=== PATIENT | female | born 1945 | race Caucasian/White ===

== ENCOUNTER 2021-11-30 19:23 | Emergency (ER) | payer MEDICARE, SELFPAY ==
[2021-11-30 19:23] VITALS: BP 152/99; PULSE 71; RESP 16; TEMP 36.7; O2SAT 98; BMI 21.4
--- NOTE | 2021-11-30 19:55 | RAD_ITS ---
INDICATION: fall EXAMINATION/TECHNIQUE: X-RAY - RIGHT XR Shoulder Min 2 Views 2 VIEWS COMPARISON: None. FINDINGS: SOFT TISSUES: No soft tissue swelling or gas. No radiopaque foreign body. BONES/JOINTS: Avulsion fracture without displacement involving the greater tuberosity. No other fracture exemplified. Normal glenohumeral and acromioclavicular joint spacing and alignment. Preservation of the joint space and no degenerative bony proliferative changes. No sclerotic or destructive changes observed. Nodule in the periphery of the right lower lobe, 4 mm. Correlation with prior chest imaging recommended. RAD/Shoulder min 2 Views IMPRESSION: Motion fracture right greater tuberosity. Electronically Signed: Marck Holland DO at 20:32 EDT ,
--- NOTE | 2021-11-30 20:00 | EDS_ITS ---
HPI History of Present Illness HPI Narrative: Tripped and fell in her home landing on the hardwood floor striking her right forehead and right shoulder. Chief Complaint: Upper Extremity Injury Informant: patient Occured/Mechanism Mechanism/Context: Yes injury and Yes blunt trauma Onset/Context/Timing Onset: Today and Hours Context: Sudden Onset Timing: Continuous Current Severity: Moderate Maximum Severity: Moderate Associated Symptoms Associated Symptoms: Negative for Parasthesia, Weakness or Loss of Funtion Narrative Narrative: 76-year-old female history of high cholesterol. She was coming in for about side will begin rain today. She was carrying a pillow wearing flip-flops. She tripped fell striking her right forehead and right shoulder on the hardwood leena or. No LOC. She is on no blood thinners not even aspirin. Denies any neck pain. Denies any vomiting. Complaining of right shoulder pain. She is right- hand dominant. Prior similar symptoms: No Recent Illness/Hospitalization: No PFSH PFSH Medical History Arthritis High cholesterol Home Medications atorvastatin 10 mg tablet 10 mg PO QHS 09/10/15 [History Last Taken Unknown] calcium carbonate 600 mg-vitamin D3 20 mcg (800 unit) tablet 1 ea PO BID 09/10/15 [History Last Taken Unknown] fish oil-dha-epa 1,200 mg-144 mg-216 mg capsule 1 ea PO BID 09/10/15 [History L ast Taken Unknown] ibuprofen 200 mg tablet (Motrin IB) 400 mg PO PRN PRN Pain 09/10/15 [History Last Taken Unknown] multivit with orwjghxt-yncz-QA-lutein 8 mg iron-400 mcg-300 mcg tablet (Centrum Silver Women) 1 ea PO DAILY 09/10/15 [History Last Taken Unknown] omeprazole 20 mg capsule,delayed release 20 mg PO QHS PRN Indigestion 09/10/15 [History Last Taken Unknown] aspirin 325 mg tablet 325 mg PO BID ##60 09/12/15 [Rx Last Taken Unknown] cephalexin 500 mg capsule (Keflex) 500 mg PO 4X/DAY ##4 09/12/15 [Rx Last Taken Unknown] docusate sodium 100 mg capsule (DOK) 100 mg PO BID ##20 09/12/15 [Rx Last Taken Unknown] hydrocodone-acetaminophen 5-325mg 5mg-325mg 1 - 2 tab PO Q4H PRN PRN Pain ##60 09/12/15 [Rx Last Taken Unknown] ondansetron 4 mg disintegrating tablet 4 mg PO Q6H PRN PRN Nausea ##20 09/12/15 [Rx Last Taken Unknown] Allergy/AdvReac Type Severity Reaction Status Date / Time No Known Allergies Allergy Verified 11/30/21 19:26 Social History Smoking Status: Never smoker ROS ROS ED ROS Narrative Denies recent illness. Review of Systems ROS Unobtainable: Denies due to encephalopathy Constitutional Constitutional ED: Denies chills Eyes Eyes: Denies blurry vision ENT ENT ED: Denies ear pain Cardiovascular Cardiovascular: Denies chest pain Respiratory/Chest Respiratory/Chest: Denies cough Gastrointestinal Gastrointestinal: Denies abdominal pain Genitourinary Genitourinary ED: Denies dysuria Musculoskeletal Musculoskeletal: Denies back pain Neurologic Neurologic: Denies headache(s) Psychiatric Psychiatric: Denies anxiety Endocrine Endocrinology: Denies cold intolerance Hematologic/Lymphatic Hematologic/Lymphatic: Denies easy bleeding Allergic/Immunologic Allergic/Immunologic ED: Denies mouth swelling EXAM Physical Exam Narrative Exam Narrative: Well-appearing 76-year-old female. Looks younger than stated age. Vital signs stable afebrile. H EENT exam give dry reactive light. She has a contusion to her right for about the size of a quarter. No other facial or scalp trauma C- spine nontender trachea midline. Lungs are clear. Heart regular rhythm no murmur. Chest wall nontender. Abdomen soft nontender. Pelvic girdle intact. Left upper both lower extremities are nontender normal range of motion. Normal strength. Right shoulder pain on palpation. Limited AB and adduction due to pain. Distal humerus, elbow, right forearm wrist and hand are nontender neurovascular intact with normal marine gear keeper strength. Back and spine nontender. Neurologically she is awake and alert with no focal motor deficits. GCS of 15. Const Vital Signs: 11/30/21 19:23 11/30/21 19:34 Temperature 98.0 F Temperature Source Temporal Pulse Rate 71 Respiratory Rate 16 Respiratory Effort Normal Non-Labored Respiratory Depth Normal Respiratory Pattern Normal Blood Pressure 152/99 H Blood Pressure Mean 116 Pulse Ox 98 Oxygen Delivery Method Room Air Room Air Positive well nourished and well developed; Negative for obese, cachectic, contractures or unkempt General Appearance ED: well developed; Negative for unkempt, cachectic or contractures Nutritional Appearance: Negative for cachectic or obese HEENT Reports moist mucous membranes trauma; Negative for normocephalic, atraumatic or tenderness Eyes PERRL and EOMs intact bilaterally Neck full ROM and supple General: Negative for tenderness Lymph Lymphatic: Negative for other Chest Wall inspection of chest normal and palpation of chest normal Resp normal respiratory effort and clear to auscultation bilaterally Effort and Inspection: Negative for pain with movement Auscultation: Negative for rales or rhonchi Cardio regular rate, regular rhythm, S1 normal heart sound, S2 normal heart sound and no murmurs Rate: Negative for bradycardia Rhythm: Negative for abnormal rhythm GI non-tender, non-distended and no masses Inspection: Negative for abdominal distention Auscultation: normoactive bowel sounds Palpation: soft; Negative for tender or guarding Back/Spine no CVA tenderness General Back: Negative for CVA tenderness Cervical Spine: Negative for cervical spine tenderness Thoracic Spine / Upper Back: Negative for thoracic spinal tenderness Lumbar Spine / Lower Back: Negative for lumbar spinal tenderness Extremity normal to inspection and full ROM Extremity Narrative: Except right shoulder tender. Held flexed at the elbow. Internally rotated. Does not want to do any range of motion of the shoulder due to pain. Right elbow forearm wrist and hand are nontender neurovascular intact. Neuro oriented x3, CN's II-XII intact bilaterally, moves all extremities, no focal motor deficits and no sensory deficits noted Sensorium / Orientation: alert, oriented to person, oriented to place and oriented to time; Negative for orientation impaired, lethargic or stuporous Motor Exam: strength 5/5 throughout Psych mental status grossly normal Appearance: Negative for unkempt Attitude: No agitated Mood & Affect: Negative for depressed, anxious or tearful Skin General Skin Exam: Negative for petechiae Lesions: no lesions Rashes: no rashes Trauma: no lacerations or abrasions MDM MDM MDM Narrative Medical decision making narrative: 76-year-old at home tripped and fell has a contusion to her right forehead. She is on no blood thinners. No LOC. Completely normal neurologic exam I do not think she needs any imaging or brain. She does have pain in her right shoulder from the fall x-ray being obtained. She did not want anything for pain. Repeat exam unchanged. Discussed with patient x-rays. She was placed in a sling. Follow-up with orthopedics. Radiography Diagnostic Testing: Right shoulder x-ray 2 views interpreted by myself shows avulsion fracture of the humeral head at the greater tuberosity. I did go over these films with the patient and her . Discharge Plan Triage Chief Complaint: Upper Extremity Injury ED Provider: Chandrakant Bernal Dx/Rx/DC Orders Clinical Impression: Fall, Head injury, Fracture, humerus Instructions: ED Fracture, Upper Extremity, ED Head Injury (Adult) Prescriptions: No Action atorvastatin 10 MG tablet 10 mg PO QHS Label Comments: CHOLESTEROL omeprazole 20 MG capsule 20 mg PO QHS PRN (Reason: Indigestion) Label Comments: REFLUX fish oil-dha-epa 1 EACH capsule 1 ea PO BID Label Comments: SUPPLEMENT narhlpjn-hgg-dzoq-FA-lutein [Centrum Silver Women] 1 EACH tablet 1 ea PO DAILY calcium carbonate-vitamin D3 1 EACH tablet 1 ea PO BID ibuprofen [Motrin IB] 200 MG tablet 400 mg PO PRN PRN (Reason: Pain) aspirin 325 MG tablet 325 mg PO BID Qty: 60 0RF hydrocodone-acetaminophen 1 TABLET tablet 1 - 2 tab PO Q4H PRN PRN (Reason: Pain) Qty: 60 0RF cephalexin [Keflex] 500 MG capsule 500 mg PO 4X/DAY Qty: 4 0RF docusate sodium [DOK] 100 MG capsule 100 mg PO BID Qty: 20 1RF ondansetron 4 MG tablet 4 mg PO Q6H PRN PRN (Reason: Nausea) Qty: 20 0RF Primary Care Provider: Abilio Mcbride Referrals: Abilio Mcbride DO [Primary Care Provider] - Colt Driscoll MD [STAFF PHYSICIAN] - As soon as possible Activity Restrictions/Additional Instructions: Ice to your shoulder. Sling when you are up and around. You can take it off to sleep and to bathe. Tylenol and Motrin for pain. Head injury instructions return if severe headache, vomiting or not acting herself. Call and follow-up with orthopedic doctor for your shoulder fracture. Disposition Disposition: Home, Self Care
== END 2021-11-30 20:34 | disposition home or self-care (01) ==
LOC: ED 20:14
PROVIDERS: Emergency Provider Emergency Medicine; PCP Student in an Organized Health Care Education/Training Program; Visit Provider Emergency Medicine
DX: S09.90XA Unspecified injury of head, initial encounter (principal); S42.251A Displaced fracture of greater tuberosity of right humerus, initial encounter for closed fracture; E78.00 Pure hypercholesterolemia, unspecified; M19.90 Unspecified osteoarthritis, unspecified site; W01.0XXA Fall on same level from slipping, tripping and stumbling without subsequent striking against object, initial encounter; Z79.899 Other long term (current) drug therapy
CPT/HCPCS: 73030; 99282

== ENCOUNTER → 2022-04-23 | Outpatient (CLI) | payer MEDICARE, SELFPAY ==
[2022-04-20 13:04] LABS: Creatinine, Serum 0.82 mg/dL (0.55-1.02); EST Glomerular Filtration Rate 72 mL/min (>60); Est Glom Filt Rate - Afr Amer 87 mL/min (>60)
--- NOTE | 2022-04-23 15:37 | MRI_ITS ---
EXAM: MR LEFT UPPER EXTREMITY WITHOUT AND WITH INTRAVENOUS CONTRAST, FOREARM CLINICAL INDICATION: SOFT TISSUE MASS L /FOREARM AREA MARKED WITH BEAD, NO PAIN TECHNIQUE: Multiplanar and multisequence MR images of the left forearm without and with intravenous contrast. This report was created using [employer] report [employer] technology. CONTRAST: 10 CC IV CLARISCAN COMPARISON: None. FINDINGS: MRI marker shows no underlying soft tissue or osseous abnormalities. BONES/JOINTS: Unremarkable. No fracture. No abnormal bone marrow signal. No joint effusion. MUSCLES: Unremarkable. No edema or myositis. OTHER SOFT TISSUES: Unremarkable. No solid or cystic mass. MRI/Upper Ext No Joint W/WO Cont IMPRESSION: Unremarkable MRI of the left forearm. Electronically Signed: Saul Tucker MD at 19:14 EST ,
== END | disposition home or self-care (01) ==
LOC: MRI 15:30
PROVIDERS: PCP Student in an Organized Health Care Education/Training Program; Visit Provider Specialist
DX: R22.32 Localized swelling, mass and lump, left upper limb (principal)
CPT/HCPCS: 36415; 73220; 82565; A9575

== ENCOUNTER 2025-05-02 14:27 | Emergency (ER) | payer MEDICARE, SELFPAY ==
[2025-05-02 14:28] VITALS: BP 165/68; PULSE 71; RESP 16; TEMP 36.1; O2SAT 98; BMI 21.5
--- NOTE | 2025-05-02 14:30 | RAD_ITS ---
PROCEDURE: ELBOW MIN 3 VIEWS 05/02/2025 REASON FOR EXAM: FALL TECHNIQUE: Procedure Code: RADEL Modality: DX Procedure: ELBOW MIN 3 VIEWS Laterality: Left elbow COMPARISON: None FINDINGS: Bones: Posteriorly displaced avulsion fracture of the olecranon process of the proximal ulna. Joints: Normal alignment. Soft tissues: Diffuse posterior soft tissue swelling. Other: RAD/Elbow min 3 Views IMPRESSION: Posterior displacement of an avulsion fracture of the olecranon process of the proximal ulna with overlying soft tissue swelling. Reading Location: [id number]
--- NOTE | 2025-05-02 17:08 | EX.ED.UPPERE ---
HPI History of Present Illness Chief Complaint: Upper Extremity Injury Detail of Chief Complaint: Injury to left elbow status post fall Onset/Context/Timing Onset: Today and Hours Context: Sudden Onset Timing: Continuous Quality of Pain: Aching Location: Left elbow left elbow Current Severity: Mild Maximum Severity: Severe Worsened by: Movement Relieved by: Remaining still Associated Symptoms Associated Symptoms: Positive for Loss of Funtion Narrative Narrative: Patient is a 79-year-old xzguu-hhni-drajmgus woman who fell because of mechanical fall. She did not hit her head. She is not on antithrombotic or anticoagulant. She denies visual, auditory or ocular symptoms. She denies neck pain. She denies paresthesia, anesthesia Medic[employer] upper extremity. She presents with significantly swollen left elbow. X-ray was obtained per nurse protocol. She states she has seen Dr. Driscoll in the past. She had to have operation on her right shoulder. Prior similar symptoms: No Recent Illness/Hospitalization: No [facility] Medical History (Updated 05/02/25 @ 17:[address] Zaheer Mixon MD) Osteoporosis High cholesterol Arthritis Home Medications ?Medication ?Instructions ?Recorded ?Last Taken ?Type atorvastatin 10 mg tablet 10 mg PO QHS 09/10/15 Unknown History calcium 600 mg (as 1 ea PO BID 09/10/15 Unknown History carbonate)-vitamin D3 20 mcg (800 unit) tablet fish oil-dha-epa 1,200 mg-144 1 ea PO BID 09/10/15 Unknown History mg-216 mg capsule ibuprofen 200 mg tablet (Motrin IB) 400 mg PO PRN PRN Pain 09/10/15 Unknown History nnwkunli-iqox-cyay 8 mg-folic 400 1 ea PO DAILY 09/10/15 Unknown History mcg-K 50 mcg-lutein 300 mcg tablet (Centrum Silver Women) omeprazole 20 mg capsule,delayed 20 mg PO QHS PRN Indigestion 09/10/15 Unknown History release aspirin 325 mg tablet 325 mg PO BID #60 tabs 09/12/15 Unknown Rx cephalexin 500 mg capsule (Keflex) 500 mg PO 4X/DAY ##4 09/12/15 Unknown Rx docusate sodium 100 mg capsule 100 mg PO BID ##20 09/12/15 Unknown Rx (DOK) hydrocodone-acetaminophen 5-325mg 1 - 2 tab PO Q4H PRN PRN Pain ##60 09/12/15 Unknown Rx 5mg-325mg ondansetron 4 mg disintegrating 4 mg PO Q6H PRN PRN Nausea #20 tabs 09/12/15 Unknown Rx tablet hydrocodone-acetaminophen 5-325mg 1 tab PO Q6H PRN PRN Pain 3 days 05/02/25 Unknown Rx 5mg-325mg #10 TABLETS Allergy/AdvReac Type Severity Reaction Status Date / Time No Known Allergies Allergy Verified 05/02/25 14:29 Family History no significant family his Social History (Updated 05/02/25 @ 17:[address] Zaheer Mixon MD) household members: spouse Smoking Status: Never smoker ROS ROS ED Musculoskeletal Musculoskeletal: Denies back pain, myalgias or neck pain Integumentary Denies Abrasions or rash Neurologic Neurologic: Denies paresthesias or weakness Hematologic/Lymphatic Hematologic/Lymphatic: Denies easy bleeding or easy bruising EXAM Physical Exam Const Vital Signs: 05/02/25 14:28 Temperature 97 F L Temperature Source Temporal Pulse Rate 71 Respiratory Rate 16 Blood Pressure 165/68 H Blood Pressure Mean 100 Pulse Ox 98 Oxygen Delivery Method Room Air Positive well nourished and well developed Constitutional Narrative: Blood pressure is elevated most likely due to the injury and pain General Appearance ED: well developed and NAD HEENT normocephalic and atraumatic Eyes PERRL and EOMs intact bilaterally Resp normal respiratory effort Cardio regular rate and regular rhythm Extremity Negative for normal to inspection or full ROM Extremity Narrative: There is obvious swelling of the left elbow. Median, radial and ulnar function intact. There is no pain the patient over the clavicle or AC joint. There is no pain the patient over the proximal humerus. Neuro oriented x3 and CN's II-XII intact bilaterally Sensorium / Orientation: alert Psych mental status grossly normal Skin Lesions: no lesions Rashes: no rashes MDM MDM MDM Narrative Medical decision making narrative: X-ray was obtained to evaluate for hematoma versus fracture versus fracture dislocation. Radiography Chest X-Ray - ED: Read by ED Physician (Three-view x-ray of the left elbow reveals an avulsion fracture of the olecranon. This is displaced. There is no other abnormality noted.) Diagnostic Testing: Clinical Impression(s) from Imaging Studies Elbow X-Ray 05/02/25 14:30 IMPRESSION: Posterior displacement of an avulsion fracture of the olecranon process of the proximal ulna with overlying soft tissue swelling. Reading Location: [id number] Management Discussion w/another healthcare provider: Physician Non Invasive Cardiologist (Spoke with Dr. Driscoll. He states to place her in slight extension. Have her call the office and he will discuss and make arrangements for ORIF) Discharge Plan Triage Chief Complaint: Upper Extremity Injury ED Provider: Zaheer Mixon Dx/Rx/DC Orders Clinical Impression: Displaced fracture of olecranon process of left ulna without intra-articular extension, Osteoporosis, Injury due to fall Instructions: ED Elbow Fracture Prescriptions: New hydrocodone-acetaminophen 5-325 mg tablet 1 tab PO Q6H PRN PRN (Reason: Pain) 3 Days Qty: 10 0RF No Action atorvastatin 10 MG tablet 10 mg PO QHS Patient Comments: CHOLESTEROL omeprazole 20 MG capsule 20 mg PO QHS PRN (Reason: Indigestion) Patient Comments: REFLUX fish oil-dha-epa 1 EACH capsule 1 ea PO BID Patient Comments: SUPPLEMENT cxanmbqv-jmt-qvxv-FA-vit K-lut [Centrum Silver Women] 1 EACH tablet 1 ea PO DAILY calcium carbonate-vitamin D3 1 EACH tablet 1 ea PO BID ibuprofen [Motrin IB] 200 MG tablet 400 mg PO PRN PRN (Reason: Pain) aspirin 325 MG tablet 325 mg PO BID Qty: 60 0RF hydrocodone-acetaminophen 1 TABLET tablet 1 - 2 tab PO Q4H PRN PRN (Reason: Pain) Qty: 60 0RF cephalexin [Keflex] 500 MG capsule 500 mg PO 4X/DAY Qty: 4 0RF docusate sodium [DOK] 100 MG capsule 100 mg PO BID Qty: 20 1RF ondansetron 4 MG tablet 4 mg PO Q6H PRN PRN (Reason: Nausea) Qty: 20 0RF Primary Care Provider: Abilio Mcbride Referrals: Abilio Mcbride DO [Primary Care Provider, Medical] Colt Driscoll MD [Med Staff - Active Staff, Orthopedics] - As soon as possible Activity Restrictions/Additional Instructions: 1. Keep your elbow elevated above your nose is much as possible to minimize swelling 2. Apply ice 6-8 times a day Print Language: Khmer Disposition Disposition: Home, Self Care
[2025-05-02] MEDS: HYDROcodone Bitartrate/Apap 5/325 Tablet PO (18:26)
[2025-05-02 18:33] VITALS: BP 165/78; PULSE 85; RESP 15; TEMP 36.9; O2SAT 100
== END 2025-05-02 18:34 | disposition home or self-care (01) ==
PROVIDERS: Emergency Provider Emergency Medicine; PCP Student in an Organized Health Care Education/Training Program; Visit Provider Emergency Medicine
DX: S52.022A Displaced fracture of olecranon process without intraarticular extension of left ulna, initial encounter for closed fracture (principal); E78.00 Pure hypercholesterolemia, unspecified; M81.0 Age-related osteoporosis without current pathological fracture; W19.XXXA Unspecified fall, initial encounter
CPT/HCPCS: 29105; 73080; 99283

== ENCOUNTER → 2025-05-04 | Outpatient (CLI) | payer MEDICARE, SELFPAY ==
--- NOTE | 2025-05-04 07:47 | EKG12_ITS ---
Test Reason : PRE OP Blood Pressure : */* mmHG Vent. Rate : 65 BPM Atrial Rate : 65 BPM P-R Int : 172 ms QRS Dur : 70 ms QT Int : 376 ms P-R-T Axes : 55 67 74 degrees QTcB Int : 391 ms Normal sinus rhythm with sinus arrhythmia Normal ECG Confirmed by Marck Charles ([id number]), story editor PRECIOUS CANO ([id number]) on 05/04/2025 9:46:56 AM Referred By: Aneta Escamilla Confirmed By: Marck Charles
--- OUTSIDE RECORDS SUMMARY | 2025-05-04 08:01 | XMS RPT_ITS | CCD ---
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 Name Role Phone Abilio Mcbride DO Primary Care Provider Abilio Mcbride Primary Care Unavailable Colt Driscoll Attending Unavailable Abilio Mcbride Primary Care Unavailable Chandrakant Bernal Attending Unavailable Abilio Mcbride DO Primary Care Provider Abilio Mcbride DO Primary Care Provider Wilde ENGINEER AUTOMATED EQUIPMENT.[employer] Unavailable Devante ENGINEER AUTOMATED EQUIPMENT.Marcie PINZON Unavailable Jennifer ENGINEER AUTOMATED EQUIPMENT.Tiffani PINZON Unavailable ABILIO MCBRIDE Referring Unavailable ABILIO MCBRIDE Primary Care Unavailable ABILIO MCBRIDE Referring Unavailable ABILIO MCBRIDE Primary Care Unavailable ABILIO MCBRIDE Primary Care Unavailable MARCIE MEDINA Referring Unavailable ABILIO MCBRIDE Referring Unavailable ABILIO MCBRIDE Primary Care Unavailable ABILIO MCBRIDE Attending Unavailable ABILIO MCBRIDE Primary Care Unavailable ABILIO MCBRIDE Primary Care Unavailable Medications Current Medications Medication Drug Class(es) Dates Sig (Normalized) Sig (Original) acetaminophen 325 mg / HYDROcodone bitartrate 5 mg oral tablet (2 sources) Opioid Agonist Start: 09-12-2015 take 1 tablet by mouth every four hours as needed Hydrocodone-Acet aminophen Active 1 - 2 TABLET PO EVERY 4 HOURS NEEDED 60 September 11, 2015 11:00pm aspirin 325 mg oral tablet (3 sources) Platelet Aggregation Inhibitor, Nonsteroidal Anti-inflammatory Drug Start: 09-12-2015 take 325 mg by mouth twice daily Aspirin Active 325 MG PO TWICE A DAY 60 September 11, 2015 11:00pm End: 01-25-2021 take 1 tablet by mouth once daily aspirin 81 mg chewable tablet Take 81 mg by mouth once daily. 01/25/2021 Discontinued atorvastatin 20 mg oral tablet (20 sources) HMG-CoA Reductase Inhibitor Start: 05-24-2023 End: 01-01-2025 take 1 tablet by mouth once daily at bedtime for hyperlipidemia atorvastatin (LIPITOR) 20 mg tablet Indications: Hyperlipidemia, mixed Take 1 tablet by mouth daily at bedtime. For cholesterol. 90 tablet 3 01/01/2025 Active Start: 01-27-2021 End: 02-22-2023 take 1 tablet by mouth once daily at bedtime for hyperlipidemia atorvastatin (LIPITOR) 20 mg tablet Indications: Hyperlipidemia, mixed Take 1 tablet by mouth daily at bedtime. For cholesterol. 90 tablet 3 02/22/2023 Active Start: 09-10-2015 End: 01-27-2021 take 1 tablet by mouth once daily atorvastatin (LIPITO R) 10 mg tablet Indications: Hyperlipidemia, mixed Take 1 tablet by mouth once daily. 90 tablet 3 01/24/2021 01/27/2021 Discontinued Comment on above: Take 1 tablet by aria th daily at bedtime. For cholesterol. calcium carbonate 1500 mg / cholecalciferol 800 unt oral tablet (2 sources) Vitamin D Start: 09-10-19 16 Calcium Carbonate-Vitamin D3 Active 1 EACH PO TWICE A DAY September 09, 2015 11:00pm calcium phosphate trib/vit D3 (CITRACAL + D3, CALCIUM PHOS, ORAL) (20 sources) take 2 tablets by mouth once daily calcium phosphate trib/vit D3 (CITRACAL + D3, CALCIUM PHOS, ORAL) Take 2 tablets by mouth once daily. Active take 2 tablets by mouth once jose ly calcium phosphate trib/vit D3 (CITRACAL + D3, CALCIUM PHOS, ORAL) Take 2 tablets by mouth once daily. 0 Active Comment on above: Take 2 tablets by mo [facility] once daily. cephalexin 500 mg oral capsule (2 sources) Cephalosporin Antibacterial Start: 6 take 1 capsule by mouth four times daily Cephalexin (Keflex) 500 MG capsule Active 500 MG PO 4 TIMES DAILY 4 September 11, 2015 11:00pm cholecalciferol, vitamin D3, (VITAMIN D3 ORAL) (20 sources) take 2 tablets by mouth once daily cholecalciferol, vitamin D3, (VITAMIN D3 ORAL) Take 2 tablets by mouth once daily. Active take 2 tablets by mouth once jose ly cholecalciferol, vitamin D3, (VITAMIN D3 ORAL) Take 2 tablets by mouth once daily. 0 Active Comment on above: Take 2 tablets by mo [facility] once daily. docusate sodium 100 mg oral capsule (2 sources) Start: 09-12-2015 take 1 capsule by mouth twice daily Docusate Sodium (Dok) 100 MG capsule Active 100 MG PO TWICE A DAY September 11, 2015 11:00pm Fish Oil-Dha-Epa (2 sources) Start: 09-10-2015 Fish Oil-Dha-Epa Active 1 EACH PO TWICE A DAY September 09, 2015 11:00pm Start: 09-10-2015 Fish Oil-Dha-E pa Active 1 EACH PO TWICE A DAY September 10, 2015 12:00am ibuprofen 200 mg oral tablet (20 sources) Nonsteroidal Anti-inflammatory Drug Start: 09-10-2015 Ibuprofen (Motrin Ib) 200 MG tablet Active 400 MG PO NEEDED September 09, 2015 11:00pm End: 01-27-2023 take 3 tablets by mouth every six hours as needed ibuprofen (MOTRIN) 200 mg tablet Take 600 mg by mouth every 6 hours as needed for pain. 0 01/27/2023 Discontinued Comment on above: Take 600 mg by mouth every 6 hours as needed for pain. losartan potassium 50 mg oral tablet (20 sources) Angiotensin 2 Receptor Gabino Start: 02-15-2024 End: 01-10-2025 losartan (COZAAR) 50 mg tablet Indications: Hypertension, unspecified type TAKE 1 TABLET ONCE DAILY 90 tablet 1 12/18/2024 Active Start: 11-09-2022 End: 02-15-2024 take 1 tablet by mouth once daily losartan (COZAAR) 25 mg tablet Take 1 tablet by mouth once daily. For blood pressure 90 tablet 1 10/05/2023 02/15/2024 Discontinued Start: 08-24-2022 End: 11-07-2022 take 1 tablet by mouth once daily losartan (COZAAR) 25 mg tablet Take 1 tablet by mouth once daily. For blood pressure 90 tablet 1 08/24/2022 11/07/2022 Discontinued Start: 06-05-2022 End: 08-22-2022 take 1 tablet by mouth once daily losartan (COZAAR) 25 mg tablet Take 1 tablet by mouth once daily. For blood pressure 90 tablet 1 06/05/2022 08/22/2022 Discontinued Comment on above: Take 1 tablet by aria th once daily. For blood pressure MEDICATION, NON-DATABASE (20 sources) MEDICATION, NON- DATABASE Aloe Gel Active MEDICATION, NON- DATABASE Take by mouth once daily. Turmeric Active MEDICATION, NON- DATABASE Take by mouth once daily. Turmeric 0 Active MEDICATION, NON- DATABASE Aloe Gel 0 Active MEDICATION, NON- DATABASE Tumeric 0 Active Comment on above: Aloe Gel Tumeric Take by mouth once d aily. Turmeric Wyqgrpce-Vsi-Xoje-Fa-[place] tein (Centrum Silver Women Tablet) 1 EACH tablet (2 sources) Start: 09-10-2015 Aklqdxqq-Fon-Btis-Fa- Lutein (Centrum Silver Women Tablet) 1 EACH tablet Active 1 EACH PO DAILY September 09, 2015 11:00pm Start: 09-10-2015 Wnwcubrv-Fio-M sac-Sb-Gomxyl (Centrum Silver Women Tablet) 1 EACH tablet Active 1 EACH PO DAILY September 10, 2015 12:00am MULTIVITAMIN TAB (20 sources) Start: 05-29-2005 MULTIVITAMIN TAB Take one(1) tablet daily. 0 05/29/2005 Active Comment on above: Take one(1) tablet d aily. nirmatrelvir tablet 300 mg (150 mg x 2) and ritonavir tablet 100 mg in a dose pack (PAXLOVID) (1 source) Start: 02-23-2022 End: 02-28-2022 nirmatrelvir tablet 300 mg (150 mg x 2) and ritonavir tablet 100 mg in a dose pack (PAXLOVID) Indications: COVID-19 Administer TWO pink nirmatrelvir 150 mg tablets and ONE white ritonavir 100 mg tablet for a total of three tablets twice daily. 30 tablet 0 02/23/2022 02/28/2022 Active Comment on above: Administer TWO pink nirmatrelvir 150 mg tablets and ONE white ritonavir 100 mg tablet for a total of three tablets twice daily. omega-3 fatty acids(FISH OIL 500 MG CAP) (20 sources) Start: 04-26-2008 omega-3 fatty acids(FISH OIL 500 MG CAP) Take one(1) capsule daily. 0 0 04/26/2008 Active Comment on above: Take one(1) capsule daily. ondansetron 4 mg disintegrating oral tablet (2 sources) Serotonin-3 Receptor Antagonist Start: 09-12-2015 take 4 mg by mouth every six hours as needed Ondansetron Active 4 MG PO EVERY 6 HOURS NEEDED September 11, 2015 11:00pm polyethylene glycol 3350 394582 mg / potassium chloride 2970 mg / sodium bicarbonate 6740 mg / sodium chloride 5860 mg / sodium sulfate 98241 mg powder for oral solution (1 source) Osmotic Laxative Start: 04-13-2022 End: 04-13-2022 peg 3350-Electrolytes (GOLYTELY) 236-22.74-6.74 -5.86 gram suspension Indications: Screening for colon cancer Take 4,000 mL by mouth one time only for 1 dose. Refer to printed prep instructions from your provider. 4000 mL 0 04/13/2022 04/13/2022 Active Comment on above: Take 4,000 mL by aria th one time only for 1 dose. Refer to printed prep instructions from your provider. 100 ml zoledronic acid 0.05 mg/ml injection (20 sources) Bisphosphonate Start: 10-24-2024 5 mg, INTRAVENOUS, at 400 mL/hr, Administer over 15 Minutes, ONCE, 1 dose, On Wed10/24/24 at 1200, Hazardous Potential Reproductive Risk Drug: Use appropriate PPE. Start: 10-23-2024 zoledronic aci d (RECLAST) 5 mg/100 mL PREMIX piggyback Inject 100 mL intravenously every year. Patient should start on October 23, 2024. 100 mL 2 10/23/2024 Active Start: 10-23-2024 zoledronic aci d (RECLAST) 5 mg/100 mL PREMIX piggyback Inject 100 mL intravenously every year. Patient should start on October 23, 2024. 100 mL 2 10/23/2024 Active Start: 10-23-2024 zoledronic aci d (RECLAST) 5 mg/100 mL PREMIX piggyback Inject 100 mL intravenously every year. Patient should start on October 23, 2024. 100 mL 2 10/23/2024 Active Start: 10-23-2024 zoledronic aci d (RECLAST) 5 mg/100 mL PREMIX piggyback Inject 100 mL intravenously every year. Patient should start on October 23, 2024. 100 mL 2 10/23/2024 Active Start: 10-23-2024 zoledronic aci d (RECLAST) 5 mg/100 mL PREMIX piggyback Inject 100 mL intravenously every year. Patient should start on October 23, 2024. 100 mL 2 10/23/2024 Active Start: 10-23-2024 zoledronic aci d (RECLAST) 5 mg/100 mL PREMIX piggyback Inject 100 mL intravenously every year. Patient should start on October 23, 2024. 100 mL 2 10/23/2024 Active Start: 10-23-2024 zoledronic aci d (RECLAST) 5 mg/100 mL PREMIX piggyback Inject 100 mL intravenously every year. Patient should start on October 23, 2024. 100 mL 2 10/23/2024 Active Start: 10-23-2024 zoledronic aci d (RECLAST) 5 mg/100 mL PREMIX piggyback Inject 100 mL intravenously every year. Patient should start on October 23, 2024. 100 mL 2 10/23/2024 Active Start: 10-23-2024 zoledronic aci d (RECLAST) 5 mg/100 mL PREMIX piggyback Inject 100 mL intravenously every year. Patient should start on October 23, 2024. 100 mL 2 10/23/2024 Active Start: 10-23-2024 zoledronic aci d (RECLAST) 5 mg/100 mL PREMIX piggyback Inject 100 mL intravenously every year. Patient should start on October 23, 2024. 100 mL 2 10/23/2024 Active Start: 10-23-2024 zoledronic aci d (RECLAST) 5 mg/100 mL PREMIX piggyback Inject 100 mL intravenously every year. Patient should start on October 23, 2024. 100 mL 2 10/23/2024 Active Start: 10-23-2024 zoledronic aci d (RECLAST) 5 mg/100 mL PREMIX piggyback Inject 100 mL intravenously every year. Patient should start on October 23, 2024. 100 mL 2 10/23/2024 Active Start: 10-23-2024 zoledronic aci d (RECLAST) 5 mg/100 mL PREMIX piggyback Inject 100 mL intravenously every year. Patient should start on October 23, 2024. 100 mL 2 10/23/2024 Active Start: 10-19-2023 zoledronic aci d 5 mg PREMIX piggyback (RECLAST) Start: 10-01-2023 End: 02-15-2024 inject 100 mL intravenously once zoledronic acid (RECL AST) 5 mg/100 mL PREMIX piggyback Inject 100 mL intravenously one time only for 1 dose. 100 mL 10/19/2023 02/15/2024 Discontinued Start: 06-15-2022 End: 07-15-2022 zoledronic acid 5 mg PREMIX piggyback (RECLAST) Completed/Discontinued Medications Medication Drug Class(es) Dates Sig (Normalized) Sig (Original) calcium citrate 1190 mg / cholecalciferol 0.005 mg oral tablet (1 source) Vitamin D Start: 05-29-2005 End: 01-25-2021 CITRACAL + D 250 MG-62.5 UNIT TAB Take two tablets once daily 0 05/29/2005 01/25/2021 Discontinued famotidine 20 mg oral tablet (20 sources) Histamine-2 Receptor Antagonist End: 01-27-2023 famotidine (PEPCID ORAL) Take 20 mg by mouth. 01/27/2023 Discontinued famotidine (PEPC ID ORAL) Take by mouth. 0 Active Comment on above: Take by mouth. Take 20 mg by mouth. meloxicam 15 mg oral tablet (6 sources) Nonsteroidal Anti-inflammatory Drug Start: 01-25-20 21 End: 02-24-20 22 take 1 tablet by mouth once daily as needed for pain meloxicam (MOBIC) 15 mg tablet Indications: Neck pain , Other osteoarthritis of spine, lumbar region Take 1 tablet by mouth once daily. As needed for neck pain, Take with food. 90 tablet 3 01/24/2021 02/23/2022 Discontinued Comment on above: Take 1 tablet by aria once daily. As needed for neck pain, Take with food. omeprazole 40 mg delayed release oral capsule (10 sources) Proton Pump Inhibitor Start: 06-16-19 23 End: 01-28-20 23 take 1 capsule by mouth once daily omeprazole (PRILOSEC) 40 mg capsule Take 1 capsule by mouth once daily. 30 capsule 2 06/16/2022 06/24/2022 Discontinued Start: 09-10-2015 take 20 mg by mouth at bedtime Omeprazole Active 20 MG PO AT BEDTIME September 09, 2015 11:00pm Comment on above: Take 1 capsule by [facility] once daily. Problems Active Problems Problem Classification Problem Date Documented Da te Episodic/Chronic Abdominal hernia (1 source) Hiatal hernia; Translations: [Diaphragmatic hernia without obstruction or gangrene] Episodic Disorders of lipid metabolism (20 sources) Mixed hyperlipidemia; Translations: [Mixed hyperlipidemia] Onset: 9 Chronic E Codes: Fall (2 sources) Fall; Translations: [Unspecified fall, initial encounter] Episodic Esophageal disorders (5 sources) Gastroesophageal reflux disease; Translations: [Gastro-esophageal reflux disease without esophagitis] Chronic Essential hypertension (5 sources) Hypertensive disorder; Translations: [Essential (primary) hypertension] Onset: 5 01-27-2023 Chronic Gastritis and duodenitis (1 source) Chronic superficial gastritis; Translations: [Chronic superficial gastritis without bleeding] Chronic Hemorrhoids (20 sources) Hemorrhoids; Translations: [Unspecified hemorrhoids] Onset: 2 05-28-2005 Episodic Osteoporosis (2 sources) Osteoporosis; Translations: [Age-related osteoporosis without current pathological fracture] 01-27-2023 Chronic Other bone disease and musculoskeletal deformities (20 sources) Disorder of skeletal system; Translations: [Disorder of bone, unspecified] 05-28-2005 Episodic Other gastrointestinal disorders (3 sources) History of gastritis; Translations: [Personal history of other diseases of the digestive system] Episodic Other injuries and conditions due to external causes (2 sources) Injury of head; Translations: [Unspecified injury of head, initial encounter] Episodic Other skin disorders (1 source) Localized swelling, mass and lump, left upper limb; Translations: [Localized swelling, mass and lump, left upper limb] Onset: 2 Episodic Pathological fracture (2 sources) Osteoporosis; Translations: [Other osteoporosis with current pathological fracture, unspecified site, sequela] Episodic Residual codes; unclassified (4 sources) Family history of cancer of colon; Translations: [Family history of malignant neoplasm of digestive organs] Episodic Spondylosis; intervertebral disc disorders; other back problems (20 sources) Spondylosis; Translations: [Spondylosis, unspecified] Onset: 1 01-25-2021 Chronic Viral infection (1 source) Disease caused by 2019-nCoV; Translations: [COVID-19] Episodic Past or Other Problems Problem Classification Problem Date Documented Date Episodic/Chronic Diabetes mellitus without complication (20 sources) Hyperglycemia; Translations: [Hyperglycemia, unspecified] Onset: 01-25-2021 01-25-2021 Episodic Esophageal disorders (20 sources) Esophagitis; Translations: [Esophagitis, unspecified] Onset: 10-29-2011 10-29-2011 Episodic Fracture of upper limb (20 sources) Fracture of humerus ; Translations: [Unspecified fracture of shaft of humerus, unspecified arm, initial encounter for closed fracture] Onset: 01-26-2022 Episodic Other bone disease and musculoskeletal deformities (20 sources) Senile osteopenia; Translations: [Other specified disorders of bone density and structure, unspecified site] Onset: 11-21-2019 11-21-2019 Episodic Other bone disease and musculoskeletal deformities (1 source) Other specified disorders of bone density and structure, unspecified site; Translations: [Osteopenia, senile] Onset: 11-21-2019 Episodic Other injuries and conditions due to external causes (1 source) Unspecified injury of head, initial encounter; Translations: [Unspecified injury of head, initial encounter] Onset: 12-03-2021 Episodic Other screening for suspected conditions (not mental disorders or infectious disease) (20 sources) Patient encounter status; Translations: [Encounter for screening for malignant neoplasm of colon] Onset: 05-03-2024 Episodic Residual codes; unclassified (20 sources) Family history of malignant neoplasm of gastrointestinal tract; Translations: [Family history of malignant neoplasm of digestive organs] Onset: 10-29-2011 10-29-2011 Episodic Spondylosis; intervertebral disc disorders; other back problems (20 sources) Neck pain; Translations: [Cervicalgia] Onset: 01-25-2021 01-25-2021 Episodic Results Test Name Value Interpretation Reference Range [facility] 25-hydroxyvitamin D3 [Mass/Vol] 55.5 ng/mL Normal 31.0-80.0 [facility] Comment on above: Order Comment: Speci men Type: BLOOD SPECIMEN Ordering Facility: [facility] Address: [address] [place] [address] Result Comment: Clas sification of 25 [place] Vitamin D status: Deficiency/Insufficiency: < or = 30 ng/ml. Sufficiency/Optimal Levels: 31-80 ng/mL Toxicity: > 100 ng/mL. Test performed by chemiluminescent immunoassay. Performed By: #### 1 989-3 #### [facility] CLIA [id number] [address] [place], [place] [id number] [place] CBC W Auto Differential pane l (Bld)on 02-19-2025 Basophils (Bld) [#/Vol] 0.03 10*3/uL Normal <0.11 [facility] Comment on above: Order Comment: Speci men Type: BLOOD SPECIMEN Ordering Facility: [facility] Address: [address] [place] [address] Performed By: #### 2 4331-1, 3015-07, #### [facility] CLIA [id number] [address] [place] [address] [place] Basophils/100 WBC (Bld) 0.7 % Normal [facility] Comment on above: Order Comment: Speci men Type: BLOOD SPECIMEN Ordering Facility: [facility] Address: [address] [place] [address] Performed By: #### 2 4331-1, 3015-07, #### [facility] CLIA [id number] [address] [place] [address] [place] Differential cell count method Nom (Bld) Auto Normal [facility] Comment on above: Order Comment: Speci men Type: BLOOD SPECIMEN Ordering Facility: [facility] Address: [address] [place], [place] [id number] Performed By: #### 2 4331-1, 3015-07, #### [facility] CLIA [id number] [address] [place] [address] [place] Eosinophils (Bld) [#/Vol] 0.17 10*3/uL Normal <0.46 [facility] Comment on above: Order Comment: Speci men Type: BLOOD SPECIMEN Ordering Facility: [facility] Address: [address] [place] [address] Performed By: #### 2 4331-1, 3015-07, 1987-09, #### [facility] CLIA [id number] [address] [place] [address] [place] Eosinophils/100 WBC (Bld) 4.1 % Normal [facility] Comment on above: Order Comment: Speci men Type: BLOOD SPECIMEN Ordering Facility: [facility] Address: [address] [place], [place] [id number] Performed By: #### 2 4331-1, 3015-07, 1987-09, #### [facility] CLIA [id number] [address] [place], [place] [id number] [place] Erythrocyte distribution width (RBC) [Ratio] 12.9 % Normal 11.5-15.0 [facility] Comment on above: Order Comment: Speci men Type: BLOOD SPECIMEN Ordering Facility: [facility] Address: [address] [place], [place] [id number] Performed By: #### 2 4331-1, 3015-07, 1987-09, #### [facility] CLIA [id number] [address] [place] [address] [place] Hematocrit (Bld) [Volume fraction] 38.9 % Normal 36.0-46.0 [facility] Comment on above: Order Comment: Speci men Type: BLOOD SPECIMEN Ordering Facility: [facility] Address: [address] [place] [address] Performed By: #### 2 4331-1, 3015-07, 1987-09, #### [facility] CLIA [id number] [address] [place] [address] [place] Hemoglobin (Bld) [Mass/Vol] 13.6 g/dL Normal 11.5-15.5 [facility] Comment on above: Order Comment: Speci men Type: BLOOD SPECIMEN Ordering Facility: [facility] Address: [address] [place] [address] Performed By: #### 2 4331-1, 3015-07, 1987-09, #### [facility] CLIA [id number] [address] [place] [address] [place] Immature granulocytes (Bld) [#/Vol] 10*3/uL Normal <0.10 [facility] Comment on above: Order Comment: Speci men Type: BLOOD SPECIMEN Ordering Facility: [facility] Address: [address] [place] [address] Performed By: #### 2 4331-1, 3015-07, 1987-09, #### [facility] CLIA [id number] [address] [place] [address] [place] Immature granulocytes/100 WBC (Bld) 0.0 % Normal [facility] Comment on above: Order Comment: Speci men Type: BLOOD SPECIMEN Ordering Facility: [facility] Address: [address] [place] [address] Performed By: #### 2 4331-1, 3015-07, 1987-09, #### [facility] CLIA [id number] [address] [place] [address] [place] Lymphocytes (Bld) [#/Vol] 1.96 10*3/uL Normal 1.00-4.00 [facility] Comment on above: Order Comment: Speci men Type: BLOOD SPECIMEN Ordering Facility: [facility] Address: [address] [place] [address] Performed By: #### 2 4331-1, 3015-07, 1987-09, #### [facility] CLIA [id number] [address] [place], [place] [id number] [place] Lymphocytes/100 WBC (Bld) 47.3 % Normal [facility] Comment on above: Order Comment: Speci men Type: BLOOD SPECIMEN Ordering Facility: [facility] Address: [address] [place] [address] Performed By: #### 2 4331-1, 3015-07, #### [facility] CLIA [id number] [address] [place] [address] [place] MCH (RBC) [Entitic mass] 32.3 pg Normal 26.0-34.0 [facility] Comment on above: Order Comment: Speci men Type: BLOOD SPECIMEN Ordering Facility: [facility] Address: [address] [place] [address] Performed By: #### 2 4331-1, 3015-07, 1987-09, #### [facility] CLIA [id number] [address] [place] [address] [place] MCHC (RBC) [Mass/Vol] 35.0 g/dL Normal 30.5-36.0 [facility] Comment on above: Order Comment: Speci men Type: BLOOD SPECIMEN Ordering Facility: [facility] Address: [address] [place] [address] Performed By: #### 2 4331-1, 3015-07, #### [facility] CLIA [id number] [address] [place] [address] [place] MCV (RBC) [Entitic vol] 92.4 fL Normal 80.0-100.0 [facility] Comment on above: Order Comment: Speci men Type: BLOOD SPECIMEN Ordering Facility: [facility] Address: [address] [place] [address] Performed By: #### 2 4331-1, 3015-07, 1987-09, #### [facility] CLIA [id number] [address] [place] [address] [place] Monocytes (Bld) [#/Vol] 0.37 10*3/uL Normal <0.87 [facility] Comment on above: Order Comment: Speci men Type: BLOOD SPECIMEN Ordering Facility: [facility] Address: [address] [place] [address] Performed By: #### 2 4331-1, 3015-07, #### [facility] CLIA [id number] [address] [place] [address] [place] Monocytes/100 WBC (Bld) 8.9 % Normal [facility] Comment on above: Order Comment: Speci men Type: BLOOD SPECIMEN Ordering Facility: [facility] Address: [address] [place] [address] Performed By: #### 2 4331-1, 3015-07, 1987-09, #### [facility] CLIA [id number] [address] [place] [address] [place] Neutrophils (Bld) [#/Vol] 1.61 10*3/uL Normal 1.45-7.50 [facility] Comment on above: Order Comment: Speci men Type: BLOOD SPECIMEN Ordering Facility: [facility] Address: [address] [place] [address] Performed By: #### 2 4331-1, 3015-07, #### [facility] CLIA [id number] [address] [place] [address] [place] Neutrophils/100 WBC (Bld) 39.0 % Normal [facility] Comment on above: Order Comment: Speci men Type: BLOOD SPECIMEN Ordering Facility: [facility] Address: [address] [place] [address] Performed By: #### 2 4331-1, 3015-07, 1987-09, #### [facility] CLIA [id number] [address] [place] [address] [place] Nucleated RBC (Bld) [#/Vol] 10*3/uL Normal <0.01 [facility] Comment on above: Order Comment: Speci men Type: BLOOD SPECIMEN Ordering Facility: [facility] Address: [address] [place], [place] [address] Performed By: #### 2 4331-1, 3015-07, 1987-09, #### [facility] CLIA [id number] [address] [place] [address] [place] Nucleated RBC/100 WBC (Bld) [Ratio] 0.0 /[address] [facility] Comment on above: Order Comment: Speci men Type: BLOOD SPECIMEN Ordering Facility: [facility] Address: [address] [place] [address] Performed By: #### 2 4331-1, 3015-07, 1987-09, #### [facility] CLIA [id number] [address] [place] [address] [place] Platelet mean volume (Bld) [Entitic vol] 9.9 fL Normal 9.0-12.7 [facility] Comment on above: Order Comment: Speci men Type: BLOOD SPECIMEN Ordering Facility: [facility] Address: [address] [place] [address] Performed By: #### 2 4331-1, 3015-07, 1987-09, #### [facility] CLIA [id number] [address] [place] [address] [place] Platelets (Bld) [#/Vol] 272 10*3/uL Normal 150-400 [facility] Comment on above: Order Comment: Speci men Type: BLOOD SPECIMEN Ordering Facility: [facility] Address: [address] [place] [address] Performed By: #### 2 4331-1, 3015-07, 1987-09, #### [facility] CLIA [id number] [address] [place] [address] [place] RBC (Bld) [#/Vol] 4.21 10*6/uL Normal 3.90-5.20 [facility] Comment on above: Order Comment: Speci men Type: BLOOD SPECIMEN Ordering Facility: [facility] Address: [address] [place] [address] Performed By: #### 2 4331-1, 3015-3, 1987-09, #### [facility] CLIA [id number] [address] [place] [address] [place] WBC (Bld) [#/Vol] 4.14 10*3/uL Normal 3.70-11.00 [facility] Comment on above: Order Comment: Speci men Type: BLOOD SPECIMEN Ordering Facility: [facility] Address: [address] [place] [address] Performed By: #### 2 4331-1, 3015-07, 1987-09, #### [facility] CLIA [id number] [address] [place] [address] [place] CNOVon 02-19-2025 CNOV Office Visit (FAMPWS ) CELESTINOELADIA ([id number]) 1945 F Date Time Provider Department 02/19/25 9:00 AM ABILIO MCBRIDE FAMPWS During your visit today, we recorded the following information about you: Temperature Pulse Respiration Blood pressure 97.1 degrees 72/minute 16/minute 140/90 Weight Height 56.6 kg 1.66 m Abilio Mcbride, 02/19/2025 10:38 AM Signed Eladia Mcwilliams Celestino is a 79 year old female here for a Medicare wellness visit. Medicare Health Risk Assessment General Health Very good Exercise: Minutes/Day 40 min Exercise: Days/Week 5 days Alcohol: Daily Use 4 or more times a week Alcohol: Drinks/Day 1 or 2 Alcohol: 6 or more drinks Never Feel off balance No Concerns: Teeth/Dentures No Concerns: Sexual function No Troubled by feelings None of the above Frequency: Eating healthy diet More than half the days ADLs requiring help None of the above Safety precautions in home/vehicle Yes Smoke, vape, chews tobacco No Difficulty hearing No Difficulty seeing No Current Providers Specialists: I have reviewed specialist-related care of the patient in the medical record. Medical/Family history review Reviewed and updated problem list, medical/surgical/famil y/social history, medications, and allergies. Opioid use review Opioid Medications (last 90 days) No data to display Anxiety/Depression screening PHQ-9 Score: 2 (Minimal Depression) ALL-7 Score: 0. Recommendation: no further intervention at this time Cognitive screening Mini Cog Score: 5 Cognitive screening reviewed and No further action needed (score 3-5). Functional Observation Was the patient's Timed Up AND Go test unsteady or >= 12 seconds? No Advance Care Planning Surrogate decision maker and/or advance care plan documented Measurements BP 140/90 Pulse 72 Temp 36.2 ?C (97.1 ?F) (Left Tympanic) Resp 16 Ht 166 cm (5' 5.35) Wt 56.6 kg (124 lb 12.8 oz) SpO2 98% BMI 20.54 kg/m? Vision Screening: Follows with optometry/ophthalmolog y Assessment/Plan Medicare annual wellness visit, subsequent (Z00.00) - Counseled on healthy diet and regular exercise - Fall avoidance information provided - Personalized prevention plan provided DO Reed Villagran Jordan L, DO 02/19/2025 10:38 AM Signed CC: Eladia Tirado is a 79 year old female who presents to the office for follow up HPI: HTN, well controlled, no concerns, taking medication as prescribed, denies any CP or dyspnea or dizziness or LH HPL, taking lipitor as prescribed. Osteoporosis, use of Reclast as prescribed. Some muscle aches/joint pains and fatigue, this is mild. Overall feeling well PAST MEDICAL HISTORY Diagnosis Date Arthritis Disorder of bone and cartilage, unspecified Esophagitis, unspecified Family history of malignant neoplasm of gastrointestinal tract Hypertension Internal hemorrhoids without mention of complication Other and unspecified hyperlipidemia Seasonal allergies Unspecified hemorrhoids without mention of complication Hemorrhoids PAST SURGICAL HISTORY Procedure Laterality Date COLONOSCOPY 12/11/2016 normal, repeat in 5 yrs due to family history COLONOSCOPY 06/16/2022 COLONOSCOPY FLX DX W/COLLJ SPEC WHEN PFRMD 2002 Colonoscopy COLONOSCOPY FLX DX W/COLLJ SPEC WHEN PFRMD 10/29/2011 repeat 5 years EGD 12/11/2016 gastritis and fundic gland polyps EGD 06/16/2022 EYE SURGERY HX FOOT SURGERY HX Right 08/2015 FRACTURE SURGERY SKIN BIOPSY HX Social History: SOCIAL HISTORY[1] FAMILY HISTORY Problem Relation Age of Onset Hypertension Mother Lipids Mother Blood Disease Mother Heart Mother CAD, CABG Kidney Disease Mother ESRD, on HD Cancer Father brain Heart Brother Heart Sister CAD, smoker Cancer Maternal Grandfather colon Cancer Maternal Aunt colon Colon Cancer Brother 50 Colon Cancer Brother 60 Current Outpatient prescriptions: atorvastatin (LIPITOR) 20 mg tablet Take 1 tablet by mouth daily at bedtime. For cholesterol. losartan (COZAAR) 50 mg tablet TAKE 1 TABLET ONCE DAILY zoledronic acid (RECLAST) 5 mg/100 mL PREMIX piggyback Inject 100 mL intravenously every year. Patient should start on October 23, 2024. calcium phosphate trib/vit D3 (CITRACAL + D3, CALCIUM PHOS, ORAL) Take 2 tablets by mouth once daily. cholecalciferol, vitamin D3, (VITAMIN D3 ORAL) Take 2 tablets by mouth once daily. MEDICATION, NON-DATABASE Aloe Gel MEDICATION, NON-DATABASE Take by mouth once daily. Turmeric omega-3 fatty acids(FISH OIL 500 MG CAP) Take one(1) capsule daily. MULTIVITAMIN TAB Take one(1) tablet daily. Allergies: ALLERGIES No Known Allergies ROS: See HPI PE: 02/19/25 0922 BP: 140/90 Pulse: 72 Resp: 16 Temp: 36.2 ?C (97.1 ?F) TempSrc: Left Tympanic SpO2: 98% Weight: 56.6 kg (124 lb 12.8 oz) Height: 166 cm (5' 5.35) G (more content not included)... Normal [facility] CRP SerPl-mCncon 02-19-2025 CRP [Mass/Vol] mg/L Normal <0.9 [facility] Comment on above: Order Comment: Speci men Type: BLOOD SPECIMEN Ordering Facility: [facility] Address: [address] [place] [address] Performed By: #### 2 4331-1, 3016-3, 1988-5, 30409-4 #### [facility] CLIA [id number] [address] [place] [address] [place] HbA1c (Bld)on 02-19-2025 Average glucose Estimated from glycated hemoglobin (Bld) [Mass/Vol] 105 mg/dL Normal [facility] Comment on above: Order Comment: Jaron men Type: BLOOD SPECIMEN Ordering Facility: [facility] Address: [address] [place] [address] Result Comment: eAG: (Estimated average glucose) is a calculated value from HgbA1c and is surgical device sales representative of the average blood glucose level in the last 2-3 month period. Performed By: #### 5 5454-3 #### [facility] CLIA [id number] [address] [place] [address] [place] HbA1c (Bld) [Mass fraction] 5.3 % Normal 4.3-5.6 [facility] Comment on above: Order Comment: Jaron duran Type: BLOOD SPECIMEN Ordering Facility: [facility] Address: [address] [place] [address] Result Comment: Amer [place] Diabetes Association guidelines indicate that patients with HgbA1c in the range 5.7-6.4% are at increased risk for development of diabetes, and intervention by lifestyle modification may be beneficial. HgbA1c greater or equal to 6.5% is considered diagnostic of diabetes. Performed By: #### 5 5454-3 #### [facility] CLIA [id number] [address] [place] [address] [place] Lipid 1996 panelon 5 Cholesterol [Mass/Vol] 211 mg/dL High <200 [facility] Comment on above: Order Comment: Jaron duran Type: BLOOD SPECIMEN Ordering Facility: [facility] Address: [address] [place] [address] Result Comment: <200 mg/dL, Desirable 200-239 mg/dL, Borderline high >239 mg/dL, High Performed By: #### 2 4331-1, 3015-07, 1987-09, #### [facility] CLIA [id number] [address] [place] [address] [place] Cholesterol in HDL [Mass/Vol] 116 mg/dL Normal >39 [facility] Comment on above: Order Comment: Speci men Type: BLOOD SPECIMEN Ordering Facility: [facility] Address: [address] [place] [address] Result Comment: 40-5 9 mg/dL, Acceptable >59 mg/dL, High: Negative risk factor for coronary heart disease <40 mg/dL, Low: Positive risk factor for coronary heart disease Performed By: #### 2 4331-1, 3015-07, 1987-09, #### [facility] CLIA [id number] [address] [place] [address] [place] Cholesterol in LDL [Mass/Vol] 84 mg/dL Normal <100 [facility] Comment on above: Order Comment: Speci men Type: BLOOD SPECIMEN Ordering Facility: [facility] Address: [address] [place] [address] Result Comment: <100 mg/dL, Optimal 100-129 mg/dL, Near optimal/above optimal 130-159 mg/dL, Borderline high 160-189 mg/dL, High >189 mg/dL, Very high Secondary prevention optimal LDL Cholesterol levels are recommended to be <70 mg/dL LDL cholesterol is calculated using the Conte-NIH equation. Performed By: #### 2 4331-1, 3015-07, 1987-09, #### [facility] CLIA [id number] [address] [place], [place] [id number] [place] Cholesterol in LDL/Cholesterol in HDL [Mass ratio] 0.72 {ratio} Normal <2.54 [facility] Comment on above: Order Comment: Josiahi men Type: BLOOD SPECIMEN Ordering Facility: [facility] Address: [address] [place] [address] Result Comment: Jennifer dexter: 1. National Cholesterol Education Program ATP III Guideline At-A-Glance Quick Desk Reference: National Heart, Lung, and Blood [place]. National Institutes of Health. 2001: NIH Publication No. 01-3305. 2. An International Atherosclerosis Society position paper: global recommendations for the management of dyslipidemia: executive summary, Atherosclerosis. 2014: 232(2):410-413. Performed By: #### 2 4331-1, 3015-07, 1987-09, #### [facility] CLIA [id number] [address] [place] [address] [place] Cholesterol in VLDL [Mass/Vol] 10 mg/dL Normal <30 [facility] Comment on above: Order Comment: Jaron duran Type: BLOOD SPECIMEN Ordering Facility: [facility] Address: [address] [place] [address] Performed By: #### 2 4331-1, 3015-07, 1987-09, #### [facility] CLIA [id number] [address] [place] [address] [place] Cholesterol non HDL [Mass/Vol] 95 mg/dL Normal <130 [facility] Comment on above: Order Comment: Jaron duran Type: BLOOD SPECIMEN Ordering Facility: [facility] Address: [address] [place] [address] Result Comment: <130 mg/dL, Optimal 130-159 mg/dL, Near optimal/above optimal 160-189 mg/dL, Borderline high 190-219 mg/dL, High >219 mg/dL, Very high Secondary prevention optimal non HDL Cholesterol levels are recommended to be <100 mg/dL Performed By: #### 2 4331-1, 3015-07, 1987-09, #### [facility] CLIA [id number] [address] [place] [address] [place] Cholesterol.total/Ch olesterol in HDL [Mass ratio] 1.82 {ratio} Normal <5.10 [facility] Comment on above: Order Comment: Jaron duran Type: BLOOD SPECIMEN Ordering Facility: [facility] Address: [address] [place] [id number] Performed By: #### 2 4331-1, 3015-07, 1987-09, #### [facility] CLIA [id number] [address] [place] [address] [place] FASTING TIME [address] [facility] Comment on above: Order Comment: Speci men Type: BLOOD SPECIMEN Ordering Facility: [facility] Address: [address] [place] [address] Performed By: #### 2 4331-1, 3015-07, 1987-09, #### [facility] CLIA [id number] [address] [place] [address] [place] Triglyceride [Mass/Vol] 64 mg/dL Normal <150 [facility] Comment on above: Order Comment: Speci men Type: BLOOD SPECIMEN Ordering Facility: [facility] Address: [address] [place] [address] Result Comment: <150 mg/dL, Normal 150-199 mg/dL, Borderline high 200-499 mg/dL, High >499 mg/dL, Very high Performed By: #### 2 4331-1, 3015-07, 1987-09, #### [facility] CLIA [id number] [address] [place], [place] [id number] [place] Magnesium SerPl-mCncon 02-19 Magnesium [Mass/Vol] 2.0 mg/dL Normal 1.7-2.3 [facility] Comment on above: Order Comment: Speci men Type: BLOOD SPECIMEN Ordering Facility: [facility] Address: [address] [place], [place] [id number] Performed By: #### 2 4331-1, 3015-07, 1987-09, #### [facility] CLIA [id number] [address] [place], [place] [id number] [place] TSH SerPl-aCncon 02-19-2025 TSH Qn 1.430 m[IU]/L Normal 0.270-4.200 [facility] Comment on above: Order Comment: Speci men Type: BLOOD SPECIMEN Ordering Facility: [facility] Address: [address] [place] [address] Performed By: #### 2 4331-1, 3015-07, 1987-09, #### [facility] CLIA [id number] [address] [place] [address] [place] Urinalysis complete panel (U )on 02-19-2025 Bacteria LM.HPF (Urine sed) [#/Area] Negative Normal Negative [facility] Comment on above: Order Comment: Speci men Type: BLOOD SPECIMEN Ordering Facility: [facility] Address: [address] [place] [address] Performed By: #### 2 4331-1, 3015-07, 1987-09, #### [facility] CLIA [id number] [address] [place] [address] [place] Bilirubin Ql (U) Negative Normal Negative [facility] Comment on above: Order Comment: Speci men Type: BLOOD SPECIMEN Ordering Facility: [facility] Address: [address] [place] [address] Performed By: #### 2 4331-1, 3015-07, 1987-09, #### [facility] CLIA [id number] [address] [place] [address] [place] Clarity (Unsp spec) Clear Normal Clear [facility] Comment on above: Order Comment: Speci men Type: BLOOD SPECIMEN Ordering Facility: [facility] Address: [address] [place] [address] Performed By: #### 2 4331-1, 3015-07, 1987-09, #### [facility] CLIA [id number] [address] [place], [place] [id number] [place] Color (U) Yellow Normal Yellow [facility] Comment on above: Order Comment: Speci men Type: BLOOD SPECIMEN Ordering Facility: [facility] Address: [address] [place], [place] [phone] Performed By: #### 2 4331-1, 3015-07, 1987-09, #### [facility] CLIA [id number] [address] [place] [address] [place] Epithelial cells LM.HPF (Urine sed) [#/Area] None Seen Normal [facility] Comment on above: Order Comment: Speci men Type: BLOOD SPECIMEN Ordering Facility: [facility] Address: [address] [place] [address] Performed By: #### 2 4331-1, 3015-07, 1987-09, #### [facility] CLIA [id number] [address] [place] [address] [place] Glucose Test strip (U) [Mass/Vol] Negative Normal Negative [facility] Comment on above: Order Comment: Speci men Type: BLOOD SPECIMEN Ordering Facility: [facility] Address: [address] [place], [place] [address] Performed By: #### 2 4331-1, 3015-07, 1987-09, #### [facility] CLIA [id number] [address] [place] [address] [place] Hemoglobin Ql (U) Negative Normal Negative [facility] Comment on above: Order Comment: Speci men Type: BLOOD SPECIMEN Ordering Facility: [facility] Address: [address] [place] [address] Performed By: #### 2 4331-1, 3015-07, 1987-09, #### [facility] CLIA [id number] [address] [place] [address] [place] Hyaline casts (Urine sed) [#/Area] 0 /[LPF] Normal 0 /LPF [facility] Comment on above: Order Comment: Speci men Type: BLOOD SPECIMEN Ordering Facility: [facility] Address: [address] [place], [place] [address] Performed By: #### 2 4331-1, 3015-07, 1987-09, #### [facility] CLIA [id number] [address] [place] [address] [place] Ketones Ql (U) Negative Normal Negative [facility] Comment on above: Order Comment: Speci men Type: BLOOD SPECIMEN Ordering Facility: [facility] Address: [address] [place] [address] Performed By: #### 2 4331-1, 3015-07, 1987-09, #### [facility] CLIA [id number] [address] [place] [address] [place] Leukocyte esterase Test strip Ql (U) Negative Normal Negative [facility] Comment on above: Order Comment: Speci men Type: BLOOD SPECIMEN Ordering Facility: [facility] Address: [address] [place] [address] Performed By: #### 2 4331-1, 3015-07, 1987-09, #### [facility] CLIA [id number] [address] [place] [address] [place] Nitrite Ql (U) Negative Normal Negative [facility] Comment on above: Order Comment: Speci men Type: BLOOD SPECIMEN Ordering Facility: [facility] Address: [address] [place], [place] [phone] Performed By: #### 2 4331-1, 3015-07, 1987-09, #### [facility] CLIA [id number] [address] [place] [address] [place] pH (U) 6.5 [pH] Normal 5.0-8.0 [facility] Comment on above: Order Comment: Speci men Type: BLOOD SPECIMEN Ordering Facility: [facility] Address: [address] [place] [address] Performed By: #### 2 4331-1, 3015-07, 1987-09, #### [facility] CLIA [id number] [address] [place] [address] [place] Protein (U) [Mass/Vol] Negative Normal Negative [facility] Comment on above: Order Comment: Speci men Type: BLOOD SPECIMEN Ordering Facility: [facility] Address: [address] [place] [address] Performed By: #### 2 4331-1, 3015-07, 1987-09, #### [facility] CLIA [id number] [address] [place] [address] [place] RBC LM.HPF (Urine sed) [#/Area] 0-2 /HPF Normal 0-2 /HPF [facility] Comment on above: Order Comment: Speci men Type: BLOOD SPECIMEN Ordering Facility: [facility] Address: [address] [place] [address] Performed By: #### 2 4331-1, 3015-07, 1987-09, #### [facility] CLIA [id number] [address] [place] [address] [place] Specific gravity (U) [Rel density] 1.016 Normal 1.005-1.030 [facility] Comment on above: Order Comment: Speci men Type: BLOOD SPECIMEN Ordering Facility: [facility] Address: [address] [place] [address] Performed By: #### 2 4331-1, 3015-07, 1987-09, #### [facility] CLIA [id number] [address] [place] [address] [place] Urobilinogen Ql (U) 0.2 EU/dL Normal 0.2-1.0 EU/dL [facility] Comment on above: Order Comment: Speci men Type: BLOOD SPECIMEN Ordering Facility: [facility] Address: [address] [place] [address] Performed By: #### 2 4331-1, 3015-07, 1987-09, #### [facility] CLIA [id number] [address] [place] [address] [place] WBC LM.HPF (Urine sed) [#/Area] 0-5 /HPF Normal 0-5 /HPF [facility] Comment on above: Order Comment: Speci men Type: BLOOD SPECIMEN Ordering Facility: [facility] Address: [address] [place] [address] Performed By: #### 2 4331-1, 3015-07, 1987-09, #### [facility] CLIA [id number] [address] [place] [address] [place] Vit B12 [facility] 10-06-2 025 Cobalamin (Vitamin B12) [Mass/Vol] 419 pg/mL Normal 232-1245 [facility] Comment on above: Order Comment: Speci men Type: BLOOD SPECIMEN Ordering Facility: [facility] Address: [address] [place] [address] Performed By: #### 2 4331-1, 3015-07, 1987-09, #### [facility] CLIA [id number] [address] [place] [address] [place] Comprehensive metabolic 2000 panelOrdered By: Lexi Bean on 10-24-2024 Albumin [Mass/Vol] 4.8 g/dL 3.9 - 4.9 g/dL [facility] ALP [Catalytic activity/Vol] 60 U/L 34 - 123 U/L [facility] ALT [Catalytic activity/Vol] 29 U/L 7 - 38 U/L [facility] Anion gap [Moles/Vol] 15 mmol/L 8 - 15 mmol/L [facility] AST [Catalytic activity/Vol] 25 U/L 13 - 35 U/L [facility] Bilirubin [Mass/Vol] 0.4 mg/dL 0.2 - 1 .3 mg/dL [facility] Calcium [Mass/Vol] 9.8 mg/dL 8.5 - 10. 2 mg/dL [facility] Chloride [Moles/Vol] 95 mmol/L Low 98 - 10 7 mmol/L [facility] CO2 [Moles/Vol] 22 mmol/L 22 - 30 mmol/L [facility] Creatinine [Mass/Vol] 0.68 mg/dL 0.58 - 0.96 mg/dL [facility] GFR/1.73 sq M.predicted among non-blacks MDRD (S/P/Bld) [Vol rate/Area] 89 mL/min/{1.73_m2} - PINF [facility] Comment on above: Estimated Glomerular Filtration Rate (eGFR) is calculated using the 2020 CKD-EPI creatinine equation. This equation utilizes serum creatinine, sex, and age as parameters. The creatinine assay has traceable calibration to isotope dilution-mass spectrometry. Refer to KDIGO guidelines for clinical interpretation. In patients with unstable renal function, e.g. those with acute kidney injury, the eGFR may not accurately reflect actual GFR. Glucose [Mass/Vol] 121 mg/dL High 74 - 99 mg/dL [facility] Comment on above: The [place] Diabete s Association (ADA) provides guidance for cutoff values for fasting glucose and random glucose. The ADA defines fasting as no caloric intake for at least 8 hours. Fasting plasma glucose results between 100 to 125 mg/dL indicate increased risk for diabetes (prediabetes). Fasting plasma glucose results greater than or equal to 126 mg/dL meet the criteria for diagnosis of diabetes. In the absence of unequivocal hyperglycemia, results should be confirmed by repeat testing. In a patient with classic symptoms of hyperglycemia or hyperglycemic crisis, random plasma glucose results greater than or equal to 200 mg/dL meet the criteria for diagnosis of diabetes. Reference: Standards of Medical Care in Diabetes 2016, [place] Diabetes Association. Diabetes Care. 2016.39(Suppl 1). Interpretation and review of laboratory results Abnormal [facility] Potassium [Moles/Vol] 4.7 mmol/L 3.7 - 5.1 mmol/L [facility] Protein [Mass/Vol] 7.4 g/dL 6.3 - 8.0 g/dL Cl [facility] Sodium [Moles/Vol] 132 mmol/L Low 136 - 144 mmol/L [facility] Urea nitrogen [Mass/Vol] 10 mg/dL 7 - 21 mg/dL [facility] Comprehensive metabolic 2000 panelon 10-24-2024 Albumin [Mass/Vol] 4.8 g/dL Normal 3.9-4.9 [facility] Comment on above: Order Comment: Speci men Type: BLOOD SPECIMEN Ordering Facility: [facility] Address: [address] [place] [address] Performed By: #### 2 4331-1, 3015-07, 1987-09, #### [facility] CLIA [id number] [address] [place] [address] [place] ALP [Catalytic activity/Vol] 60 U/L Normal 34-123 [facility] Comment on above: Order Comment: Speci men Type: BLOOD SPECIMEN Ordering Facility: [facility] Address: [address] [place] [address] Performed By: #### 2 4331-1, 3015-07, 1987-09, #### [facility] CLIA [id number] [address] [place] [address] [place] ALT [Catalytic activity/Vol] 29 U/L Normal 7-38 [facility] Comment on above: Order Comment: Speci men Type: BLOOD SPECIMEN Ordering Facility: [facility] Address: [address] [place] [address] Performed By: #### 2 4331-1, 3015-07, 1987-09, #### [facility] CLIA [id number] [address] [place] [address] [place] Anion gap [Moles/Vol] 15 mmol/L Normal 8-15 [facility] Comment on above: Order Comment: Speci men Type: BLOOD SPECIMEN Ordering Facility: [facility] Address: [address] [place] [address] Performed By: #### 2 4331-1, 3015-07, 1987-09, #### [facility] CLIA [id number] [address] [place], [place] [id number] [place] AST [Catalytic activity/Vol] 25 U/L Normal 13-35 [facility] Comment on above: Order Comment: Speci men Type: BLOOD SPECIMEN Ordering Facility: [facility] Address: [address] [place] [address] Performed By: #### 2 4331-1, 3015-07, #### [facility] CLIA [id number] [address] [place] [address] [place] Bilirubin [Mass/Vol] 0.4 mg/dL Normal 0.2-1.3 [facility] Comment on above: Order Comment: Speci men Type: BLOOD SPECIMEN Ordering Facility: [facility] Address: [address] [place] [address] Performed By: #### 2 4331-1, 3015-07, #### [facility] CLIA [id number] [address] [place] [address] [place] Calcium [Mass/Vol] 9.8 mg/dL Normal 8.5-10.2 [facility] Comment on above: Order Comment: Speci men Type: BLOOD SPECIMEN Ordering Facility: [facility] Address: [address] [place] [address] Performed By: #### 2 4331-1, 3015-07, #### [facility] CLIA [id number] [address] [place] [address] [place] Chloride [Moles/Vol] 95 mmol/L Low 98-107 [facility] Comment on above: Order Comment: Speci men Type: BLOOD SPECIMEN Ordering Facility: [facility] Address: [address] [place] [address] Performed By: #### 2 4331-1, 3015-07, #### [facility] CLIA [id number] [address] [place] [address] [place] CO2 [Moles/Vol] 22 mmol/L Normal 22-30 [facility] Comment on above: Order Comment: Speci men Type: BLOOD SPECIMEN Ordering Facility: [facility] Address: [address] [place] [address] Performed By: #### 2 4331-1, 3015-07, #### [facility] CLIA [id number] [address] [place] [address] [place] Creatinine [Mass/Vol] 0.68 mg/dL Normal 0.58-0.96 [facility] Comment on above: Order Comment: Speci men Type: BLOOD SPECIMEN Ordering Facility: [facility] Address: [address] [place] [address] Performed By: #### 2 4331-1, 3015-07, #### [facility] CLIA [id number] [address] [place] [address] [place] Creatinine and Glomerular filtration rate.predicted panel (S/P/Bld) 89 mL/min/1.73m??? Normal >=60 [facility] Comment on above: Order Comment: Speci men Type: BLOOD SPECIMEN Ordering Facility: [facility] Address: [address] [place] [address] Result Comment: Jessica mated Glomerular Filtration Rate (eGFR) is calculated using the 2020 CKD-EPI creatinine equation. This equation utilizes serum creatinine, sex, and age as parameters. The creatinine assay has traceable calibration to isotope dilution-mass spectrometry. Refer to KDIGO guidelines for clinical interpretation. In patients with unstable renal function, e.g. those with acute kidney injury, the eGFR may not accurately reflect actual GFR. Performed By: #### 2 4331-1, 3015-07, #### [facility] CLIA [id number] [address] [place], [place] [id number] [place] Glucose [Mass/Vol] 121 mg/dL High 74-99 [facility] Comment on above: Order Comment: Speci men Type: BLOOD SPECIMEN Ordering Facility: [facility] Address: [address] [place] [address] Result Comment: The [place] Diabetes Association (ADA) provides guidance for cutoff values for fasting glucose and random glucose. The ADA defines fasting as no caloric intake for at least 8 hours. Fasting plasma glucose results between 100 to 125 mg/dL indicate increased risk for diabetes (prediabetes). Fasting plasma glucose results greater than or equal to 126 mg/dL meet the criteria for diagnosis of diabetes. In the absence of unequivocal hyperglycemia, results should be confirmed by repeat testing. In a patient with classic symptoms of hyperglycemia or hyperglycemic crisis, random plasma glucose results greater than or equal to 200 mg/dL meet the criteria for diagnosis of diabetes. Reference: Standards of Medical Care in Diabetes 2016, [place] Diabetes Association. Diabetes Care. 2016.39(Suppl 1). Performed By: #### 2 4331-1, 3015-07, #### [facility] CLIA [id number] [address] [place] [address] [place] Potassium [Moles/Vol] 4.7 mmol/L Normal 3.7-5.1 [facility] Comment on above: Order Comment: Speci men Type: BLOOD SPECIMEN Ordering Facility: [facility] Address: [address] [place] [address] Performed By: #### 2 4331-, 3015-07, #### [facility] CLIA [id number] [address] [place] [address] [place] Protein [Mass/Vol] 7.4 g/dL Normal 6.3-8.0 [facility] Comment on above: Order Comment: Speci men Type: BLOOD SPECIMEN Ordering Facility: [facility] Address: [address] [place], [place] [id number] Performed By: #### 2 4331-, 3015-07, #### [facility] CLIA [id number] [address] [place], [place] [id number] [place] Sodium [Moles/Vol] 132 mmol/L Low 136-144 [facility] Comment on above: Order Comment: Speci men Type: BLOOD SPECIMEN Ordering Facility: [facility] Address: [address] [place] [address] Performed By: #### 2 4331-1, 3015-07, 1987-09, #### [facility] CLIA [id number] [address] [place] [address] [place] Urea nitrogen [Mass/Vol] 10 mg/dL Normal 7-21 [facility] Comment on above: Order Comment: Speci men Type: BLOOD SPECIMEN Ordering Facility: [facility] Address: [address] [place] [address] Performed By: #### 2 4331-1, 3015-07, 1987-09, #### [facility] CLIA [id number] [address] [place] [address] [place] CNPNon 10-17-2024 [facility] ELADIA TIRADO ([id number]) 1945 F Date Time Provider Department 10/17/24 ANDRE DAWSON During your visit today, we recorded the following information about you: Kym Molina 10/17/2024 2:21 PM Signed Patient called stating she needs to schedule her annual reclast. Please review order and advise. Thank you. Kym Molina 10/18/2024 8:45 AM Signed Scheduled with patient Start email sent Allergies As of Date: 10/17/2024 (No Known Allergies) Date Reviewed: 02/15/2024 Reviewed by: Giovana Mujica MA - Fully Assessed Reason for Visit: Appointment [186] Prescriptions as of 10/18/2024 - losartan (COZAAR) 50 mg tablet Take 1 tablet by mouth once daily. - atorvastatin (LIPITOR) 20 mg tablet Take 1 tablet by mouth daily at bedtime. For cholesterol. - zoledronic acid (RECLAST) 5 mg/100 mL PREMIX piggyback Inject 100 mL intravenously every year. Patient should start on October 23, 2024. - calcium phosphate trib/vit D3 (CITRACAL + D3, CALCIUM PHOS, ORAL) Take 2 tablets by mouth once daily. - cholecalciferol, vitamin D3, (VITAMIN D3 ORAL) Take 2 tablets by mouth once daily. - MEDICATION, NON-DATABASE Aloe Gel - MEDICATION, NON-DATABASE Take by mouth once daily. Turmeric - omega-3 fatty acids(FISH OIL 500 MG CAP) Take one(1) capsule daily. - MULTIVITAMIN TAB Take one(1) tablet daily. Problem List As Of Date 10/17/2024 Noted Resolved BONE AND CARTILAGE DIS NOS [M89.9, M94.9] Hyperlipidemia, mixed [E78.2] HEMORRHOIDS NOS [K64.9] Internal hemorrhoids without mention of complic*10/29/2011 Family history of malignant neoplasm of gastroi*10/29/2011 Esophagitis, unspecified [K20.90] 10/29/2011 Dyslipidemia [E78.5] 11/16/2018 Medicare annual wellness visit, subsequent [Z00*11/16/2018 Osteopenia, senile [M85.80] 11/21/2019 Neck pain [M54.2] 01/25/2021 Hyperglycemia [R73.9] 01/25/2021 Spinal osteoarthritis [M47.9] 01/25/2021 Closed fracture of proximal end of right humeru*01/26/2022 Encounter Status:Closed by KYM MOLINA on 10/18/[address] [facility] BD DXA - AXIAL SKELETONon BD DXA - AXIAL SKELETON * * *Final Report* * * DATE OF EXAM: Sep 22 2024 10:12AM STEVE 0804 - BD DXA - AXIAL SKELETON / PROCEDURE REASON: Screening for osteoporosis * * * * Physician Interpretation * * * * EXAMINATION: DXA BONE DENSITOMETRY BD DXA - AXIAL SKELETON PATIENT DEMOGRAPHICS: Age: 79 years, Gender: Female SCANNER INFORMATION: DXA Model: [employer] - Primedic C 10142 Date Scanned: 09/22/2024 10:12 AM CLINICAL HISTORY: DIAGNOSTIC Screening for osteoporosis . RISK FACTORS FOR OSTEOPOROSIS AND ASSOCIATED FRACTURES REPORTED BY THIS PATIENT: Please refer to Bone Health Questionnaire in the EMR CURRENT THERAPY: Please refer to Bone Health Questionnaire in the EMR TECHNICAL LIMITATIONS: None RESULTS: Lumbar spine (L1, L2, L3, L4): 0.823 g/cm2, T-score -2.0, Z-score 0.6 Lumbar spine: 2021: 0.785 g/cm2 Statistically significant increase Right Femoral Neck: 0.562 g/cm2, T-score -2.6, Z-score -0.3 Right Femoral Neck: 2021: 0.541 g/cm2 No statistically significant change Right Total Hip: 0.691 g/cm2, T-score -2.1, Z-score 0.0 Right Total Hip: 2021: 0.686 g/cm2 No statistically significant change Left Femoral Neck: 0.534 g/cm2, T-score -2.8, Z-score -0.6 Left Femoral Neck: 2021: 0.573 g/cm2 Statistically significant decrease Left Total Hip: 0.716 g/cm2, T-score -1.9, Z-score 0.2 Left Total Hip: 2021: 0.724 g/cm2 No statistically significant change CHANGE IS STATISTICALLY SIGNIFICANT IN THE SPINE OR HIP IF GREATER THAN OR EQUAL TO 0.04 g/cm2 VERTEBRAL FRACTURE ASSESSMENT Not performed. IMPRESSION: THE LOWEST T-SCORE IS -2.8 IN THE LEFT HIP 1) DIAGNOSIS (based on BMD alone): OSTEOPOROSIS Caution: Medical conditions other than osteoporosis may cause low bone density, such as osteomalacia or renal osteodystrophy. Clinical correlation is necessary. 2) FRACTURE RISK (based on FRAX): 10-year absolute fracture risk: - major osteoporotic fracture = 27 % - hip fracture = 9.8 % - A diagnosis of Osteoporosis, a 10 year probability of hip fracture greater than or equal to 3% or a 10 year probability of any major osteoporosis-related fracture greater than or equal to 20% should be considered for treatment. - DXA scanner generated FRAX calculations may slightly differ from online FRAX calculations due to differences in software versions. - All recommendations and calculations are to be considered as guidelines and should not replace sound clinical judgement - Caution: Fracture risk may be increased independent of BMD in patients with corticosteroid use, age greater than 65 years, or a history of prior fragility fracture. RECOMMENDATIONS: Follow-up in 2 years or as clinically indicated. Patients that are taking corticosteroids, are transplant recipients or have hyperparathyroidism should have annual follow-up. Follow-up scans should always be done on the same machine for accurate comparison. FOR MORE INFORMATION ABOUT DIAGNOSIS AND TREATMENT: [facility]osis [facility] Metabolic Bone Disease:? www.ccf.org/arthritis/ osteo National Osteoporosis Foundation:? www.nof.org International Society of Clinical Densitometry www.iscd.org Test Grader: DOMINIC Transcribe Date/Time: Sep 25 2024 5:38A Dictated by : LISA HERNANDEZ MD This examination was interpreted and the report reviewed and electronically signed by: LISA HERNANDEZ MD on Sep 25 2024 8:49AM EST [id number] -2.[address] [facility] BARBIE SCREENING W TOMOon 05-03 BARBIE SCREENING W NA * * *Final Report* * * DATE OF EXAM: May 03 2024 2:48PM [facility] 0582 - BARBIE SCREENING W NA / PROCEDURE REASON: Encounter for screening mammogram for malignant neoplasm of breast * * * * Physician Interpretation * * * * RESULT: [place] [address] #[id number] - BARBIE SCREENING W NA HISTORY: Patient is 78 years old and is seen for screening. No current complaints. COMPARISON STUDIES: The present examination has been compared to prior imaging studies dated 12/12/2018 (mammogram), 02/12/2020 (mammogram), 02/13/2021 (mammogram) and 04/13/2022 (mammogram). MAMMOGRAM TECHNIQUE: The study was acquired using full field digital technology and interpreted from soft copy. Digital Breast Tomosynthesis (DBT) images were obtained and used to assist in the interpretation of this examination. Computer-aided detection was utilized by the radiologist in the interpretation of this examination. MAMMOGRAM FINDINGS: The breasts are heterogeneously dense, which may obscure small masses. No suspicious masses, calcifications or other abnormalities are seen in either breast. There are no significant interval changes. IMPRESSION: There is no mammographic evidence of malignancy in either breast. Routine screening mammogram is recommended. Annual mammogram will be due in 1 year. BI-RADS Category 1: Negative RISK: Based on the Tyrer-Cuzick (TC) risk assessment model, this patient has a 4.1% lifetime risk of developing breast cancer, meaning they are at average risk for developing breast cancer. However, this is only an estimate based on available history provided on the patient's questionnaire. We encourage all patients to talk with their providers about these results, further recommendations for managing breast health, and appropriate supplemental screening options if the patient has dense breast tissue. Interpreting Radiologist: Farhana Murguia M.D. Electronically signed on: 05/04/2024 Test Grader: CAYETANO Transcribe Date/Time: May 03 2024 2:21P Dictated by: FARHANA MURGUIA MD This examination was interpreted and the report reviewed and electronically signed by: FARHANA MURGUIA MD on May 04 2024 12:59PM EST [id number] Normal [facility] 03-27-2024 CNPN Telephone (FAMPWS) ELADIA TIRADO ([id number]) 1945 F Date Time Provider Department 03/27/24 [facility] During your visit today, we recorded the following information about you: Oriana Murrell MA 03/27/2024 10:32 AM Signed Pt sends AppEnsure messages below I need to schedule a bone density screening. It will have to be after April 26, 2024 and before May 16, 2024. Abilio Mcbride DO 03/27/2024 4:53 PM Signed Order placed to schedule DO Handy Villagran Kathryn, MA 03/27/2024 5:34 PM Signed Pt notified via AppEnsure, told she could call in and schedule. Oriana Murrell MA Allergies As of Date: 03/27/2024 (No Known Allergies) Date Reviewed: 02/15/2024 Reviewed by: Giovana Mujica MA - Fully Assessed Reason for Visit: Orders [681] Primary Visit Diagnosis:Screening for osteoporosis [Z13.820] Order(s):DXA-AXIAL SKELETON [[id number]] Order #: [id number] FUTURE Prescriptions as of 03/27/2024 - atorvastatin (LIPITOR) 20 mg tablet Take 1 tablet by mouth daily at bedtime. For cholesterol. - losartan (COZAAR) 50 mg tablet Take 1 tablet by mouth once daily. - zoledronic acid (RECLAST) 5 mg/100 mL PREMIX piggyback Inject 100 mL intravenously every year. Patient should start on October 23, 2024. - calcium phosphate trib/vit D3 (CITRACAL + D3, CALCIUM PHOS, ORAL) Take 2 tablets by mouth once daily. - cholecalciferol, vitamin D3, (VITAMIN D3 ORAL) Take 2 tablets by mouth once daily. - MEDICATION, NON-DATABASE Aloe Gel - MEDICATION, NON-DATABASE Take by mouth once daily. Turmeric - omega-3 fatty acids(FISH OIL 500 MG CAP) Take one(1) capsule daily. - MULTIVITAMIN TAB Take one(1) tablet daily. Problem List As Of Date 03/27/2024 Noted Resolved BONE AND CARTILAGE DIS NOS [M89.9, M94.9] Hyperlipidemia, mixed [E78.2] HEMORRHOIDS NOS [K64.9] Internal hemorrhoids without mention of complic*10/29/2011 Family history of malignant neoplasm of gastroi*10/29/2011 Esophagitis, unspecified [K20.90] 10/29/2011 Dyslipidemia [E78.5] 11/16/2018 Medicare annual wellness visit, subsequent [Z00*11/16/2018 Osteopenia, senile [M85.80] 11/21/2019 Neck pain [M54.2] 01/25/2021 Hyperglycemia [R73.9] 01/25/2021 Spinal osteoarthritis [M47.9] 01/25/2021 Closed fracture of proximal end of right humeru*01/26/2022 Encounter Status:Closed by ORIANA MURRELL on 03/27/[address] [facility] 25-hydroxyvitamin D3 [Mass/V ol]on 02-15-2024 Interpretation and review of laboratory results Normal [facility] The reference range interval was based on an analysis of samples from healthy adults and may not pertain to children from 0-18 years old. [facility] CBC panel Auto (Bld)on 02-14 Erythrocyte distribution width (RBC) [Ratio] 12.7 % 11.5 - 15.0 % [facility] Hematocrit (Bld) [Volume fraction] 42.2 % 36.0 - 46.0 % [facility] Hemoglobin (Bld) [Mass/Vol] 13.8 g/dL 11.5 - 15.5 g/dL [facility] Interpretation and review of laboratory results Normal [facility] MCH (RBC) [Entitic mass] 30.7 pg 26.0 - 34.0 pg [facility] MCHC (RBC) [Mass/Vol] 32.7 g/dL 30.5 - 36.0 g/dL [facility] MCV (RBC) [Entitic vol] 94.0 fL 80.0 - 100.0 fL [facility] Nucleated RBC (Bld) [#/Vol] NINF [facility] Platelet mean volume (Bld) [Entitic vol] 10.1 fL 9.0 - 12.7 fL [facility] Platelets (Bld) [#/Vol] 302 10*3/uL [facility] RBC (Bld) [#/Vol] 4.49 10*6/uL 3.90 - 5.2 0 m/uL [facility] WBC (Bld) [#/Vol] 4.98 10*3/uL [facility] Comprehensive metabolic 2000 panelon 02-15-2024 Albumin [Mass/Vol] 4.5 g/dL 3.9 - 4.9 g/dL Cl [facility] ALP [Catalytic activity/Vol] 50 U/L 34 - 123 U/L [facility] ALT [Catalytic activity/Vol] 26 U/L 7 - 38 U/L [facility] Anion gap [Moles/Vol] 13 mmol/L 8 - 15 mmol/L [facility] AST [Catalytic activity/Vol] 27 U/L 13 - 35 U/L [facility] Bilirubin [Mass/Vol] 0.6 mg/dL 0.2 - 1 .3 mg/dL [facility] Calcium [Mass/Vol] 9.5 mg/dL 8.5 - 10. 2 mg/dL [facility] Chloride [Moles/Vol] 97 mmol/L Low 98 - 10 7 mmol/L [facility] CO2 [Moles/Vol] 25 mmol/L 22 - 30 mmol/L [facility] Creatinine [Mass/Vol] 0.72 mg/dL 0.58 - 0.96 mg/dL [facility] GFR/1.73 sq M.predicted among non-blacks MDRD (S/P/Bld) [Vol rate/Area] 86 mL/min/{1.73_m2} - PINF [facility] Comment on above: Estimated Glomerular Filtration Rate (eGFR) is calculated using the 2020 CKD-EPI creatinine equation. This equation utilizes serum creatinine, sex, and age as parameters. The creatinine assay has traceable calibration to isotope dilution-mass spectrometry. Refer to KDIGO guidelines for clinical interpretation. In patients with unstable renal function, e.g. those with acute kidney injury, the eGFR may not accurately reflect actual GFR. Glucose [Mass/Vol] 106 mg/dL High 74 - 99 mg/dL [facility] Comment on above: The [place] Diabete s Association (ADA) provides guidance for cutoff values for fasting glucose and random glucose. The ADA defines fasting as no caloric intake for at least 8 hours. Fasting plasma glucose results between 100 to 125 mg/dL indicate increased risk for diabetes (prediabetes). Fasting plasma glucose results greater than or equal to 126 mg/dL meet the criteria for diagnosis of diabetes. In the absence of unequivocal hyperglycemia, results should be confirmed by repeat testing. In a patient with classic symptoms of hyperglycemia or hyperglycemic crisis, random plasma glucose results greater than or equal to 200 mg/dL meet the criteria for diagnosis of diabetes. Reference: Standards of Medical Care in Diabetes 2016, [place] [employer]. Diabetes Care. 2016.39(Suppl 1). Potassium [Moles/Vol] 4.6 mmol/L 3.7 - 5.1 mmol/L [facility] Protein [Mass/Vol] 7.5 g/dL 6.3 - 8.0 g/dL Cl [facility] Sodium [Moles/Vol] 135 mmol/L Low 136 - 144 mmol/L [facility] Urea nitrogen [Mass/Vol] 10 mg/dL 7 - 21 mg/dL [facility] HbA1c (Bld)on 02-15-2024 Average glucose Estimated from glycated hemoglobin (Bld) [Mass/Vol] 108 mg/dL [facility] Comment on above: eAG: (Estimated aver age glucose) is a calculated value from HgbA1c and is surgical device sales representative of the average blood glucose level in the last 2-3 month period. HbA1c (Bld) [Mass fraction] 5.4 % 4.3 - 5.6 % [facility] Comment on above: [place] [employer] As sociation guidelines indicate that patients with HgbA1c in the range 5.7-6.4% are at increased risk for development of diabetes, and intervention by lifestyle modification may be beneficial. HgbA1c greater or equal to 6.5% is considered diagnostic of diabetes. [facility] Lipid 1996 panelon 4 Cholesterol [Mass/Vol] 204 mg/dL High NINF - 200 mg/dL [facility] Comment on above: <200 mg/dL, Desirabl e 200-239 mg/dL, Borderline high >239 mg/dL, High Cholesterol in HDL [Mass/Vol] 105 mg/dL 39 - PINF mg/dL [facility] Comment on above: 40-59 mg/dL, Accepta ble >59 mg/dL, High: Negative risk factor for coronary heart disease <40 mg/dL, Low: Positive risk factor for coronary heart disease Cholesterol in LDL [Mass/Vol] 89 mg/dL NINF - 100 mg/dL [facility] Comment on above: <100 mg/dL, Optimal 100-129 mg/dL, Near optimal/above optimal 130-159 mg/dL, Borderline high 160-189 mg/dL, High >189 mg/dL, Very high Secondary prevention optimal LDL Cholesterol levels are recommended to be < 70 mg/dL Cholesterol in LDL/Cholesterol in HDL [Mass ratio] 0.85 {ratio} NINF - 2.54 [facility] Comment on above: Reference: 1. National Cholesterol Education Program ATP III Guideline At-A-Glance Quick Desk Reference: National Heart, Lung, and Blood [place]. National Institutes of Health. 2001: NIH Publication No. 01-3305. 2. An International Atherosclerosis Society position paper: global recommendations for the management of dyslipidemia: executive summary, Atherosclerosis. 2014: 232(2):410-413. Cholesterol in VLDL [Mass/Vol] 10 mg/dL NINF - 30 mg/dL [facility] Cholesterol non HDL [Mass/Vol] 99 mg/dL NINF - 130 mg/dL [facility] Comment on above: <130 mg/dL, Optimal 130-159 mg/dL, Near optimal/above optimal 160-189 mg/dL, Borderline high 190-219 mg/dL, High >219 mg/dL, Very high Secondary prevention optimal non HDL Cholesterol levels are recommended to be <100 mg/dL Cholesterol.total/Ch olesterol in HDL [Mass ratio] 1.94 {ratio} NINF - 5.10 [facility] Fasting Time 12 hrs [facility] Triglyceride [Mass/Vol] 52 mg/dL NINF - 150 mg/dL [facility] Comment on above: <150 mg/dL, Normal 150-199 mg/dL, Borderline high 200-499 mg/dL, High >499 mg/dL, Very high No Panel Informationon 02-14 Interpretation and review of laboratory results Abnormal [facility] THYROID STIMULATING HORMONEo n 02-15-2024 TSH Qn 1.340 m[IU]/L [facility] TSH Qnon 02-15-2024 Interpretation and review of laboratory results Normal [facility] VITAMIN D 25 HYDROXYon 02-14 25-hydroxyvitamin D3 [Mass/Vol] 53.5 ng/mL 31.0 - 80.0 ng/mL [facility] Comment on above: Classification of 25 [place] Vitamin D status: Deficiency/Insufficiency: < or = 30 ng/ml. Sufficiency/Optimal Levels: 31-80 ng/mL Toxicity: > 100 ng/mL. Test performed by chemiluminescent immunoassay. SURGICAL PATHOLOGYon 023 Case Report Surgical Pathology Report Case: [id number] Authorizing Provider: Scar Astudillo MD Collected: 06/16/2022 12:42 PM Ordering Location: Ambulatory Surgery Received: 06/16/2022 03:28 PM Pathologist: Saman Jain MD Specimens: A) - ANTRUM (STOMACH) BIOPSY, antral bx for H/H B) - ESOPHAGUS MID BIOPSY C) - ESOPHAGUS BIOPSY, Distal esophagus bx [facility] FINAL DIAGNOSIS A. Stomach, biopsy: - Gastric mucosa with no significant pathologic abnormality. B. Mid esophagus, biopsy: - Squamous mucosa with no significant pathologic abnormality. C. Distal esophagus, biopsy: - Squamous mucosa with no significant pathologic abnormality. [facility] Gross Description A. ANTRUM (STOMACH) BIOPSY Received in formalin is one piece of clarke, soft tissue measuring 0.4 x 0.3 x 0.2 cm. Totally submitted in one cassette. B. ESOPHAGUS MID BIOPSY Received in formalin are two pieces of clarke, soft tissue aggregating to 0.4 x 0.2 x 0.2 cm. Totally submitted in one cassette. C. ESOPHAGUS BIOPSY Received in formalin is one piece of clarke, soft tissue measuring 0.5 x 0.2 x 0.2 cm. Totally submitted in one cassette. EJL 2022 11:58 AM Gross examination performed at [facility], [facility] Performing Lab Diagnostic interpretation performed at [facility], [address] [address] CLIA# [id number] Chain Person: Raleigh Wells M.D. [facility] COLONOSCOPY SCREENINGon 05-19 [facility] EGD DIAGNOSTICon 06-16-2022 [facility] Calcium.ionized [Moles/Vol]o n 05-21-2022 Calcium.ionized (Bld) [Mass/Vol] 1.29 mmol/L 1.08 - 1.30 mmol/L [facility] Calcium.ionized adjusted to pH 7.4 (Bld) [Moles/Vol] 1.24 mmol/L 1.08 - 1.30 mmol/L [facility] PTH INTACT BLDon 05-21-2022 Parathyrin.intact [Mass/Vol] 28 pg/mL 15 - 65 pg/mL [facility] VITAMIN D 25 HYDROXYon 05-21 25-hydroxyvitamin D3 [Mass/Vol] 52.2 ng/mL 31.0 - 80.0 ng/mL [facility] Upper Ext No Joint W/WO Cont on 04-23-2022 Upper Ext No Joint W/WO Cont [facility] Imaging Services [address] [place] [address] Upper Ext No Joint W/WO Cont MR#: [id number] Acct: [id number] Name: CELESTINOELADIA HERRERA Rep #: [id number] : 1945 F 76 From: Saul Tucker MD PCP: Dr. Abilio Mcbride DO Status: REG CLI Study: Upper Ext No Joint W/WO Cont Date of Exam: Exam# [id number] Ordering Dr: Colt Driscoll MD EXAM: MR LEFT UPPER EXTREMITY WITHOUT AND WITH INTRAVENOUS CONTRAST, FOREARM CLINICAL INDICATION: SOFT TISSUE MASS L /FOREARM AREA MARKED WITH BEAD, NO PAIN TECHNIQUE: Multiplanar and multisequence MR images of the left forearm without and with intravenous contrast. This report was created using [employer] report [employer] technology. CONTRAST: 10 CC IV CLARISCAN COMPARISON: None. FINDINGS: MRI marker shows no underlying soft tissue or osseous abnormalities. BONES/JOINTS: Unremarkable. No fracture. No abnormal bone marrow signal. No joint effusion. MUSCLES: Unremarkable. No edema or myositis. OTHER SOFT TISSUES: Unremarkable. No solid or cystic mass. MRI/Upper Ext No Joint W/WO Cont IMPRESSION: Unremarkable MRI of the left forearm. Electronically Signed: Saul Tucker MD at 19:14 EST , CC: Dr. Abilio Mcbride DO; Dr. Colt Driscoll MD Test Grader: Signed Normal [facility] No Panel Informationon 04-20 Estimated GFR (MDRD) Amer 87 mL/min >60 [facility] Work Phone: Comment on above: GFR Calc Estimated GFR (MDRD) Non-Af Amer 72 mL/min >60 [facility] Work Phone: Comment on above: Non- GFR Calc Serum Creatinine AND GFRon 1 06-21-2021 Creatinine [Mass/Vol] 0.82 mg/dL Normal 0.55-1.02 [facility] Comment on above: Result Comment: The validity of the calculated GFR GFRAA in patients over 70 years has not been determined. Clinical correlation is essential. Performed By: #### L 501.1105 #### [facility] [address] [place], [place], [id number] EST GFR - AA 87 mL/min Normal >60 [facility] Comment on above: Result Comment: Afri can [place] GFR Calc Performed By: #### L 501.1105 #### [facility] [address] [place], [place], [id number] GFR/1.73 sq M.predicted among non-blacks MDRD (S/P/Bld) [Vol rate/Area] 72 mL/min/{1.73_m2} Normal >60 [facility] Comment on above: Result Comment: Non- GFR Calc Performed By: #### L 501.1105 #### [facility] [address] [place], [place], [id number] Serum or plasma creatinine m easurement (mass/volume)on 04-20-2022 Creatinine [Mass/Vol] 0.82 mg/dL 0.55-1.02 [facility] Work Phone: Comment on above: The validity of the calculated GFR & GFRAA in patients over 70 years has not been determined. Clinical correlation is essential. DXA-AXIAL SKELETONon [facility] BARBIE SCREENING W TOMOon 04-13 [facility] Emergency Department Summary on 11-30-2021 Emergency Department Summary [facility] Medical Records Department [address] [place] [address] Emergency Department Summary 11/30/21 MR#: [id number] Acct: [id number] Name: ELADIA TIRADO Rep #: [id number] : 1945 76 From: Chandrakant Bernal MD PCP: Dr. Abilio Mcbride, DO Status:DEP ER Location: ED HPI History of Present Illness HPI Narrative: Tripped and fell in her home landing on the hardwood floor striking her right forehead and right shoulder. Chief Complaint: Upper Extremity Injury Informant: patient Occured/Mechanism Mechanism/Context: Yes injury and Yes blunt trauma Onset/Context/Timing Onset: Today and Hours Context: Sudden Onset Timing: Continuous Current Severity: Moderate Maximum Severity: Moderate Associated Symptoms Associated Symptoms: Negative for Parasthesia, Weakness or Loss of Funtion Narrative Narrative: 76-year-old female history of high cholesterol. She was coming in for about side will begin rain today. She was carrying a pillow wearing flip-flops. She tripped fell striking her right forehead and right shoulder on the hardwood floor. No LOC. She is on no blood thinners not even aspirin. Denies any neck pain. Denies any vomiting. Complaining of right shoulder pain. She is right-hand dominant. Prior similar symptoms: No Recent Illness/Hospitalizatio n: No PFSH PFSH Medical History Arthritis High cholesterol Home Medications atorvastatin 10 mg tablet 10 mg PO QHS 09/10/15 [History Last Taken Unknown] calcium carbonate 600 mg-vitamin D3 20 mcg (800 unit) tablet 1 ea PO BID 09/10/15 [History Last Taken Unknown] fish oil-dha-epa 1,200 mg-144 mg-216 mg capsule 1 ea PO BID 09/10/15 [History Last Taken Unknown] ibuprofen 200 mg tablet (Motrin IB) 400 mg PO PRN PRN Pain 09/10/15 [History Last Taken Unknown] multivit with zeobbjyt-myyi-NL-lutei n 8 mg iron-400 mcg-300 mcg tablet (Centrum Silver Women) 1 ea PO DAILY 09/10/15 [History Last Taken Unknown] omeprazole 20 mg capsule,delayed release 20 mg PO QHS PRN Indigestion 09/10/15 [History Last Taken Unknown] aspirin 325 mg tablet 325 mg PO BID ##60 09/12/15 [Rx Last Taken Unknown] cephalexin 500 mg capsule (Keflex) 500 mg PO 4X/DAY ##4 09/12/15 [Rx Last Taken Unknown] docusate sodium 100 mg capsule (DOK) 100 mg PO BID ##20 09/12/15 [Rx Last Taken Unknown] hydrocodone-acetaminop hen 5-325mg 5mg-325mg 1 - 2 tab PO Q4H PRN PRN Pain ##60 09/12/15 [Rx Last Taken Unknown] ondansetron 4 mg disintegrating tablet 4 mg PO Q6H PRN PRN Nausea ##20 09/12/15 [Rx Last Taken Unknown] Allergy/AdvReac Type Severity Reaction Status Date / Time No Known Allergies Allergy Verified 11/30/21 19:26 Social History Smoking Status: Never smoker ROS ROS ED ROS Narrative Denies recent illness. Review of Systems ROS Unobtainable: Denies due to encephalopathy Constitutional Constitutional ED: Denies chills Eyes Eyes: Denies blurry vision ENT ENT ED: Denies ear pain Cardiovascular Cardiovascular: Denies chest pain Respiratory/Chest Respiratory/Chest: Denies cough Gastrointestinal Gastrointestinal: Denies abdominal pain Genitourinary Genitourinary ED: Denies dysuria Musculoskeletal Musculoskeletal: Denies back pain Neurologic Neurologic: Denies headache(s) Psychiatric Psychiatric: Denies anxiety Endocrine Endocrinology: Denies cold intolerance Hematologic/Lymphatic Hematologic/Lymphatic: Denies easy bleeding Allergic/Immunologic Allergic/Immunologic ED: Denies mouth swelling EXAM Physical Exam Narrative Exam Narrative: Well-appearing 76-year-old female. Looks younger than stated age. Vital signs stable afebrile. H EENT exam give dry reactive light. She has a contusion to her right for about the size of a quarter. No other facial or scalp trauma C-spine nontender trachea midline. Lungs are clear. Heart regular rhythm no murmur. Chest wall nontender. Abdomen soft nontender. Pelvic girdle intact. Left upper both lower extremities are nontender normal range of motion. Normal strength. Right shoulder pain on palpation. Limited AB and adduction due to pain. Distal humerus, elbow, right forearm wrist and hand are nontender neurovascular intact with normal voice engineer strength. Back and spine nontender. Neurologically she is awake and alert with no focal motor deficits. GCS of 15. Const Vital Signs: 11/30/21 19:23 11/30/21 19:34 Temperature 98.0 F Temperature Source Temporal Pulse Rate 71 Respiratory Rate 16 Respiratory Effort Normal Non-Labored Respiratory Depth Normal Respiratory Pattern Normal Blood Pressure 152/99 H Blood Pressure Mean 116 Pulse Ox 98 Oxygen Delivery Method Room Air Room Air Positive well nourished and well developed; Negative for obes (more content not included)... Normal [facility] Shoulder min 2 Viewson 11-30 Shoulder min 2 Views [facility] Imaging Services [address] [place] [address] Shoulder min 2 Views MR#: [id number] Acct: [id number] Name: ELADIA TIRADO Rep #: [id number] : 1945 F 76 From: Nichole Holland DO PCP: Dr. Abilio Mcbride DO Status: REG ER Study: Shoulder min 2 Views Date of Exam: 11/30/21 Exam# [id number] Ordering Dr: Chandrakant Bernal MD INDICATION: fall EXAMINATION/TECHNIQUE: X-RAY - RIGHT XR Shoulder Min 2 Views 2 VIEWS COMPARISON: None. FINDINGS: SOFT TISSUES: No soft tissue swelling or gas. No radiopaque foreign body. BONES/JOINTS: Avulsion fracture without displacement involving the greater tuberosity. No other fracture exemplified. Normal glenohumeral and acromioclavicular joint spacing and alignment. Preservation of the joint space and no degenerative bony proliferative changes. No sclerotic or destructive changes observed. Nodule in the periphery of the right lower lobe, 4 mm. Correlation with prior chest imaging recommended. RAD/Shoulder min 2 Views IMPRESSION: Motion fracture right greater tuberosity. Electronically Signed: Nichole Holland DO at 20:32 EDT , CC: Dr. Chandrakant Bernal MD; Dr. Abilio Mcbride DO Test Grader: Signed Normal [facility] XR Cervical spine AP and Lat eral and obliqueon 01-24-2021 IMPRESSION: Spondylosis of cervical spine. No acute osseous abnormality identified. Test Grader: PSCB Transcribe Date/Time: Jan 24 2021 2:47P Dictated by : JOCELYN VÁSQUEZ MD This examination was interpreted and the report reviewed and electronically signed by: JOCELYN VÁSQUEZ MD on Jan 24 2021 2:48PM [facility] DIVISION OF RADIOLOGY * * *Final Report* * * DATE OF EXAM: Jan 24 2021 11:48AM WOX 5311 - XR CERVICAL 4V AP/LAT/OBL / PROCEDURE REASON: Neck pain * * * * Physician Interpretation * * * * Cervical spine radiographs HISTORY: 75 years old Clinical information: Neck pain Patient states neck pain for 2 months with no known injury TECHNIQUE: Images: XR CERVICAL 4V AP/LAT/OBL Comparison: None. RESULT: Findings: Narrowing of the C5-6 intervertebral disc space. Mild endplate osteophyte formation at the C5 and C6 level. No fracture. Narrowing of the bilateral C5-6 neural foramina. Mild facet hypertrophy at multiple levels in the cervical spine. The prevertebral soft tissues are within normal limits. Imaged lung apices are clear. DIVISION OF RADIOLOGY Provider, Maggie [facility] - 01/24/2021 * * *Final Report* * * DATE OF EXAM: Jan 24 2021 11:48AM WOX 5311 - XR CERVICAL 4V AP/LAT/OBL / PROCEDURE REASON: Neck pain * * * * Physician Interpretation * * * * Cervical spine radiographs HISTORY: 75 years old Clinical information: Neck pain Patient states neck pain for 2 months with no known injury TECHNIQUE: Images: XR CERVICAL 4V AP/LAT/OBL Comparison: None. RESULT: Findings: Narrowing of the C5-6 intervertebral disc space. Mild endplate osteophyte formation at the C5 and C6 level. No fracture. Narrowing of the bilateral C5-6 neural foramina. Mild facet hypertrophy at multiple levels in the cervical spine. The prevertebral soft tissues are within normal limits. Imaged lung apices are clear. IMPRESSION IMPRESSION: Spondylosis of cervical spine. No acute osseous abnormality identified. Test Grader: PSCTracie Transcribe Date/Time: Jan 24 2021 2:47P Dictated by : JOCELYN VÁSQUEZ MD This examination was interpreted and the report reviewed and electronically signed by: JOCELYN VÁSQUEZ MD on Jan 24 2021 2:48PM EST [facility] Radiology Study observation (narrative) [facility] XR Cervical spine AP and Lat eral and obliqueOrdered By: [facility] Provider on 01-24-2021 [facility] Vital Signs Date Time Vital Sign Value Performing Clinician Facility 10-24-2024 12:02-0400 Diastolic blood pressure 77 mm[Hg] Treatment Wstr Work Phone: [facility] 10-24-2024 12:02-0400 Systolic blood pressure 160 mm[Hg] Treatment Wstr Work Phone: [facility] 10-24-2024 11:28-0400 Body temperature 97.7 [degF] Treatment [facility]str Work Phone: [facility] 10-24-2024 11:28-0400 Heart rate 67 /min Treatment [facility]str Work Phone: [facility] 10-24-2024 11:28-0400 SaO2% (BldA) [Mass fraction] 99 % Treatment [facility] Work Phone: [facility] 02-15-2024 10:13-0400 Diastolic blood pressure 86 mm[Hg] Marcie Devante ENGINEER [employer]OMATED [employer]QUIPMENT.GLOBAL MARKETING MANAGER Work Phone: [facility] Comment on above: recheck 02-15-2024 10:13-0400 Systolic blood pressure 138 mm[Hg] Marcie Devante ENGINEER [employer]OMATED [employer]QU[employer]MENT.GLOBAL MARKETING MANAGER Work Phone: [facility] Comment on above: recheck 02-15-2024 09:38-0400 Body mass index (BMI) [Ratio] 21.89 kg/m2 Marcie Devante ENGINEER [employer]ATED EQU[employer]MENT.GLOBAL MARKETING MANAGER Work Phone: [facility] 02-15-2024 09:38-0400 Body weight 57.8 kg Marcie Devante ENGINEER AUTOMATED [employer]QU[employer]MENT.GLOBAL MARKETING MANAGER Work Phone: [facility] 02-15-2024 09:38-0400 Heart rate 71 /min Marcie Devante ENGINEER AUTOMATED [employer]QU[employer]MENT.GLOBAL MARKETING MANAGER Work Phone: [facility] 02-15-2024 09:38-0400 Respiratory rate 16 /min Marcie Devante ENGINEER AUTOMATED EQUIPMENT.GLOBAL MARKETING MANAGER Work Phone: [facility] 02-15-2024 09:38-0400 SaO2% (BldA) [Mass fraction] 99 % Marcie Devante ENGINEER AUTOMATED EQUIPMENT.GLOBAL MARKETING MANAGER Work Phone: [facility] 10-19-2023 13:10-0400 Body temperature 98.71 [degF] Treatment Wstr Work Phone: [facility] 10-19-2023 13:10-0400 Diastolic blood pressure 75 mm[Hg] Treatment Wstr Work Phone: [facility] 10-19-2023 13:10-0400 Heart rate 87 /min Treatment Wstr Work Phone: [facility] 10-19-2023 13:10-0400 Respiratory rate 20 /min Treatment Wstr Work Phone: [facility] 10-19-2023 13:10-0400 Systolic blood pressure 158 mm[Hg] Treatment Wstr Work Phone: [facility] 01-27-2023 13:07-0400 Body height 162.5 cm Ni Wilde ENGINEER AUTOMATED EQUIPMENT.GLOBAL MARKETING MANAGER Work Phone: [facility] 01-27-2023 13:07-0400 Body weight 58.06 kg Ni Wilde ENGINEER AUTOMATED EQUIPMENT.GLOBAL MARKETING MANAGER Work Phone: [facility] 01-27-2023 13:07-0400 Diastolic blood pressure 70 mm[Hg] Ni Wilde ENGINEER AUTOMATED EQUIPMENT.GLOBAL MARKETING MANAGER Work Phone: [facility] 01-27-2023 13:07-0400 Heart rate 69 /min Ni Wilde ENGINEER AUTOMATED EQUIPMENT.GLOBAL MARKETING MANAGER Work Phone: [facility] 01-27-2023 13:07-0400 Respiratory rate 12 /min Ni Wilde ENGINEER AUTOMATED EQUIPMENT.GLOBAL MARKETING MANAGER Work Phone: [facility] 01-27-2023 13:07-0400 SaO2% (BldA) [Mass fraction] 97 % Ni Wilde ENGINEER AUTOMATED EQUIPMENT.GLOBAL MARKETING MANAGER Work Phone: [facility] 01-27-2023 13:07-0400 Systolic blood pressure 132 mm[Hg] Ni Wilde ENGINEER AUTOMATED EQUIPMENT.GLOBAL MARKETING MANAGER Work Phone: [facility] 06-24-2022 09:58-0500 Body height 160 cm Nataly YOON-C Work Phone: [facility] 06-24-2022 09:58-0500 Body temperature 98.01 [degF] Nataly YOON-C Work Phone: [facility] 06-24-2022 09:58-0500 Body weight 58.51 kg Nataly Melanie PA-C Work Phone: [facility] 06-24-2022 09:58-0500 Diastolic blood pressure 78 mm[Hg] Nataly Saticoy PA-C Work Phone: [facility] 06-24-2022 09:58-0500 Heart rate 74 /min Nataly Melanie PA-C Work Phone: [facility] 06-24-2022 09:58-0500 Respiratory rate 14 /min Natlay Saticoy PA-C Work Phone: [facility] 06-24-2022 09:58-0500 SaO2% (BldA) [Mass fraction] 98 % Nataly Saticoy PA-C Work Phone: [facility] 06-24-2022 09:58-0500 Systolic blood pressure 160 mm[Hg] Natayl Saticoy PA-C Work Phone: [facility] 06-16-2022 13:48-0500 Diastolic blood pressure 74 mm[Hg] Scar Astudillo MD Work Phone: [facility] 06-16-2022 13:48-0500 Heart rate 79 /min Scar Astudillo MD Work Phone: [facility] 06-16-2022 13:48-0500 Respiratory rate 14 /min Scar Astudillo MD Work Phone: [facility] 06-16-2022 13:48-0500 SaO2% (BldA) [Mass fraction] 97 % Scar Astudillo MD Work Phone: [facility] 06-16-2022 13:48-0500 Systolic blood pressure 150 mm[Hg] Scar Astudillo MD Work Phone: [facility] 06-16-2022 11:06-0500 Body temperature 98.8 [degF] Scar Astudillo MD Work Phone: [facility] 05-20-2022 12:13-0500 Diastolic blood pressure 99 mm[Hg] Hermila Randall MD Work Phone: [facility] 05-20-2022 12:13-0500 Heart rate 73 /min Hermila Randall MD Work Phone: [facility] 05-20-2022 12:13-0500 Systolic blood pressure 204 mm[Hg] Hermila Randall MD Work Phone: [facility] 05-20-2022 11:19-0500 Body height 160 cm Hermila Randall MD Work Phone: [facility] 05-20-2022 11:19-0500 Body weight 58.15 kg Hermila Randall MD Work Phone: [facility] 05-20-2022 11:19-0500 Respiratory rate 16 /min Hermila Randall MD Work Phone: [facility] 01-26-2022 09:31-0400 Body temperature 97 [degF] Abilio Mcbride DO Work Phone: [facility] 01-26-2022 09:31-0400 Body weight 57.15 kg Abilio Mcbride DO Work Phone: [facility] 01-26-2022 09:31-0400 Diastolic blood pressure 84 mm[Hg] Abilio Mcbride DO Work Phone: [facility] 01-26-2022 09:31-0400 Heart rate 76 /min Abilio Mcbride DO Work Phone: [facility] 01-26-2022 09:31-0400 Respiratory rate 16 /min Abilio Mcbride DO Work Phone: [facility] 01-26-2022 09:31-0400 Systolic blood pressure 130 mm[Hg] Abilio Mcbride DO Work Phone: [facility] 01-13-2022 10:42-0400 Body height 162.6 cm Nataly Navarro PA-C Work Phone: [facility] 01-13-2022 10:42-0400 Body temperature 98.01 [degF] Nataly Navarro PA-C Work Phone: [facility] 01-13-2022 10:42-0400 Body weight 58.06 kg Nataly Navarro PA-C Work Phone: [facility] 01-13-2022 10:42-0400 Diastolic blood pressure 80 mm[Hg] Nataly Leijaf PA-C Work Phone: [facility] 01-13-2022 10:42-0400 Heart rate 74 /min Nataly Leijaf PA-C Work Phone: [facility] 01-13-2022 10:42-0400 SaO2% (BldA) [Mass fraction] 98 % Nataly Leijaf PA-C Work Phone: [facility] 01-13-2022 10:42-0400 Systolic blood pressure 124 mm[Hg] Nataly Leijaf PA-C Work Phone: [facility] 11-30-2021 19:23-0400 Body height 162.56 cm [facility] Work Phone: 11-30-2021 19:23-0400 Body mass index (BMI) [Ratio] 21.4 kg/m2 [facility] Work Phone: 11-30-2021 19:23-0400 Body temperature 98 [degF] [facility] Work Phone: 11-30-2021 19:23-0400 Body weight 56.69 kg [facility] Work Phone: 11-30-2021 19:23-0400 Diastolic blood pressure 99 mm[Hg] [facility] Work Phone: 11-30-2021 19:23-0400 Heart rate 71 /min [facility] Work Phone: 11-30-2021 19:23-0400 Respiratory rate 16 /min [facility] Work Phone: 11-30-2021 19:23-0400 SaO2% (BldA) [Mass fraction] 98 % [facility] Work Phone: 11-30-2021 19:23-0400 Systolic blood pressure 152 mm[Hg] [facility] Work Phone: Encounters Encounter Date Encounter Type Care Provider Facility Start: 02-19-2025 End: 02-19-2025 ambulatory ABILIO L MCBRIDE Facility:[facility] Start: 02-19-2025 End: 02-19-2025 ambulatory ABILIO L MCBRIDE Facility:[facility] Start: 12-30-2024 End: 01-01-2025 Get Medical Advice Tiffani Rodriguez APRN.GLOBAL MARKETING MANAGER Work Phone: Family [facility] Comment on above: Atorvastatin refill Start: 12-16-2024 End: 12-18-2024 Refill Ni Wilde APRN.GLOBAL MARKETING MANAGER Work Phone: [facility] Comment on above: Refill Request Start: 10-24-2024 End: 10-24-2024 ambulatory Treatment Rm 16 Dae [facility] Work Phone: Hematology/Oncology Comment on above: Osteopenia, senile ( Primary Dx); Closed fracture of proximal end of right humerus with routine healing, unspecified fracture morphology, subsequent encounter Start: 10-17-2024 End: 10-18-2024 Telephone encounter Andre Dawson MD Work Phone: Hematology/Oncology Comment on above: Appointment Start: 10-12-2024 End: 12-12-2024 Follow-up encounter Tiffani Rodriguez APRN.GLOBAL MARKETING MANAGER Work Phone: [facility] Start: 09-22-2024 ambulatory ABILIO L MCBRIDE Facil ity:[facility] Start: 09-22-2024 End: 09-22-2024 Subsequent hospital visit by physician Bone Density [facility] Work Phone: Radiology Comment on above: Screening for osteop orosis [Z13.820] Start: 07-14-2024 End: 07-14-2024 Refill Marcie Medina APRN.GLOBAL MARKETING MANAGER Work Phone: [facility] Comment on above: Refill Request Start: 05-29-2024 End: 05-29-2024 ambulatory Óscar Cardenas MA [facility] Start: 05-29-2024 End: 05-29-2024 Patient encounter procedure Óscar Cardenas MA [facility] Comment on above: Population Health Na vigation Outreach (AWV INITIATIVE) Start: 05-03-2024 End: 05-03-2024 ambulatory ABILIO MCBRIDE Facility:[facility] Start: 05-03-2024 End: 05-03-2024 Subsequent hospital visit by physician Screen Mammo [facility] Mammogram Comment on above: Encounter for screen ing mammogram for malignant neoplasm of breast [Z12.31] Start: 04-28-2024 End: 05-02-2024 ambulatory Marcie Medina APRN.GLOBAL MARKETING MANAGER Work Phone: [facility] Comment on above: medication for recla st infusion Start: 04-28-2024 End: 04-28-2024 Patient encounter procedure Marcie Medina APRN.GLOBAL MARKETING MANAGER Work Phone: [facility] Comment on above: Mammogram appointmen t Start: 03-27-2024 End: 03-27-2024 Telephone encounter Abilio Mcbride DO Work Phone: [facility] Comment on above: Orders Start: 03-02-2024 End: 03-02-2024 ambulatory Marcie Medina APRN.GLOBAL MARKETING MANAGER Work Phone: [facility] Comment on above: Blood pressure readi ngs for Eladia Tirado Start: 02-21-2024 End: 02-21-2024 Refill Abilio Mcbride DO Work Phone: [facility] Comment on above: Refill Request Start: 02-19-2024 End: 02-19-2024 Refill Abilio Mooreon DO Work Phone: [facility] Comment on above: Refill Request Start: 02-15-2024 End: 02-15-2024 Patient encounter procedure Marcie Medina APRN.GLOBAL MARKETING MANAGER Work Phone: [facility] Comment on above: Hypertension, unspec ified type (Primary Dx); Medicare annual wellness visit, subsequent; Screening for depression; Encounter for screening examination for other mental health and behavioral disorders; Encounter for immunization; Dyslipidemia; Hyperglycemia; Screening for diabetes mellitus; Screening for thyroid disorder Start: 10-19-[address] rogelio VAUGHN.GLOBAL MARKETING MANAGER Work Phone: [facility] Comment on above: Orders Start: 10-19-2023 End: 10-19-2023 ambulatory Treatment Rm 8 [facility] Work Phone: Hematology/Oncology Comment on above: Osteopenia, senile ( Primary Dx); Closed fracture of proximal end of right humerus with routine healing, unspecified fracture morphology, subsequent encounter Start: 10-05-2023 Refill Ni Wilde APRN.GLOBAL MARKETING MANAGER Work Phone: [facility] Comment on above: Refill Request Start: 10-04-2023 Refill Ni Wilde APRN.GLOBAL MARKETING MANAGER Work Phone: [facility] Comment on above: Refill Request Start: 09-15-2023 Telephone encounter Abilio bartholomew DO Work Phone: [facility] Comment on above: question- reclast in jection Start: 04-30-2023 End: 04-30-2023 Subsequent hospital visit by physician Screen Mammo [facility] Mammogram Comment on above: Encounter for screen ing mammogram for malignant neoplasm of breast [Z12.31] Start: 04-23-2023 Telephone encounter Abilio bartholomew DO Work Phone: [facility] Comment on above: Orders Start: 04-19-2023 Refill Ni Andry VAUGHN.GLOBAL MARKETING MANAGER Work Phone: [facility] [place] Comment on above: Refill Request Start: 01-27-2023 End: 01-27-2023 Patient encounter procedure Ni Andry KHALILN.GLOBAL MARKETING MANAGER Work Phone: [facility] Comment on above: Medicare annual well ness visit, subsequent (Primary Dx); Wellness examination; Hyperlipidemia, mixed; Hyperglycemia; Osteoporosis, unspecified osteoporosis type, unspecified pathological fracture presence; Hypertension, unspecified type Start: 01-27-2023 End: 01-27-2023 Patient encounter status Ni Wilde ENGINEER AUTOMATED EQUIPMENT.GLOBAL MARKETING MANAGER Work Phone: [facility] Work Phone: Start: 01-21-2023 Telephone encounter Abilio Poppy bartholomew DO Work Phone: [facility] Comment on above: Patient Question Start: 11-07-2022 Refill Abilio ryan DO Work Phone: [facility] Comment on above: Refill Request Start: 09-28-2022 Telephone encounter Financial Navigator Dae Work Phone: Hematology/Oncology Comment on above: Benefits Investigati on Start: 08-29-2022 Refill Nataly Navarro PA -C Work Phone: General Surgery Comment on above: Refill Request Start: 08-22-2022 Refill Abilio ryan DO Work Phone: [facility] Comment on above: Refill Request Start: 06-24-2022 End: 06-24-2022 Patient encounter procedure Nataly Navarro PA-C Work Phone: General Surgery Comment on above: Family history of co pete cancer (Primary Dx); GERD without esophagitis; Hiatal hernia; Chronic superficial gastritis without bleeding Start: 06-16-2022 End: 06-16-2022 Subsequent hospital visit by physician Scar Astudillo MD Work Phone: Ambulatory Surgery Comment on above: Family history of co pete cancer [Z80.0] Start: 06-15-2022 End: 06-15-2022 ambulatory Hermila Randall MD Work Phone: Endocrinology Comment on above: Other osteoporosis w ith current pathological fracture, sequela (Primary Dx) Start: 06-15-2022 End: 06-15-2022 Telemedicine consultation with patient Hermila Randall MD Work Phone: [facility] Start: 05-20-2022 End: 05-20-2022 Patient encounter procedure Hermila Randall MD Work Phone: Endocrinology Comment on above: Other osteoporosis w ith current pathological fracture, sequela (Primary Dx) Start: 05-06-2022 Telephone encounter Abilio bartholomew DO Work Phone: [facility] Comment on above: Results Start: 04-23-2022 End: 04-23-2022 Patient encounter procedure [facility] Start: 04-23-2022 End: 04-23-2022 ambulatory Abilio Reed [facility] Work Phone: Start: 04-15-2022 End: 04-15-2022 Subsequent hospital visit by physician Bone Density [facility] Work Phone: Radiology Comment on above: Other closed nondisp laced fracture of proximal end of right humerus with routine healing, subsequent encounter [S42.294D] Start: 04-14-2022 Documentation procedure Mammog emir Coordinator [facility] Start: 04-14-2022 Letter encounter Mammography Coordinator [facility] Department Start: 04-13-2022 Telephone encounter Abilio Poppy Garsia reynaoseil DO Work Phone: [facility] Comment on above: script Start: 04-13-2022 End: 04-13-2022 Subsequent hospital visit by physician Screen Mammo [facility] Mammogram Comment on above: Encounter for screen ing mammogram for malignant neoplasm of breast [Z12.31] Start: 02-23-2022 End: 02-23-2022 ambulatory Ni José ENGINEER AUTOMATED EQUIPMENT.GLOBAL MARKETING MANAGER Work Phone: [facility] Comment on above: COVID-19 (Primary Dx ) Start: 02-23-2022 End: 02-23-2022 Telemedicine consultation with patient Ni José ENGINEER AUTOMATED EQUIPMENT.GLOBAL MARKETING MANAGER Work Phone: [facility] Start: 01-27-2022 Telephone encounter Abilio Poppy Garsia reynaosiel DO Work Phone: [facility] Comment on above: Results Start: 01-26-2022 End: 01-26-2022 Patient encounter procedure Abilio Mcbride DO Work Phone: [facility] Comment on above: Osteopenia, senile ( Primary Dx); Hyperlipidemia, mixed; Neck pain; Other osteoarthritis of spine, lumbar region; Hyperglycemia; Dyslipidemia; Encounter for screening mammogram for malignant neoplasm of breast; Other closed nondisplaced fracture of proximal end of right humerus with routine healing, subsequent encounter; Screening for osteoporosis Start: 01-13-2022 Telephone encounter Nataly gonzalez PA-C Work Phone: General Surgery Comment on above: 02-25 [facility] Start: 01-13-2022 End: 01-13-2022 Patient encounter procedure Nataly Navarro PA-C Work Phone: General Surgery Comment on above: Encounter for screen ing for malignant neoplasm of colon (Primary Dx); Family history of colon cancer; Gastroesophageal reflux disease, unspecified whether esophagitis present; History of gastritis Start: 01-08-2022 Refill Marcie vazquez APRN.CNP Work Phone: [facility] Comment on above: Refill Request Start: 11-30-2021 End: 11-30-2021 Emergency department patient visit Abilio Mcbride Facility:[facility] Start: 11-30-2021 End: 11-30-2021 Emergency department patient visit [facility] Start: 01-24-2021 End: 01-24-2021 Subsequent hospital visit by physician Xr [facility] Work Phone: Radiology Comment on above: Neck pain [M54.2] Start: 11-16-2018 Patient encounter procedure Marcie Medina APRN.CNP Work Phone: [facility] Work Phone: Procedures Date Procedure Procedure Detail Performing Clinician Start: 02-15-2024 Adult depression screening assessment Marcie Medina APRN.CNP Work Phone: Start: 06-16-2022 Level iv surg pathology gross&microscopic exam Scar Astudillo MD Work Phone: Start: 06-16-2022 Esophagogastroduodenoscopy transoral diagnostic Nataly Navarro PA-C Work Phone: Start: 06-16-2022 Colonoscopy flx dx w/collj spec when pfrmd Nataly Navarro PA-C Work Phone: Start: 06-16-2022 Colonoscopy Nataly Navarro PA-C Work Phone: Start: 04-23-2022 MRI of upper limb Start: 04-15-2022 Dxa bone density study 1/> sites axial skel Abilio Mcbride DO Work Phone: Start: 04-13-2022 BARBIE SCREENING W NA Abilio Mcbride DO Work Phone: Start: 01-26-2022 Adult depression screening assessment Abilio Mcbride DO Work Phone: Start: 11-30-2021 Plain X-ray of shoulder Start: 01-24-2021 Radex spine cervical 4 or 5 views Abilio Mcbride DO Work Phone: Start: 01-22-2021 Adult depression screening assessment Marcie Devante ALBERTS Work Phone: Plan of Treatment Date Care Activity Detail Author Start: 10-25-2027 Diabetes Screening Diabetes Screenin [facility] Start: 06-16-2027 Colonoscopy COLONOSCOPY [facility] Start: 06-16-2027 COLORECTAL CANCER SCREENING COLORECTAL CANCER SCREENING [facility] Start: 06-16-2027 Screening for malign ant neoplasm of colon [facility] Start: 02-14-2027 Diabetes Screening Diabetes Screenhi g [facility] Start: 10-18-2026 [facility] Start: 01-23-2026 Diabetes Screening Diabetes Screenhi g [facility] Start: 10-22-2025 Urine microalbumin profile [facility] Start: 10-05-2025 DIABETES SCREEN DIABETES SCREEN [facility] Start: 05-21-2025 DIABETES SCREEN DIABETES SCREEN [facility] Start: 02-19-2025 End: 02-19-2025 Patient encounter procedure 02/19/2025 9:00 AM EDT Office Visit Family Evelyn Hernandez [address] [place] [place] [id number] Abilio Mcbride DO [address] [place] [id number] yearly [facility] Comment on above: yearly Start: 02-14-2025 Annual PCP Team Quality Head eliane Disease Visit Annual PCP Team Chronic Disease Visit [facility] Start: 02-14-2025 Anxiety Screening Anxiety Screening [facility] Start: 02-14-2025 Covid-19 Vaccine ( season) Covid-19 Vaccine () [facility] Comment on above: Postponed from 01/15 (Declined at this time) Start: 02-14-2025 Depression Screening Depression Scre ening [facility] Start: 01-26-2025 DIABETES SCREEN DIABETES SCREEN [facility] Start: 01-15-2025 Influenza vaccination Influenza Vacc ine (#1) [facility] Start: 11-13-2024 Influenza vaccination Influenza Vacc ine (#1) [facility] Comment on above: Postponed from 01/15 (Currently Scheduled) Start: 10-24-2024 End: 10-24-2024 [facility] Comment on above: BMP(S)* 1 YR RECTYE/ABILIO MCBRIDE ORDERING/LAB EARLY* Start: 09-22-2024 End: 09-22-2024 Patient encounter procedure 09/22/2024 1:40 PM EDT Appointment Radiology [address] [place] [id number] Screening for osteoporosis [Z13.820] Radiology Comment on above: Screening for osteop orosis [Z13.820] Start: 09-21-2024 End: 09-21-2024 Patient encounter procedure 09/21/2024 1:40 PM EDT Appointment Radiology [address] [place] [id number] Screening for osteoporosis [Z13.820] Radiology Comment on above: Screening for osteop orosis [Z13.820] Start: 08-31-2024 Covid-19 Vaccine ( season) Covid-19 Vaccine () [facility] Start: 05-17-2024 Advance Directive Discussion Advance Directive Discussion [facility] Start: 05-17-2024 Medicare Advantage Annual Wellness Visit Medicare Advantage Annual Wellness Visit [facility] Start: 05-03-2024 End: 05-03-2024 Patient encounter procedure 05/03/2024 2:20 PM EST Appointment Mammogram [address] [place] [address] BARBIE SCREENING W NA Mammogram Comment on above: BARBIE SCREENING W NA Start: 04-15-2024 Screening for osteoporosis Bone Density Screening [facility] Start: 01-31-2024 End: 01-31-2024 Patient encounter procedure 01/31/2024 11:00 AM EDT Office Visit [facility] [place] [address] [place] [address] Abilio Mcbride DO [address] [place] [address] medicare wellness [facility] [place] Comment on above: medicare wellness Start: 01-28-2024 Covid-19 Vaccine () Covid-19 Vaccine ( season) [facility] Comment on above: Postponed from 01/15 (Declined at this time) Start: 01-28-2024 Covid-19 Vaccine (4 - Moderna series) Covid-19 Vaccine (4 - Moderna series) [facility] Comment on above: Postponed from 05/30 (Declined at this time) Start: 01-25-2024 DIABETES SCREEN DIABETES SCREEN [facility] Start: 11-14-2023 Influenza vaccination Influenza Vacc ine (#1) [facility] Comment on above: Postponed from 01/15 (Declined at this time) Start: 10-19-2023 End: 10-19-2023 ambulatory Bk [facility] Laboratory Comment on above: BMP(S)* BMP(S)/START 1 YR RE SERJIO/ABILIO MCBRIDE ORDERING/AUTHE EXP ?* Start: 10-05-2023 End: 01-04-2024 Basic metabolic 2000 panel - Serum or Plasma BASIC METABOLIC PANEL Lab STAT Osteopenia, senile Osteoporosis, unspecified osteoporosis type, unspecified pathological fracture presence Expected: 10/05/2023, Expires: 01/04/2024 [facility] Work Phone: Comment on above: Expected: 10/05/2023 , Expires: 01/04/2024 Start: 06-26-2023 Covid-19 Vaccine () Covid-19 Vaccine () [facility] Start: 05-17-2023 Advance Directive Discussion Advance Directive Discussion [facility] Start: 05-17-2023 Behavioral Health Screening Behavioral Health Screening [facility] Start: 01-26-2023 Adult depression screening assessment DEPRESSION SCREENING [facility] Start: 01-21-2023 End: 03-23-2023 CBC W Auto Differential panel - Blood CBC + DIFF Lab Routine Hyperlipidemia, mixed Expected: 01/21/2023, Expires: 03/23/2023 [facility] Work Phone: Comment on above: Expected: 01/21/2023 , Expires: 03/23/2023 Start: 01-21-2023 End: 03-23-2023 Comprehensive metabolic 2000 panel - Serum or Plasma COMP METABOLIC PANEL Lab Routine Hyperlipidemia, mixed Hyperglycemia Expected: 01/21/2023, Expires: 03/23/2023 [facility] Work Phone: Comment on above: Expected: 01/21/2023 , Expires: 03/23/2023 Start: 01-21-2023 End: 03-23-2023 Lipid 1996 panel - Serum or Plasma LIPID PANEL BASIC Lab Routine Hyperlipidemia, mixed Expected: 01/21/2023, Expires: 03/23/2023 [facility] Work Phone: Comment on above: Expected: 01/21/2023 , Expires: 03/23/2023 Start: 01-15-2023 Influenza vaccination INFLUENZA (#1) [facility] Start: 05-30-2022 COVID-19 VACCINE (4 - Moderna series) COVID-19 VACCINE (4 - Moderna series) [facility] Start: 05-20-2022 End: 07-20-2022 ALK PHOS BONE SPEC ALK PHOS BONE SPEC Lab Routine Other osteoporosis with current pathological fracture, sequela Expected: 05/20/2022, Expires: 07/20/2022 [facility] Work Phone: Comment on above: Expected: 05/20/2022 , Expires: 07/20/2022 Start: 05-20-2022 End: 07-20-2022 CALCIUM 24 HR URINE CALCIUM 24 HR URINE Lab Routine Other osteoporosis with current pathological fracture, sequela Expected: 05/20/2022, Expires: 07/20/2022 [facility] Work Phone: Comment on above: Expected: 05/20/2022 , Expires: 07/20/2022 Start: 05-20-2022 End: 07-20-2022 CELIAC SCREEN WITH REFLEX CELIAC SCREEN WITH REFLEX Lab Routine Other osteoporosis with current pathological fracture, sequela Expected: 05/20/2022, Expires: 07/20/2022 [facility] Work Phone: Comment on above: Expected: 05/20/2022 , Expires: 07/20/2022 Start: 05-20-2022 End: 07-20-2022 Collagen crosslinked C-telopeptide [Mass/volume] in Serum or Plasma C TELOPEPTIDE, BETA Lab Routine Other osteoporosis with current pathological fracture, sequela Expected: 05/20/2022, Expires: 07/20/2022 [facility] Work Phone: Comment on above: Expected: 05/20/2022 , Expires: 07/20/2022 Start: 05-20-2022 End: 07-20-2022 Comprehensive metabolic 2000 panel - Serum or Plasma COMP METABOLIC PANEL Lab Routine Other osteoporosis with current pathological fracture, sequela Expected: 05/20/2022, Expires: 07/20/2022 [facility] Work Phone: Comment on above: Expected: 05/20/2022 , Expires: 07/20/2022 Start: 05-20-2022 End: 07-20-2022 CREATININE 24 HR UR CREATININE 24 HR UR Lab Routine Other osteoporosis with current pathological fracture, sequela Expected: 05/20/2022, Expires: 07/20/2022 [facility] Work Phone: Comment on above: Expected: 05/20/2022 , Expires: 07/20/2022 Start: 05-20-2022 End: 07-20-2022 Phosphate [Mass/volume] in Serum or Plasma PHOSPHORUS INORGANIC Lab Routine Other osteoporosis with current pathological fracture, sequela Expected: 05/20/2022, Expires: 07/20/2022 [facility] Work Phone: Comment on above: Expected: 05/20/2022 , Expires: 07/20/2022 Start: 05-20-2022 End: 07-20-2022 PROTEIN ELECTROPHORESIS SERUM W/INTERP PROTEIN ELECTROPHORESIS SERUM W/INTERP Lab Routine Other osteoporosis with current pathological fracture, sequela Expected: 05/20/2022, Expires: 07/20/2022 [facility] Work Phone: Comment on above: Expected: 05/20/2022 , Expires: 07/20/2022 Start: 05-20-2022 End: 07-20-2022 Thyrotropin [Units/volume] in Serum or Plasma TSH BLD Lab Routine Other osteoporosis with current pathological fracture, sequela Expected: 05/20/2022, Expires: 07/20/2022 [facility] Work Phone: Comment on above: Expected: 05/20/2022 , Expires: 07/20/2022 Start: 05-20-2022 End: 07-20-2022 Thyroxine (T4) free [Mass/volume] in Serum or Plasma T4 FREE/FREE THYROX Lab Routine Other osteoporosis with current pathological fracture, sequela Expected: 05/20/2022, Expires: 07/20/2022 [facility] Work Phone: Comment on above: Expected: 05/20/2022 , Expires: 07/20/2022 Start: 05-17-2022 ADVANCE DIRECTIVE DISCUSSION ADVANCE DIRECTIVE DISCUSSION [facility] Start: 05-17-2022 DEPRESSION ASSESSMENT DEPRESSION ASS ESSMENT [facility] Start: 01-26-2022 End: 03-28-2022 CBC W Auto Differential panel - Blood [facility] Work Phone: Comment on above: Expected: 01/26/2022 , Expires: 03/28/2022 Start: 01-26-2022 End: 03-28-2022 Comprehensive metabolic 2000 panel - Serum or Plasma [facility] Work Phone: Comment on above: Expected: 01/26/2022 , Expires: 03/28/2022 Start: 01-26-2022 End: 03-28-2022 Hemoglobin A1c in Blood [facility] Work Phone: Comment on above: Expected: 01/26/2022 , Expires: 03/28/2022 Start: 01-26-2022 End: 03-28-2022 Lipid 1996 panel - Serum or Plasma [facility] Work Phone: Comment on above: Expected: 01/26/2022 , Expires: 03/28/2022 Start: 01-26-2022 End: 03-28-2022 Thyrotropin [Units/volume] in Serum or Plasma [facility] Work Phone: Comment on above: Expected: 01/26/2022 , Expires: 03/28/2022 Start: 01-26-2022 End: 03-28-2022 Urinalysis complete panel - Urine [facility] Work Phone: Comment on above: Expected: 01/26/2022 , Expires: 03/28/2022 Start: 01-22-2022 Adult depression screening assessment DEPRESSION SCREENING [facility] Start: 01-15-2022 Influenza vaccination INFLUENZA (#1) [facility] Start: 05-17-2021 ADVANCE DIRECTIVE DISCUSSION ADVANCE DIRECTIVE DISCUSSION [facility] Start: 05-17-2021 DEPRESSION ASSESSMENT DEPRESSION ASS ESSMENT [facility] Start: 12-02-2020 COVID-19 VACCINE (3 - Booster for Moderna series) COVID-19 VACCINE (3 - Booster for Moderna series) [facility] Start: 2005 RSV Vaccine (1 - 1-d ose 60+ series) RSV Vaccine (1 - 1-dose 60+ series) [facility] Start: 1990 COLOGUARD (FIT-DNA) COLOGUARD (FIT-D NA) [facility] Start: [address] COLONOGRAPHY [facility] Start: 1990 FECAL OCCULT BLOOD FECAL OCCULT BLOO D [facility] Start: 1990 Screening for malign ant neoplasm of colon [facility] Start: 1990 [facility] Start: 1963 BP Controlled (<130/80) BP Controlle d (<130/80) [facility] ALK PHOS BONE SPEC ALK PHOS BONE SPEC Lab Routine Other osteoporosis with current pathological fracture, sequela 05/21/2022 9:15 AM [facility] Work Phone: CELIAC SCREEN WITH REFLEX CELIAC SCREEN WITH REFLEX Lab Routine Other osteoporosis with current pathological fracture, sequela 05/21/2022 9:15 AM [facility] Work Phone: Collagen crosslinked C-telopeptide [Mass/volume] in Serum or Plasma C TELOPEPTIDE, BETA Lab Routine Other osteoporosis with current pathological fracture, sequela 05/21/2022 9:15 AM [facility] Work Phone: Comprehensive metabo lic 2000 panel - Serum or Plasma COMP METABOLIC PANEL Lab Routine Other osteoporosis with current pathological fracture, sequela 05/21/2022 9:15 AM [facility] Work Phone: End: 05-28-2025 DBT Breast - bilateral screening BARBIE SCREENING W NA Radiology Routine Encounter for screening mammogram for malignant neoplasm of breast 1 Occurrences starting 04/28/2024 until 05/28/2025 [facility] Work Phone: Comment on above: 1 Occurrences starti ng 04/28/2024 until 05/28/2025 DBT Breast - bilater al screening BARBIE SCREENING W NA Radiology Routine Encounter for screening mammogram for malignant neoplasm of breast 05/03/2024 2:48 PM [facility] Work Phone: End: 02-25-2023 Dxa bone density study 1/> sites axial skel DXA-AXIAL SKELETON Radiology Routine Other closed nondisplaced fracture of proximal end of right humerus with routine healing, subsequent encounter Screening for osteoporosis 1 Occurrences starting 01/26/2022 until 02/25/2023 [facility] Work Phone: Comment on above: 1 Occurrences starti ng 01/26/2022 until 02/25/2023 End: 04-26-2025 DXA Skeletal system.axial Views for bone density DXA-AXIAL SKELETON Radiology Routine Screening for osteoporosis 1 Occurrences starting 03/27/2024 until 04/26/2025 [facility] Work Phone: Comment on above: 1 Occurrences starti ng 03/27/2024 until 04/26/2025 DXA Skeletal system.axial Views for bone density DXA-AXIAL SKELETON Radiology Routine Screening for osteoporosis 09/22/2024 10:12 AM EDT [facility] Work Phone: End: 01-13-2023 EGD DIAGNOSTIC EGD DIAGNOSTIC Endoscopy Routine Gastroesophageal reflux disease, unspecified whether esophagitis present History of gastritis 1 Occurrences starting 01/13/2022 until 01/13/2023 [facility] Work Phone: Comment on above: 1 Occurrences starti ng 01/13/2022 until 01/13/2023 End: 02-25-2023 BARBIE SCREENING W NA BARBIE SCREENING W NA Radiology Routine Encounter for screening mammogram for malignant neoplasm of breast 1 Occurrences starting 01/26/2022 until 02/25/2023 [facility] Work Phone: Comment on above: 1 Occurrences starti ng 01/26/2022 until 02/25/2023 End: 05-22-2024 BARBIE SCREENING W NA BARBIE SCREENING W NA Radiology Routine Encounter for screening mammogram for malignant neoplasm of breast 1 Occurrences starting 04/23/2023 until 05/22/2024 [facility] Work Phone: Comment on above: 1 Occurrences starti ng 04/23/2023 until 05/22/2024 BARBIE SCREENING W NA BARBIE SCREENI NG W NA Radiology Routine Encounter for screening mammogram for malignant neoplasm of breast 04/30/2023 12:40 PM EST [facility] Work Phone: Patient Education ED Fracture, U pper Extremity ED Head Injury (Adult) [facility] Work Phone: Patient referral [facility] Work Phone: Phosphate [Mass/volu me] in Serum or Plasma PHOSPHORUS INORGANIC Lab Routine Other osteoporosis with current pathological fracture, sequela 05/21/2022 9:15 AM EST [facility] Work Phone: PROTEIN ELECTROPHORE SIS SERUM W/INTERP PROTEIN ELECTROPHORESIS SERUM W/INTERP Lab Routine Other osteoporosis with current pathological fracture, sequela 05/21/2022 9:15 AM EST [facility] Work Phone: End: 01-13-2023 Screening colonoscopy COLONOSCOPY SCREENING Endoscopy Routine Family history of colon cancer 1 Occurrences starting 01/13/2022 until 01/13/2023 [facility] Work Phone: Comment on above: 1 Occurrences starti ng 01/13/2022 until 01/13/2023 Thyrotropin [Units/volume] in Serum or Plasma TSH BLD Lab Routine Other osteoporosis with current pathological fracture, sequela 05/21/2022 9:15 AM EST [facility] Work Phone: Thyroxine (T4) free [Mass/volume] in Serum or Plasma T4 FREE/FREE THYROX Lab Routine Other osteoporosis with current pathological fracture, sequela 05/21/2022 9:15 AM [facility] Work Phone: [facility] Immunizations Immunization Date Immunization Notes Care Provider Colton lott 03-02-2024 influenza virus vacc ine, unspecified formulation Tiffani Rodriguez ENGINEER [employer].GLOBAL MARKETING MANAGER Work Phone: [facility] 02-23-2023 influenza virus vacc ine, unspecified formulation Marcie Medina ENGINEER [employer]ATED [employer]MENT.GLOBAL MARKETING MANAGER Work Phone: [facility] 01-30-2022 influenza virus vacc ine, unspecified formulation Ni Wilde ENGINEER [employer]ATED [employer]MENT.GLOBAL MARKETING MANAGER Work Phone: [facility] 01-24-2021 influenza, high-dose , quadrivalent vaccine (FLUZONE HIGH DOSE QUADRIVALENT) Marcie Medina ENGINEER [employer]ATED [employer]MENT.GLOBAL MARKETING MANAGER Work Phone: [facility] Work Phone: 07-05-2020 COVID-19 vaccine, fu ll dose (MODERNA) Marcie Medina ENGINEER [employer]ATED [employer]MENT.GLOBAL MARKETING MANAGER Work Phone: [facility] Work Phone: 06-07-2020 COVID-19 vaccine, fu ll dose (MODERNA) Marcie Devante ENGINEER [employer]ATED [employer]MENT.GLOBAL MARKETING MANAGER Work Phone: [facility] Work Phone: 01-18-2020 influenza, high dose seasonal, preservative-free Marcie Devante ENGINEER [employer]MENT.GLOBAL MARKETING MANAGER Work Phone: [facility] Work Phone: 04-30-2019 zoster vaccine recombinant Marcie Devante ENGINEER [employer]ATED [employer]MENT.GLOBAL MARKETING MANAGER Work Phone: [facility] Work Phone: 02-28-2019 zoster vaccine recombinant Marcie Devante ENGINEER [employer]ATED [employer]MENT.GLOBAL MARKETING MANAGER Work Phone: [facility] Work Phone: 02-14-2019 influenza, high dose seasonal, preservative-free Marcie Devante ENGINEER [employer]MENT.GLOBAL MARKETING MANAGER Work Phone: [facility] 01-18-2018 influenza, seasonal, injectable Marcie Devante ENGINEER [employer]ATED [employer]MENT.GLOBAL MARKETING MANAGER Work Phone: [facility] 01-19-2017 influenza, seasonal, injectable Marcie Devante ENGINEER [employer]MENT.GLOBAL MARKETING MANAGER Work Phone: [facility] Work Phone: 02-19-2016 influenza, high dose seasonal, preservative-free Marcie Devante ENGINEER [employer]ATED [employer]MENT.GLOBAL MARKETING MANAGER Work Phone: [facility] Work Phone: 10-23-2015 tetanus toxoid, redu tanisha diphtheria toxoid, and acellular pertussis vaccine, adsorbed Marcie Devante ENGINEER [employer]MENT.GLOBAL MARKETING MANAGER Work Phone: [facility] 03-11-2015 influenza, seasonal, injectable Marcie Devante ENGINEER [employer]ATED [employer]MENT.GLOBAL MARKETING MANAGER Work Phone: [facility] 09-24-2014 pneumococcal conjuga te vaccine, 13 valent Marcie Devante ENGINEER [employer]ATED [employer]MENT.GLOBAL MARKETING MANAGER Work Phone: [facility] 02-06-2014 influenza, seasonal, injectable Marcie Devante ENGINEER [employer]ATED [employer]MENT.GLOBAL MARKETING MANAGER Work Phone: [facility] 02-29-2012 influenza virus vacc ine, unspecified formulation Marcie Devante ENGINEER AUT[employer]ATED [employer]QUIPMENT.GLOBAL MARKETING MANAGER Work Phone: [facility] Work Phone: 05-15-2011 pneumococcal polysaccharide vaccine, 23 valent Marcie Devante ENGINEER AUTOMATED EQUIPMENT.[facility] Work Phone: [facility] 05-19-2010 zoster vaccine, live Marcie Devante ENGINEER AUT[employer]ATED EQUIPMENT.GLOBAL MARKETING MANAGER Work Phone: [facility] Work Phone: 03-15-2009 influenza virus vacc ine, unspecified formulation Marcie Devante ENGINEER AUT[employer]ATED [employer]QU[employer]MENT.[facility] Work Phone: [facility] Work Phone: 04-26-2008 influenza virus vacc ine, unspecified formulation Marcie Devante ENGINEER AUTOMATED EQUIPMENT.[facility] Work Phone: [facility] Work Phone: 04-26-2007 influenza virus vacc ine, unspecified formulation Marcie Devante ENGINEER AUT[employer]ATED [employer]QU[employer]MENT.[facility] Work Phone: [facility] Work Phone: 05-29-2005 tetanus and diphther ia toxoids, adsorbed, preservative free, for adult use (2 Lf of tetanus toxoid and 2 Lf of diphtheria toxoid) Marcie Devante ENGINEER [employer]ATED [employer]QUIPMENT.[facility] Work Phone: [facility] Payers Date Payer Category Payer Self-pay 2012 Medicare AETNA MEDICARE A ETNA MEDICARE PPO [id number] 2012-Present [phone] [address] [place] [address] PPO [id number] 2012 Medicare (Managed Care) [place] [id number] 2012 Private Health Insurance 101 [id number] Unknown [id number] Unknown [id number] Social History Date Type Detail Facility Start: 11-30-2021 End: 11-30-2021 Tobacco smoking status NHIS Unknown if ever smoked [facility] Work Phone: Start: 1945 Sex Assigned At Female W [facility] Work Phone: Start: 05-06-2017 End: 01-13-2022 Tobacco smoking status NHIS Never smoked tobacco [facility] Start: 05-06-2017 End: 01-13-2022 Tobacco use and exposure Smokeless tobacco non-user [facility] Start: 01-24-2021 End: 02-15-2024 Alcohol intake Current drinker of alcohol (finding) [facility] Start: 01-22-2021 End: 01-25-2022 History SDOH Alcohol Frequency 5 [facility] Start: 01-22-2021 End: 01-25-2022 History SDOH Alcohol Std Drinks 1 [facility] Start: 01-22-2021 End: 02-23-2022 History SDOH [facility] Start: 01-22-2021 History SDOH Social Connections Phone 4 [facility] Start: 01-22-2021 End: 01-25-2022 History SDOH Social Connections Get Together 3 [facility] Start: 01-22-2021 Education 18 [facility] Start: 1945 Sex Assigned At Not on file C [facility] Start: 12-25-2020 End: 04-13-2022 Exposure to SARS-CoV-2 (event) Not sure [facility] Start: 01-25-2022 History SDOH Social Connections [employer] 98 [facility] Start: 06-24-2022 End: 10-05-2022 Alcohol intake [facility] Start: 10-05-2022 End: 01-21-2023 Social connection and isolation panel [facility] Do you belong to any clubs or organizations such as orthodox groups, unions, fraternal or athletic groups, or school groups? Yes [facility] Are you now , , , , never or living with a partner? [facility] How often to you hav e a drink containing alcohol? 4 or more times a week [facility] How many standard dr inks containing alcohol do you have on a typical day? 1 or 2 [facility] How often do you hav e 6 or more drinks on 1 occasion? Less than monthly [facility] Start: 04-17-2012 How hard is it for y ou to pay for the very basics like food, housing, medical care, and heating Not hard at all [facility] Do you feel stress - tense, restless, nervous, or anxious, or unable to sleep at night because your mind is troubled all the time - these days [OSQ] Only a little [facility] (I/We) worried wheth er (my/our) food would run out before (I/we) got money to buy more. Never true [facility] In the past 12 month s, was there a time when you were not able to pay the mortgage or rent on time? No [facility] Start: 06-16-2022 Alcohol Comment two glasses of wine daily [facility] How often do you hav e 6 or more drinks on 1 occasion? Never [facility] Functional Status Date Assessment Result Facility 10-18-2014 Are you deaf, or do you have serious difficulty hearing No 10/18/2014 10:11 AM Brianna Kelley LPN No [facility] 10-18-2014 Are you blind, or do you have serious difficulty seeing, even when wearing glasses No 10/18/2014 10:11 AM Brianna Kelley LPN No [facility] 10-18-2014 Do you have serious difficulty walking or climbing stairs No 10/18/2014 10:11 AM EDT Brianna Sotelo LPN [facility] 10-18-2014 Do you have difficul ty dressing or bathing No 10/18/2014 10:11 AM EDT Brianna Sotelo LPN [facility] 10-18-2014 Because of a physica l, mental, or emotional condition, do you have difficulty doing errands alone such as visiting a physician's office or shopping No 10/18/2014 10:11 AM EDT Brianna Sotelo LPN [facility] Mental Status Date Assessment Result Facility 10-18-2014 Because of a physica l, mental, or emotional condition, do you have serious difficulty concentrating, remembering, or making decisions No 10/18/2014 10:11 AM EDT Brianna Sotelo LPN [facility] Clinical Notes 01-24-2021 to 02-19-2025 Telephone Encounter - Natalia Mederos MA - 01/01/2025 8:31 AM EDTTelephone Encounter - Natalia Mederos MA - 01/01/2025 8:31 AM EDTTelephone Encounter - Francisca Casper MA - 12/18/2024 10:58 AM EDT Note Date & Type Note Facility 02-19-2025 Note HNO ID: [id number] Author: ABILIO MCBRIDE, DO Service: ? Author Type: Physician Type: Progress Notes Filed: 02/19/2025 10:38 Note Text: CC: Eladia Tirado is a 79 year old female who presents to the office for follow up HPI: HTN, well controlled, no concerns, taking medication as prescribed, denies any CP or dyspnea or dizziness or LH HPL, taking lipitor as prescribed. Osteoporosis, use of Reclast as prescribed. Some muscle aches/joint pains and fatigue, this is mild. Overall feeling well PAST MEDICAL HISTORY Diagnosis Date Arthritis Disorder of bone and cartilage, unspecified Esophagitis, unspecified Family history of malignant neoplasm of gastrointestinal tract Hypertension Internal hemorrhoids without mention of complication Other and unspecified hyperlipidemia Seasonal allergies Unspecified hemorrhoids without mention of complication Hemorrhoids PAST SURGICAL HISTORY Procedure Laterality Date COLONOSCOPY 12/11/2016 normal, repeat in 5 yrs due to family history COLONOSCOPY 06/16/2022 COLONOSCOPY FLX DX W/COLLJ SPEC WHEN PFRMD 2002 Colonoscopy COLONOSCOPY FLX DX W/COLLJ SPEC WHEN PFRMD 10/29/2011 repeat 5 years EGD 12/11/2016 gastritis and fundic gland polyps EGD 06/16/2022 EYE SURGERY HX FOOT SURGERY HX Right 08/2015 FRACTURE SURGERY SKIN BIOPSY HX Social History: SOCIAL HISTORY[1] FAMILY HISTORY Problem Relation Age of Onset Hypertension Mother Lipids Mother Blood Disease Mother Heart Mother CAD, CABG Kidney Disease Mother ESRD, on HD Cancer Father brain Heart Brother Heart Sister CAD, smoker Cancer Maternal Grandfather colon Cancer Maternal Aunt colon Colon Cancer Brother 50 Colon Cancer Brother 60 Current Outpatient prescriptions: atorvastatin (LIPITOR) 20 mg tablet Take 1 tablet by mouth daily at bedtime. For cholesterol. losartan (COZAAR) 50 mg tablet TAKE 1 TABLET ONCE DAILY zoledronic acid (RECLAST) 5 mg/100 mL PREMIX piggyback Inject 100 mL intravenously every year. Patient should start on October 23, 2024. calcium phosphate trib/vit D3 (CITRACAL + D3, CALCIUM PHOS, ORAL) Take 2 tablets by mouth once daily. cholecalciferol, vitamin D3, (VITAMIN D3 ORAL) Take 2 tablets by mouth once daily. MEDICATION, NON-DATABASE Aloe Gel MEDICATION, NON-DATABASE Take by mouth once daily. Turmeric omega-3 fatty acids(FISH OIL 500 MG CAP) Take one(1) capsule daily. MULTIVITAMIN TAB Take one(1) tablet daily. Allergies: ALLERGIES No Known Allergies ROS: See HPI PE: 02/19/25 0922 BP: 140/90 Pulse: 72 Resp: 16 Temp: 36.2 ?C (97.1 ?F) TempSrc: Left Tympanic SpO2: 98% Weight: 56.6 kg (124 lb 12.8 oz) Height: 166 cm (5' 5.35) Gen: AANDO, NAD, non-toxic appearing, Pleasant, cooperative HEENT: NT/AC, PERRLA, EOMs intact b/l, nares clear and patent b/l, pharynx without erythema, exudate or lesions. MMM, Uvula midline. EACs without erythema or debris. TMs pearly browning with intact landmarks b/l. Neck: supple, No cervical LAD, no thyromegaly, no carotid bruits CV: RRR, normal S1 and S2, no murmurs, no gallops, no rubs, Pulses 2+ and symmetric in UE and LE b/l Lungs: normal respiratory effort, CTA b/l, no wheezing or rhonchi or rales Abd: soft, NT, ND, +BS, no hepatosplenomegaly MS: FROM all 4 extremities Neuro: CN II-XII intact b/l, strength 5/5 b/l UE and LE, DTRs 2/4 UE and LE, sensation intact. Skin: warm, dry, intact, No rashes or lesions on exposed skin. No edema, normal peripheral pulses ASSESSMENT/PLAN: 1. Medicare annual wellness visit, subsequent - ICD9: V70.0, ICD10: Z00.00 (primary diagnosis) - Counseled on healthy diet and regular exercise 2. Hyperlipidemia, mixed - ICD9: 272.2, ICD10: E78.2 - Controlled - Continue current medications - Counseled on healthy diet and regular exercise - COMPLETE BLOOD COUNT AND DIFFERENTIAL - LIPID PANEL, FASTING 3. Hypertension, unspecified type - ICD9: 401.9, ICD10: I10 - Controlled - Continue current medications - Recommend home blood pressure monitoring, to bring results to next visit - Encouraged sodium restriction, DASH or Mediterranean diet - Recommend regular aerobic exercise - C-REACTIVE PROTEIN - THYROID STIMULATING HORMONE - URINALYSIS, WITH MICROSCOPIC 4. Hyperglycemia - ICD9: 790.29, ICD10: R73.9 - HEMOGLOBIN A1C 5. Osteoporosis, unspecified osteoporosis type, unspecified pathological fracture presence - ICD9: 733.00, ICD10: M81.0 - Reviewed the need for Calcium and Vitamin D supplements and weight bearing exercise as tolerated - COMPLETE BLOOD COUNT AND DIFFERENTIAL - C-REACTIVE PROTEIN - THYROID STIMULATING HORMONE - MAGNESIUM - VITAMIN D 25 HYDROXY Abilio Mcbride DO To ER if develops chest pain, shortness of breath, or severe worsening of symptoms. Discussed risks, benefits, alternatives, and potential side effects of medications. Patient expressed understanding and agreed with th (more content not included)... [facility] 02-19-2025 Note HNO ID: [id number] Author: ABILIO MCBRIDE DO Service: ? Author Type: Physician Type: Progress Notes Filed: 02/19/2025 10:38 Note Text: Eladia Tirado is a 79 year old female here for a Medicare wellness visit. Medicare Health Risk Assessment General Health Very good Exercise: Minutes/Day 40 min Exercise: Days/Week 5 days Alcohol: Daily Use 4 or more times a week Alcohol: Drinks/Day 1 or 2 Alcohol: 6 or more drinks Never Feel off balance No Concerns: Teeth/Dentures No Concerns: Sexual function No Troubled by feelings None of the above Frequency: Eating healthy diet More than half the days ADLs requiring help None of the above Safety precautions in home/vehicle Yes Smoke, vape, chews tobacco No Difficulty hearing No Difficulty seeing No Current Providers Specialists: I have reviewed specialist-related care of the patient in the medical record. Medical/Family history review Reviewed and updated problem list, medical/surgical/family/social history, medications, and allergies. Opioid use review Opioid Medications (last 90 days) No data to display Anxiety/Depression screening PHQ-9 Score: 2 (Minimal Depression) ALL-7 Score: 0. Recommendation: no further intervention at this time Cognitive screening Mini Cog Score: 5 Cognitive screening reviewed and No further action needed (score 3-5). Functional Observation Was the patient's Timed Up AND Go test unsteady or >= 12 seconds? No Advance Care Planning Surrogate decision maker and/or advance care plan documented Measurements BP 140/90 Pulse 72 Temp 36.2 ?C (97.1 ?F) (Left Tympanic) Resp 16 Ht 166 cm (5' 5.35) Wt 56.6 kg (124 lb 12.8 oz) SpO2 98% BMI 20.54 kg/m? Vision Screening: Follows with optometry/ophthalmology Assessment/Plan Medicare annual wellness visit, subsequent (Z00.00) - Counseled on healthy diet and regular exercise - Fall avoidance information provided - Personalized prevention plan provided Abilio Mcbride DO [facility] 01-01-2025 Telephone encounter Note Prescription Refill Information The patient has been identified by name and date of : Yes Caregiver verified no other encounters exist for this prescription request: Yes Caregiver confirmed with patient/requestor that no other refills are due, in the near future, with this provider at this time: Yes The last office visit in the department: 02/15/24 Does the patient have a future office visit with this provider/department: Yes, 02/19/25 Yearly. Requested Prescriptions Pending Prescriptions Disp Refills atorvastatin (LIPITOR) 20 mg tablet 90 tablet 3 Sig: Take 1 tablet by mouth daily at bedtime. For cholesterol. Natalia Mederos MA January 01, 2025 8:33 AM [facility] 01-01-2025 Miscellaneous Notes Prescription Refill Information The patient has been identified by name and date of : Yes Caregiver verified no other encounters exist for this prescription request: Yes Caregiver confirmed with patient/requestor that no other refills are due, in the near future, with this provider at this time: Yes The last office visit in the department: 02/15/24 Does the patient have a future office visit with this provider/department: Yes, 02/19/25 Yearly. Requested Prescriptions Pending Prescriptions Disp Refills atorvastatin (LIPITOR) 20 mg tablet 90 tablet 3 Sig: Take 1 tablet by mouth daily at bedtime. For cholesterol. Natalia Mederos MA January 01, 2025 8:33 AM documented in this encounter [facility] 12-18-2024 Telephone encounter Note Prescription Refill Information The patient has been identified by name and date of : Yes Caregiver verified no other encounters exist for this prescription request: Yes Caregiver confirmed with patient/requestor that no other refills are due, in the near future, with this provider at this time: Yes The last office visit in the department: 02/15/24 Does the patient have a future office visit with this provider/department: Yes Requested Prescriptions Pending Prescriptions Disp Refills losartan (COZAAR) 50 mg tablet [Pharmacy Med Name: LOSARTAN POT TAB 50MG] 90 tablet 1 Sig: TAKE 1 TABLET ONCE DAILY Francisca Casper MA December 18, 2024 10:58 AM [facility] 12-18-2024 Miscellaneous Notes Prescription Refill Information The patient has been identified by name and date of : Yes Caregiver verified no other encounters exist for this prescription request: Yes Caregiver confirmed with patient/requestor that no other refills are due, in the near future, with this provider at this time: Yes The last office visit in the department: 02/15/24 Does the patient have a future office visit with this provider/department: Yes Requested Prescriptions Pending Prescriptions Disp Refills losartan (COZAAR) 50 mg tablet [Pharmacy Med Name: LOSARTAN POT TAB 50MG] 90 tablet 1 Sig: TAKE 1 TABLET ONCE DAILY Francisca Casper MA December 18, 2024 10:58 AM documented in this encounter [facility] 10-18-2024 Telephone encounter Note Scheduled with patient Start email sent [facility] Work Phone: 10-18-2024 Miscellaneous Notes Scheduled with patient Start email sent Patient called stating she needs to schedule her annual reclast. Please review order and advise. Thank you. documented in this encounter [facility] 10-17-2024 Telephone encounter Note Patient called stating she needs to schedule her annual reclast. Please review order and advise. Thank you. [facility] 09-22-2024 History of Present illness Narrative Radiology Service Progress Note PATIENT NAME: Eladia Tirado DATE OF SERVICE: September 22, 2024 TIME: 9:58 AM PATIENT IDENTITY VERIFICATION COMPLETED USING TWO (2) IDENTIFIERS: Name and Date of confirmed by patient verbally. FALL SCREENING: Has the patient had 2 falls in the last year or 1 fall with injury or currently using an Ambulatory Assistive Device (Walker, Cane, Wheelchair, Crutches, etc.)? No PATIENT GENDER DATA: Assigned female at . status: : No status: NO. PATIENT RELEVANT IMPLANT DATA REVIEWED: Not Applicable PATIENT PRESENTS WITH AN IMPLANTABLE OR ATTACHED CAN PATCHER: No RADIOLOGY DEPARTMENT: Bone Density PERIPHERAL IV DATA: Not applicable SIGNED BY: DON De Guzman) September 22, 2024 9:58 AM documented in this encounter [facility] 09-22-2024 Note HNO ID: [id number] Author: REZA DUONG RT (R) Service: ? Author Type: Technologist Type: Progress Notes Filed: 09/22/2024 10:05 Note Text: Radiology Service Progress Note PATIENT NAME: Eladia Tirado DATE OF SERVICE: September 22, 2024 TIME: 9:58 AM PATIENT IDENTITY VERIFICATION COMPLETED USING TWO (2) IDENTIFIERS: Name and Date of confirmed by patient verbally. FALL SCREENING: Has the patient had 2 falls in the last year or 1 fall with injury or currently using an Ambulatory Assistive Device (Walker, Cane, Wheelchair, Crutches, etc.)? No PATIENT GENDER DATA: Assigned female at . status: : No status: NO. PATIENT RELEVANT IMPLANT DATA REVIEWED: Not Applicable PATIENT PRESENTS WITH AN IMPLANTABLE OR ATTACHED CAN PATCHER: No RADIOLOGY DEPARTMENT: Bone Density PERIPHERAL IV DATA: Not applicable SIGNED BY: RT Gege(Pat) September 22, 2024 9:[address] [facility] 07-14-2024 Telephone encounter Note Prescription Refill Information The patient has been identified by name and date of : Yes Caregiver verified no other encounters exist for this prescription request: Yes Caregiver confirmed with patient/requestor that no other refills are due, in the near future, with this provider at this time: Yes The last office visit in the department: 02/15/2024 Does the patient have a future office visit with this provider/department: Yes, 02/19/2025 Requested Prescriptions Pending Prescriptions Disp Refills losartan (COZAAR) 50 mg tablet 90 tablet 1 Sig: Take 1 tablet by mouth once daily. ANH Norman July 14, 2024 9:26 AM [facility] 07-14-2024 Miscellaneous Notes Prescription Refill Information The patient has been identified by name and date of : Yes Caregiver verified no other encounters exist for this prescription request: Yes Caregiver confirmed with patient/requestor that no other refills are due, in the near future, with this provider at this time: Yes The last office visit in the department: 02/15/2024 Does the patient have a future office visit with this provider/department: Yes, 02/19/2025 Requested Prescriptions Pending Prescriptions Disp Refills losartan (COZAAR) 50 mg tablet 90 tablet 1 Sig: Take 1 tablet by mouth once daily. ANH Norman July 14, 2024 9:26 AM documented in this encounter [facility] 05-29-2024 Note HNO ID: [id number] Author: ÓSCAR CARDENAS MA Service: ? Author Type: Ham Marker Type: Progress Notes Filed: 05/29/2024 09:41 Note Text: POPULATION HEALTH NAVIGATION OUTREACH Action/May 29, 2024 AWV INITIATIVE PROTOCOL Reason for Outreach Care Gap/HCC or Scheduling Wellness Visits Care Gaps due: Medicare Annual Wellness Visit Patient Contacted: Unable or unnecessary to reach patient: Flipped existing appointment Updated appointment notes Navigation Signature: Óscar Cardenas MA May 29, 2024 9:[address] [facility] 05-29-2024 History of Present illness Narrative POPULATION HEALTH NAVIGATION OUTREACH Action/May 29, 2024 AWV INITIATIVE PROTOCOL Reason for Outreach Care Gap/HCC or Scheduling Wellness Visits Care Gaps due: Medicare Annual Wellness Visit Patient Contacted: Unable or unnecessary to reach patient: Flipped existing appointment Updated appointment notes Navigation Signature: Óscar Cardenas MA May 29, 2024 9:41 AM documented in this encounter [facility] 05-29-2024 Note Patient Outreach (MAO TNAV) ELADIA TIRADO ([id number]) 1945 F Date Time Provider Department 05/29/24 ÓSCAR CARDENAS During your visit today, we recorded the following information about you: Óscar Cardenas MA 05/29/2024 9:41 AM Signed POPULATION HEALTH NAVIGATION OUTREACH Action/FYI May 29, 2024 AWV INITIATIVE PROTOCOL Reason for Outreach Care Gap/HCC or Scheduling Wellness Visits Care Gaps due: Medicare Annual Wellness Visit Patient Contacted: Unable or unnecessary to reach patient: Flipped existing appointment Updated appointment notes Navigation Signature: Óscar Cardenas MA May 29, 2024 9:41 AM Allergies As of Date: 05/29/2024 (No Known Allergies) Date Reviewed: 02/15/2024 Reviewed by: Giovana Mujica MA - Fully Assessed Reason for Visit: Population Health Navigation Outreach [3910] Cmt: AWV INITIATIVE Prescriptions as of 05/29/2024 - atorvastatin (LIPITOR) 20 mg tablet Take 1 tablet by mouth daily at bedtime. For cholesterol. - losartan (COZAAR) 50 mg tablet Take 1 tablet by mouth once daily. - zoledronic acid (RECLAST) 5 mg/100 mL PREMIX piggyback Inject 100 mL intravenously every year. Patient should start on October 23, 2024. - calcium phosphate trib/vit D3 (CITRACAL + D3, CALCIUM PHOS, ORAL) Take 2 tablets by mouth once daily. - cholecalciferol, vitamin D3, (VITAMIN D3 ORAL) Take 2 tablets by mouth once daily. - MEDICATION, NON-DATABASE Aloe Gel - MEDICATION, NON-DATABASE Take by mouth once daily. Turmeric - omega-3 fatty acids(FISH OIL 500 MG CAP) Take one(1) capsule daily. - MULTIVITAMIN TAB Take one(1) tablet daily. Problem List As Of Date 05/29/2024 Noted Resolved BONE AND CARTILAGE DIS NOS [M89.9, M94.9] Hyperlipidemia, mixed [E78.2] HEMORRHOIDS NOS [K64.9] Internal hemorrhoids without mention of complic*10/29/2011 Family history of malignant neoplasm of gastroi*10/29/2011 Esophagitis, unspecified [K20.90] 10/29/2011 Dyslipidemia [E78.5] 11/16/2018 Medicare annual wellness visit, subsequent [Z00*11/16/2018 Osteopenia, senile [M85.80] 11/21/2019 Neck pain [M54.2] 01/25/2021 Hyperglycemia [R73.9] 01/25/2021 Spinal osteoarthritis [M47.9] 01/25/2021 Closed fracture of proximal end of right humeru*01/26/2022 Encounter Status:Closed by ÓSCAR CARDENAS on 05/29/24 [facility] 05-03-2024 History of Present illness Narrative Radiology Service Progress Note PATIENT NAME: Eladia Tirado DATE OF SERVICE: May 03, 2024 TIME: 2:07 PM PATIENT IDENTITY VERIFICATION COMPLETED USING TWO (2) IDENTIFIERS: Name and Date of confirmed by patient verbally. FALL SCREENING: Has the patient had 2 falls in the last year or 1 fall with injury or currently using an Ambulatory Assistive Device (Walker, Cane, Wheelchair, Crutches, etc.)? No PATIENT GENDER DATA: Female. status: : No status: NO. PATIENT RELEVANT IMPLANT DATA REVIEWED: Not Applicable PATIENT PRESENTS WITH AN IMPLANTABLE OR ATTACHED CAN PATCHER: No RADIOLOGY DEPARTMENT: Mammography PERIPHERAL IV DATA: Not applicable SIGNED BY: Ekaterina Rodriguez May 03, 2024 2:07 PM documented in this encounter [facility] 05-03-2024 Note HNO ID: [id number] Author: SANTINO ESCOBAR Mammo Tech Service: ? Author Type: Motel Operator Type: Progress Notes Filed: 05/03/2024 14:08 Note Text: Radiology Service Progress Note PATIENT NAME: Eladia Tirado DATE OF SERVICE: May 03, 2024 TIME: 2:07 PM PATIENT IDENTITY VERIFICATION COMPLETED USING TWO (2) IDENTIFIERS: Name and Date of confirmed by patient verbally. FALL SCREENING: Has the patient had 2 falls in the last year or 1 fall with injury or currently using an Ambulatory Assistive Device (Walker, Cane, Wheelchair, Crutches, etc.)? No PATIENT GENDER DATA: Female. status: : No status: NO. PATIENT RELEVANT IMPLANT DATA REVIEWED: Not Applicable PATIENT PRESENTS WITH AN IMPLANTABLE OR ATTACHED CAN PATCHER: No RADIOLOGY DEPARTMENT: Mammography PERIPHERAL IV DATA: Not applicable SIGNED BY: Santino Escobar [employer] May 03, 2024 2:[address] [facility] 05-02-2024 Telephone encounter Note Pharmacy notified Giovana Mujica MA [facility] 05-02-2024 Miscellaneous Notes Pharmacy notified Giovana Mujica MA Rx says to start on October 23, 2024. Please clarify this with pharmacy. Thank you, Ni Wilde APRN.GLOBAL MARKETING MANAGER Please review. Giovana Mujica MA documented in this encounter [facility] 05-01-2024 Telephone encounter Note Rx says to start on October 23, 2024. Please clarify this with pharmacy. Thank you, Ni Wilde APRN.GLOBAL MARKETING MANAGER [facility] Work Phone: 04-28-2024 Telephone encounter Note Order placed. Marcie Medina APRN.GLOBAL MARKETING MANAGER [facility] 04-28-2024 Miscellaneous Notes Order placed. Marcie Medina APRN.GLOBAL MARKETING MANAGER Please see pt message. Order pended for review. Giovana Mujica MA documented in this encounter [facility] 04-28-2024 Telephone encounter Note Please see pt message. Order pended for review. Giovana Mujica MA [facility] 04-28-2024 Telephone encounter Note Please review. Giovana Mujica MA [facility] 03-27-2024 Telephone encounter Note Pt notified via [employer], told she could call in and schedule. Oriana Murrell MA [facility] 03-27-2024 Miscellaneous Notes Pt notified via App[employer]nsure, told she could call in and schedule. Oriana Murrell MA Order placed to schedule Abilio Mcbride DO Pt sends mychart messages below I need to schedule a bone density screening. It will have to be after April 26, 2024 and before May 16, 2024. documented in this encounter [facility] 03-27-2024 Telephone encounter Note Order placed to schedule Abilio Mcbride DO [facility] 03-27-2024 Telephone encounter Note Pt sends mychart messages below I need to schedule a bone density screening. It will have to be after April 26, 2024 and before May 16, 2024. [facility] 03-02-2024 Telephone encounter Note I'm happy with these readings, they look good. Let's continue the losartan 50mg daily. Marcie Medina APRN.CNP [facility] 03-02-2024 Miscellaneous Notes I'm happy with these readings, they look good. Let's continue the losartan 50mg daily. Marcie Medina APRN.CNP Please see BP readings Giovana Mujica MA documented in this encounter [facility] 03-02-2024 Telephone encounter Note Please see BP readings Giovana Mujica MA [facility] 02-21-2024 Telephone encounter Note Pt reports she gets [facility]vastatin through [facility] and rx in med chart has [facility] as the pharmacy. Pt reports [facility] states she needs a new rx. Prescription Refill Information The patient has been identified by name and date of : Yes Caregiver verified no other encounters exist for this prescription request: Yes Caregiver confirmed with patient/requestor that no other refills are due, in the near future, with this provider at this time: Yes The last office visit in the department: 02/15/24 Does the patient have a future office visit with this provider/department: Yes 02/19/25 Requested Prescriptions Pending Prescriptions Disp Refills atorvastatin (LIPITOR) 20 mg tablet 90 tablet 3 Sig: Take 1 tablet by mouth daily at bedtime. For cholesterol. Crystal Ding LPN February 21, 2024 9:26 AM [facility] 02-21-2024 Miscellaneous Notes Pt reports she gets [facility]vastatin through [facility] and rx in med chart has [facility] as the pharmacy. Pt reports [facility] states she needs a new rx. Prescription Refill Information The patient has been identified by name and date of : Yes Caregiver verified no other encounters exist for this prescription request: Yes Caregiver confirmed with patient/requestor that no other refills are due, in the near future, with this provider at this time: Yes The last office visit in the department: 02/15/24 Does the patient have a future office visit with this provider/department: Yes 02/19/25 Requested Prescriptions Pending Prescriptions Disp Refills atorvastatin (LIPITOR) 20 mg tablet 90 tablet 3 Sig: Take 1 tablet by mouth daily at bedtime. For cholesterol. Crystal Ding LPN February 21, 2024 9:26 AM documented in this encounter [facility] 02-19-2024 Telephone encounter Note Prescription Refill Information The patient has been identified by name and date of : Yes Caregiver verified no other encounters exist for this prescription request: Yes Caregiver confirmed with patient/requestor that no other refills are due, in the near future, with this provider at this time: Yes The last office visit in the department: 02/15/24 Does the patient have a future office visit with this provider/department: Yes, 02/19/25 Requested Prescriptions Pending Prescriptions Disp Refills atorvastatin (LIPITOR) 20 mg tablet 90 tablet 3 Sig: Take 1 tablet by mouth daily at bedtime. For cholesterol. *Last rx written 05/24/23 #90 with 3 refills. Pt is not due for refill until May. MC message to pt notifying of the same. Mirza Warner LPN February 19, 2024 12:02 PM [facility] 02-19-2024 Miscellaneous Notes Prescription Refill Information The patient has been identified by name and date of : Yes Caregiver verified no other encounters exist for this prescription request: Yes Caregiver confirmed with patient/requestor that no other refills are due, in the near future, with this provider at this time: Yes The last office visit in the department: 02/15/24 Does the patient have a future office visit with this provider/department: Yes, 02/19/25 Requested Prescriptions Pending Prescriptions Disp Refills atorvastatin (LIPITOR) 20 mg tablet 90 tablet 3 Sig: Take 1 tablet by mouth daily at bedtime. For cholesterol. *Last rx written 05/24/23 #90 with 3 refills. Pt is not due for refill until May. MC message to pt notifying of the same. Mirza Warner LPN February 19, 2024 12:02 PM documented in this encounter [facility] 02-15-2024 Instructions Marcie Medina APRN.GLOBAL MARKETING MANAGER - 02/15/2024 9:57 AM EDT Check your BP once daily for the next 2 weeks, send me a EnhanCVt message in 2 weeks with the results. Increase your losartan to 50mg daily. documented in this encounter [facility] 02-15-2024 History of Present illness Narrative Images from the original note were not included. Eladia Tirado is a 78 year old female here for a Medicare wellness visit. Medicare Health Risk Assessment General Health Exercise: Minutes/Day 50 min Exercise: Days/Week 5 days Alcohol: Daily Use 4 or more times a week Alcohol: Drinks/Day 1 or 2 Alcohol: 6 or more drinks Never Feel off balance No Concerns: Teeth/Dentures No Concerns: Sexual function No Troubled by feelings None of the above Frequency: Eating healthy diet More than half the days ADLs requiring help None of the above Safety precautions in home/vehicle Yes Smoke, vape, chews tobacco No Difficulty hearing No Difficulty seeing No Current Providers Specialists: I have reviewed specialist-related care of the patient in the medical record. Medical/Family history review Reviewed and updated problem list, medical/surgical/family/social history, medications, and allergies. Opioid use review Opioid Medications (last 90 days) No data to display Anxiety/Depression screening PHQ-9 Score: 0. Recommendation: no further intervention at this time Cognitive screening Mini Cog Score: 5 Cognitive screening reviewed and No further action needed (score 3-5). Functional Observation Was the patient's Timed Up & Go test unsteady or >= 12 seconds? No Advance Care Planning Surrogate decision maker and/or advance care plan documented Chris Tirado, secondary daughter Kym Sainz Measurements BP 158/92 (BP Site: Left Arm, BP Position: Sitting, BP Cuff Size: Regular Adult) Pulse 71 Resp 16 Wt 57.8 kg (127 lb 6.8 oz) SpO2 99% BMI 21.89 kg/m Vision Screening: Follows with optometry/ophthalmology Assessment/Plan Medicare annual wellness visit, subsequent (Z00.00) - Counseled on healthy diet and regular exercise - Fall avoidance information provided - Personalized prevention plan provided Marcie Medina APRN.CNP documented in this encounter [facility] 10-19-2023 Note Addended by: MARCIE BEJARANO on: 10/19/2023 12:04 PM Modules accepted: Orders [facility] 10-19-2023 Miscellaneous Notes Addended by: MARCIE MEDINA on: 10/19/2023 12:04 PM Modules accepted: Orders The following approved medication requests have been transmitted electronically. Requested Prescriptions Signed Prescriptions Disp Refills zoledronic acid (RECLAST) 5 mg/100 mL PREMIX piggyback 100 mL 0 Sig: Inject 100 mL intravenously one time only for 1 dose. Authorizing Provider: MARCIE MEDINA APRN.CNP documented in this encounter [facility] 10-19-2023 Telephone encounter Note The following approved medication requests have been transmitted electronically. Requested Prescriptions Signed Prescriptions Disp Refills zoledronic acid (RECLAST) 5 mg/100 mL PREMIX piggyback 100 mL 0 Sig: Inject 100 mL intravenously one time only for 1 dose. Authorizing Provider: MARCIE MEDINA APRN.GLOBAL MARKETING MANAGER [facility] 10-05-2023 Telephone encounter Note Ordered Jayleen De La Cruz PA-C [facility] Work Phone: 10-05-2023 Miscellaneous Notes Ordered Jayleen De La Cruz PA-C Order pended, please file Ashly Nieves MA Spoke with patient and scheduled. Please file STAT BMP to be drawn with infusion. Ernestine Nelson Order placed Abilio Mcbride DO I am ok with ordering this reclast Please schedule her appt in HemOnc department for infusion Abilio Mcbride DO Pt called in asking about the reclast infusion. She was asking if Dr Mcbride orders this or if she would need to go through Dr Randall in [place] to have it ordered. She states she went to him to have the infusion in [place] last time. Please call and advise. Pt calling and she reports had a relcast injection last 10/05/22. She has not heard anything and wants to get it again. Please advise pt on what to do. Orders will need to be placed and pt to get IV in Hemoc/Onc. Linnea Hairston LPN documented in this encounter [facility] 10-05-2023 Telephone encounter Note Order pended, please file Ashly Nieves MA [facility] 10-05-2023 Telephone encounter Note Spoke with patient and scheduled. Please file STAT BMP to be drawn with infusion. Ernestine Nelson [facility] 10-05-2023 Telephone encounter Note Patient has been identified by name and date of : Yes Patient phones for refill(s): Requested Prescriptions Pending Prescriptions Disp Refills losartan (COZAAR) 25 mg tablet 90 tablet 1 Sig: Take 1 tablet by mouth once daily. For blood pressure Date of last office visit in primary care: 01/27/2023 Date of next office visit in primary care: 01/31/2024 Please advise. Thank you. ANH Norman. [facility] 10-05-2023 Miscellaneous Notes Patient has been identified by name and date of : Yes Patient phones for refill(s): Requested Prescriptions Pending Prescriptions Disp Refills losartan (COZAAR) 25 mg tablet 90 tablet 1 Sig: Take 1 tablet by mouth once daily. For blood pressure Date of last office visit in primary care: 01/27/2023 Date of next office visit in primary care: 01/31/2024 Please advise. Thank you. ANH Norman. documented in this encounter [facility] 10-04-2023 Telephone encounter Note Pharmacy request denied. Patient needs to contact office for refills. Ashly Nieves MA [facility] 10-04-2023 Miscellaneous Notes Pharmacy request denied. Patient needs to contact office for refills. Ashly Nieves MA documented in this encounter [facility] 10-01-2023 Telephone encounter Note Order placed Abilio Mcbride DO [facility] 09-29-2023 Telephone encounter Note I am ok with ordering this reclast Please schedule her appt in HemOnc department for infusion Abilio Mcbride DO [facility] 09-29-2023 Telephone encounter Note Pt called in asking about the reclast infusion. She was asking if Dr Mcbride orders this or if she would need to go through Dr Randall in [place] to have it ordered. She states she went to him to have the infusion in [place] last time. Please call and advise. [facility] 09-15-2023 Telephone encounter Note Pt calling and she reports had a relcast injection last 10/05/22. She has not heard anything and wants to get it again. Please advise pt on what to do. Orders will need to be placed and pt to get IV in Hemoc/Onc. Linnea Hairston LPN [facility] 04-30-2023 History of Present illness Narrative Radiology Service Progress Note PATIENT NAME: Eladia Tirado DATE OF SERVICE: April 30, 2023 TIME: 10:46 AM PATIENT IDENTITY VERIFICATION COMPLETED USING TWO (2) IDENTIFIERS: Name and Date of confirmed by patient verbally. FALL SCREENING: Has the patient had 2 falls in the last year or 1 fall with injury or currently using an Ambulatory Assistive Device (Walker, Cane, Wheelchair, Crutches, etc.)? No PATIENT GENDER DATA: Female. status: : No status: NO. PATIENT RELEVANT IMPLANT DATA REVIEWED: Not Applicable RADIOLOGY DEPARTMENT: Mammography PERIPHERAL IV DATA: Not applicable SIGNED BY: Ekaterina Harrington April 30, 2023 10:46 AM documented in this encounter [facility] 04-23-2023 Miscellaneous Notes Left detailed message to a secured line. Nimco Krishna Order placed. Please help to schedule. Thank you, Ni Wilde APRN.GLOBAL MARKETING MANAGER Patient calls and is asking if mammogram order can be placed. Patient is leaving for [place] and will not be back to September. Patient will have it done then. Patient has not had any issues with breasts. Please review and advise, Ernestine Titus RN documented in this encounter [facility] 04-19-2023 Miscellaneous Notes Chuy--01/27/23 Nov--01/31/24 Last refill--01/27/23 90 with 1 refill Last labs--01/23/23 documented in this encounter [facility] 01-27-2023 History of Present illness Narrative Eladia Tirado is a 77 year old female here for a Medicare wellness visit and routine physical. Eladia is an established patient of Dr. Mcbride, and myself. Concerns today.. HTN -- She states compliant with current blood pressure medication(s): losartan. She does not check BP at home. She denies chest pain, shortness of breath, palpitations, dizziness, leg edema, headaches, or vision changes. Last 14 Encounter BP Readings: Date: BP: 01/27/2023 132/70 10/05/2022 172/79 06/24/2022 160/78[Nataly notified of blood pressure.[ 06/16/2022 150/74 05/20/2022 204/99 01/26/2022 130/84 01/13/2022 124/80 01/24/2021 112/60 11/20/2019 130/80 11/16/2018 130/80 11/15/2017 138/80 05/06/2017 124/62 11/12/2016 140/70[irregular[ 10/02/2016 128/67 HLD-- On lipitor daily. Component Latest Ref Rng & Units 01/23/2023 Cholesterol, Total <200 mg/dL 197 Triglyceride <150 mg/dL 77 HDL Cholesterol >39 mg/dL 99 Non HDL Cholesterol <130 mg/dL 98 Fasting Time hrs 11 VLDL Cholesterol <30 mg/dL 15 TC:HDL Ratio <5.10 1.99 LDL Cholesterol <100 mg/dL 83 LDL:HDL Ratio <2.54 0.84 Tries to exercise routinely with walking. Eats healthy, well-balanced meals 3x per day. Osteoporosis -- Getting the once yearly infusion. Tolerating well, no reactions whatsoever. Health Risk Assessment In general, health is: Very good Concerns with balance: Not at all Concerns with teeth or dentures: Not at all Concerns with sexual function: Not at all Ashley anxious, stressed, angry, irritable, lonely, isolated, or had thoughts of hurting themself: Not at all Has little interest or pleasure in doing things: Not at all Bothered by feeling down, depressed, or hopeless: Not at all Needs help with grocery shopping, cooking, housework, bathing, grooming, dressing, eating, sitting or standing, walking, using the toilet, handling finances, taking medications, using the telephone, or driving: No Following safety precautions in the home environment and vehicle: removed throw rugs from floors, installed grab bars in the bathroom, handrails in stairwells, having adequate lighting, wearing seatbelt at all times?: Yes Smokes cigarettes, vapes, or chew tobacco: No Eats healthy foods including fruits, vegetables, whole grains, and fiber-rich foods: More than half the days Number of days per week engages in exercise: 5 days Average alcohol consumption: 4 or more times a week Current Providers Specialists: I have reviewed specialist-related care of the patient in the medical record. Medical/Family history review Reviewed and updated problem list, medical/surgical/family/social history, medications, and allergies. Opioid use review Patient is not currently using opioids. Depression screening Depression Screening PHQ-2 Score 01/26/2022 0 Depression screening tool completed and reviewed. Based on score and interview, patient is not at risk for depression. Screening tool discussed with patient, and I recommended no further intervention at this time. Cognitive screening Mini Cog Score: Score: 5 Functional Observation Was the patient's timed Up & Go test unsteady or ? 12 seconds? Yes Advance Care Planning End of Life planning discussed, including patient's advanced directive wishes: Yes Measurements Ht 5' 3.976 (1.63m) Wt 128 lb (58.1kg) BMI 21.99 kg/(m^2). Visual acuity (required for Welcome to Medicare): follows with optometry/ophthalmology Hearing Evaluation: within normal limits Previous Medical History PAST MEDICAL HISTORY Diagnosis Date Arthritis Disorder of bone and cartilage, unspecified Esophagitis, unspecified Family history of malignant neoplasm of gastrointestinal tract Hypertension Internal hemorrhoids without mention of complication Other and unspecified hyperlipidemia Seasonal allergies Unspecified hemorrhoids without mention of complication Hemorrhoids Previous Surgical History PAST SURGICAL HISTORY Procedure Laterality Date COLONOSCOPY 12/11/2016 normal, repeat in 5 yrs due to family history COLONOSCOPY 06/16/2022 COLONOSCOPY FLX DX W/COLLJ SPEC WHEN PFRMD 2002 Colonoscopy COLONOSCOPY FLX DX W/COLLJ SPEC WHEN PFRMD 10/29/2011 repeat 5 years EGD 12/11/2016 gastritis and fundic gland polyps EGD 06/16/2022 EYE SURGERY HX FOOT SURGERY HX Right 08/2015 FRACTURE SURGERY SKIN BIOPSY HX Family History FAMILY HISTORY Problem Relation Age of Onset Hypertension Mother Lipids Mother Blood Disease Mother Heart Mother CAD, CABG Kidney Disease Mother ESRD, on HD Cancer Father brain Heart Brother Heart Sister CAD, smoker Cancer Maternal Grandfather colon Cancer Maternal Aunt colon Colon Cancer Brother 50 Colon Cancer Brother 60 Patient Allergies ALLERGIES No Known Allergies Current Medications Current Outpatient Medications on File Prior to Visit Medication Sig calcium phosphate trib/vit D3 (CITRACAL + D3, CALCIUM PHOS, ORAL) Take 2 tablets by mouth once daily. atorvastatin (LIPITOR) 20 mg tablet Take 1 tablet by mouth daily at bedtime. For cholesterol. MEDICATION, NON-DATABASE Aloe Gel MEDICATION, NON-DATABASE Take by mouth once daily. Turmeric omega-3 fatty acids(FISH OIL 500 MG CAP) Take one(1) capsule daily. MULTIVITAMIN TAB Take one(1) tablet daily. cholecalciferol, vitamin D3, (VITAMIN D3 ORAL) Take 2 tablets by mouth once daily. No current facility-administered medications on file prior to visit. Social History Social History Tobacco Use Smoking status: Never Smokeless tobacco: Never Vaping Use Vaping Use: Never used Substance Use Topics Alcohol use: Yes Alcohol/week: 2.0 standard drinks of alcohol Types: 2 Glasses of wine per week Drug use: No REVIEW OF SYSTEMS: as above Reviewed relevant PMHx, PSHx, Social Hx, current medications and allergies. Review of Symptoms REVIEW OF SYSTEMS See HPI. EXAM: BP 132/70 (BP Site: Left Arm, BP Position: Sitting, BP Cuff Size: Regular Adult) Pulse 69 Resp 12 Ht 162.5 cm (5' 3.98) Wt 58.1 kg (128 lb) SpO2 97% BMI 21.99 kg/m General Appearance: Well appearing, alert, in no acute distress, well-hydrated, well nourished.. Skin: Skin color, texture, turgor normal, no suspicious rashes or lesions. Head: Normocephalic, no masses, lesions, tenderness or abnormalities. Neck: Supple, no adenopathy; thyroid symmetric, normal size, no bruits. Back:no pain to palpation of vertebrae, good flexion and extension, good range of motion, no muscle tenderness, reflexes are 2+ and symmetric, motor and sensory appear to be normal, negative SLR test, no evidence of scoliosis Lungs: Lungs clear to auscultation. No wheezing, rhonchi, rales.. Heart: RRR without murmur, gallop, or rubs. No ectopy. Abdomen: Normal abdominal exam, Abdomen soft, non-tender. Bowel sounds normal. No masses, organomegaly. Neurologic: Gait normal. Reflexes normal and symmetric. Sensation grossly intact.. Health Maintenance List Influenza Vaccine(1) due on 11/14/2023 Covid-19 Vaccine(4 - Moderna series) due on 01/28/2024 DTaP,Tdap,Td Vaccine(2 - Td or Tdap) due on 10/22/2025 Diabetes Screening due on 01/23/2026 Colorectal Cancer Screening due on 06/16/2027 Bone Density Screening Completed Advance Directive Discussion Completed Depression Assessment Completed Hepatitis C Screening Completed Shingrix Vaccine Completed Pneumococcal Vaccine: 65+ Completed Mammogram Screening Discontinued Assessment/Plan Medicare annual wellness visit, subsequent (Z00.00) - Counseled on healthy diet and regular exercise - Fall avoidance - Lipid panel - Depression screening ASSESSMENT/PLAN: 1. Medicare annual wellness visit, subsequent - ICD9: V70.0, ICD10: Z00.00 (primary diagnosis) - Counseled on healthy diet and regular exercise - Calcium intake with supplements or by diet of 1000 mg/day for under 50, 2379-1225 mg/day for 50+ - Depression screening tool completed and reviewed with patient. Based on score and interview, patient is not at risk for depression and recommended no further intervention at this time. - Follow up for annual exam in one year 2. Wellness examination - ICD9: V70.0, ICD10: Z00.00 - Counseled on healthy diet and regular exercise - Calcium intake with supplements or by diet of 1000 mg/day for under 50, 2506-1433 mg/day for 50+ - Depression screening tool completed and reviewed with patient. Based on score and interview, patient is not at risk for depression and recommended no further intervention at this time. - Follow up for annual exam in one year 3. Hyperlipidemia, mixed - ICD9: 272.2, ICD10: E78.2 - Controlled - Continue current medications - Counseled on healthy diet and regular exercise - Follow up in 1 year, sooner should any other issues arise. 4. Hyperglycemia - ICD9: 790.29, ICD10: R73.9 Stable. Not within diabetes range. hgA1c last year was 5.5. Will recheck hgA1c next year. 5. Osteoporosis, unspecified osteoporosis type, unspecified pathological fracture presence - ICD9: 733.00, ICD10: M81.0 - continue current tx - Reviewed the need for Calcium and Vitamin D supplements and weight bearing exercise as tolerated 6. Hypertension, unspecified type - ICD9: 401.9, ICD10: I10 - Controlled - Continue current medications - Recommend home blood pressure monitoring, to bring results to next visit - Encouraged sodium restriction, DASH or Mediterranean diet - Recommend regular aerobic exercise RTO annually and as needed. Prescription instructions reviewed with patient as applicable. Potential red flag symptoms discussed with the patient. Reviewed appropriate action plan to take if red flag symptoms occur. Patient agreeable to treatment plan. Ni José APRN.GLOBAL MARKETING MANAGER [address] [place] [address] documented in this encounter [facility] 01-21-2023 Miscellaneous Notes Pt notified and voiced understanding. Oriana Murrlel MA A few routine labs ordered. Should be fasting for these. Thank you, Ni Wilde APRN.GLOBAL MARKETING MANAGER Patient calling she has medicare wellness appt scheduled for 01/27/2023 with PCP. Patient had lots of lab work done early May 2022, prior to her Endocrinology appt, patient asking if she would need nay more labs done prior to her appt ? Last lipid done 01/2022. Please advise documented in this encounter [facility] 11-09-2022 Miscellaneous Notes Chuy--02/23/22 Nov--01/27/23 Last refill--08/24/22 90 with 1 refill Last labs--10/05/22 documented in this encounter [facility] 09-28-2022 Miscellaneous Notes 1st-time treatment report. The patient is currently being seen for a non-oncology regimen. No navigator services are needed at this time. documented in this encounter [facility] 08-31-2022 Miscellaneous Notes Duplicate documented in this encounter [facility] 08-24-2022 Miscellaneous Notes Last office visit: 02/23/22 F/u scheduled: none Oriana Murrell Ma documented in this encounter [facility] 06-24-2022 Instructions Nataly Navarro PA-C - 06/24/2022 10:19 AM EST The following instructions are important for you related to your office visit today with the [facility]. INSTRUCTIONS FOLLOWING A NORMAL COLONOSCOPY W/ FAMILY HX COLON CANCER 5YR I discussed with you the findings of your colonoscopy. Since there were no worrisome abnormalities, I recommend you undergo repeat endoscopic screening every 5 years due to your family history of colon cancer. This is the current recommendation for colon cancer screening. If you note bleeding, change in bowel habits, or other suspicious colon related symptoms before that time, those symptoms should be evaluated as necessary. INSTRUCTIONS FOR PEPTIC ULCER DISEASE - ESOPHAGITIS I discussed with you the findings of your upper endoscopy. Your upper endoscopy demonstrated esophagitis Esophagitis may be a form of peptic irritation, with acid moving from the stomach to the esophagus (gastroesophageal reflux) Factors that increase acid production include smoking and stress. If you smoke, stopping smoking will often cure these issues without needing other medications. Over the counter medications including antiacids and acid reducing medications including H2 blockers (Zantac and the like) and proton pump inhibitors (prilosec, prevacid and the like) neutralize or prevent acid production. Prescription strength proton pump inhibitors (PPIs) may be necessary if your symptoms persist. Carafate may be added to PPI treatment in refractory cases. Avoiding smoking, alcohol and antiinflammatory medications are important in the successful treatment of reflux esophagitis and peptic diseases. Other factors that contribute to GERD and esophagitis are being overweight, eating large meals before laying down and certain foods. Weight loss will help improve many GERD complaints. Remaining upright after eating large meals and having a small supper will also help symptoms. Avoiding food that contribute to reflux - chocolate, caffeine, cheddar cheese may also help. Follow up upper endoscopy may be recommended to assure healing of the esophagus. New or worsening symptoms such are epigastric pain, burning, difficulty swallowing or food sticking should be relayed to your physician. Feeling full early after eating, or black, tarry, foul smelling stools are also worrisome. If you have any difficulties or concerns, you should contact our office immediately. If you note any additional difficulties, questions, or concerns, you should contact our office immediately @ [phone] and ask to be transferred to the General Surgery department. documented in this encounter [facility] 06-24-2022 History of Present illness Narrative FOLLOW UP VISIT - ENDOSCOPY NAME: Eladia Mcwilliams [facility] NO.: [id number] DATE OF SERVICE: 06/24/2022 : 1945 REFERRING PHYSICIAN: Abilio Mcbride DO Eladia is a patient I am following with Dr. Astudillo for dysphagia, GERD, family history of colon cancer and screening colonoscopy. Dr. Astudillo performed upper and lower endoscopy on 06/16/22. The patient was found to have gastritis, normal appearing esophagus, small hiatal hernia. Colonoscopy was normal. Pathology demonstrated: FINAL DIAGNOSIS A. Stomach, biopsy: - Gastric mucosa with no significant pathologic abnormality. B. Mid esophagus, biopsy: - Squamous mucosa with no significant pathologic abnormality. C. Distal esophagus, biopsy: - Squamous mucosa with no significant pathologic abnormality. The patient notes no new complaints since the procedure. VITALS: Blood pressure 160/78, pulse 74, temperature 36.7 C (98 F), temperature source Temporal, resp. rate 14, height 160 cm (5' 3), weight 58.5 kg (129 lb), SpO2 98 %. General: patient is alert, cooperative, pleasant and in no acute distress On examination, the abdomen is benign. Assessment IMPRESSION: GERD, gastritis, normal colonoscopy with family history of colon cancer PLAN: The operative findings and pathology report were reviewed with the patient, and the patient has had the opportunity to ask questions and have questions answered. If the patient notes any problems or changes in bowel function, the patient should contact me immediately. Otherwise I recommend follow up endoscopy in 5 years due to family history. HM updated and recall letter generated. Reviewed dietary and lifestyle modifications for GERD and gastritis, in addition to PPI Patient verbalized understanding of all above and agreed with the plan Diagnoses: (Z80.0) Family history of colon cancer (primary encounter diagnosis) (K21.9) GERD without esophagitis (K44.9) Hiatal hernia (K29.30) Chronic superficial gastritis without bleeding I spent a total of 25 minutes on the date of the service which included preparing to see the patient, [id number] patient care, completing clinical documentation, obtaining and/or reviewing separately obtained history, counseling and educating the patient/family/caregiver, independently interpreting results (not separately reported), and communicating results to the patient/family/caregiver. Nataly Navarro PA-C documented in this encounter [facility] 06-16-[address] Astudillo at bedside to review results of procedure with patient. Arrived in phase II via cart in left lateral position, eyes open, alert to self and event, skin warm and dry, respirations regular and unlabored, denies pain or nausea. Abdomen soft and non distended. Resting comfortably on left side. documented in this encounter [facility] 06-16-2022 History and physical note Images from the original note were not included. HISTORY AND PHYSICAL Eladia Tirado 1945 REFERRING PHYSICIAN: Scar Astudilol MD CHIEF COMPLAINT: Consult (EGD and colonoscopy consult) HPI: The patient is a 76 year old female referred for endoscopy. Eladia notes family history of colon cancer and is due for high-risk screening colonoscopy. Patient denies any change in bowel habits, weight changes, blood in stools, black tarry stools or abdominal pain. The patient NOTES issues with reflux and history of gastritis, is wanting EGD rechecked at same setting as colonoscopy. Eladia has undergone prior endoscopy. Most recent colonoscopy 12/11/[address] Astudillo, no concerning findings. Repeat colonoscopy was recommended in 5 years due to family history of colon cancer. She also had EGD at that time showing multiple gastric polyps and GERD. Patient denies chest pain, shortness of breath or recent hospitalizations. Denies problems with sedation in the past. PAST MEDICAL HISTORY PAST MEDICAL HISTORY Diagnosis Date Disorder of bone and cartilage, unspecified Esophagitis, unspecified Family history of malignant neoplasm of gastrointestinal tract Internal hemorrhoids without mention of complication Other and unspecified hyperlipidemia Seasonal allergies Unspecified hemorrhoids without mention of complication Hemorrhoids PAST SURGICAL HISTORY PAST SURGICAL HISTORY Procedure Laterality Date COLONOSCOPY 12/11/2016 normal, repeat in 5 yrs due to family history COLONOSCOPY FLX DX W/COLLJ SPEC WHEN PFRMD 2002 Colonoscopy COLONOSCOPY FLX DX W/COLLJ SPEC WHEN PFRMD 10/29/11 repeat 5 years EGD 12/11/2016 gastritis and fundic gland polyps FOOT SURGERY HX Right 08/2015 CURRENT MEDICATIONS Current Outpatient Medications Medication Sig ibuprofen (ADVIL) 200 mg tablet Take 600 mg by mouth every 6 hours as needed for pain. cholecalciferol, vitamin D3, (VITAMIN D3 ORAL) Take 2 tablets by mouth once daily. MEDICATION, NON-DATABASE Aloe Gel MEDICATION, NON-DATABASE Tumeric atorvastatin (LIPITOR) 20 mg tablet Take 1 tablet by mouth daily at bedtime. For cholesterol. meloxicam (MOBIC) 15 mg tablet Take 1 tablet by mouth once daily. As needed for neck pain, Take with food. famotidine (PEPCID ORAL) Take 20 mg by mouth. omega-3 fatty acids(FISH OIL 500 MG CAP) Take one(1) capsule daily. MULTIVITAMIN TAB Take one(1) tablet daily. No current facility-administered medications for this visit. ALLERGIES: Patient has no known allergies. PERSONAL HISTORY: SOCIAL HISTORY Social History Tobacco Use Smoking status: Never Smokeless tobacco: Never Vaping Use Vaping Use: Never used Substance Use Topics Alcohol use: Yes Comment: glass of wine daily Drug use: No FAMILY HISTORY: FAMILY HISTORY FAMILY HISTORY Problem Relation Age of Onset Hypertension Mother Lipids Mother Blood Disease Mother Heart Mother CAD, CABG Kidney Disease Mother ESRD, on HD Cancer Father brain Heart Brother Heart Sister CAD, smoker Cancer Maternal Grandfather colon Cancer Maternal Aunt colon Colon Cancer Brother 50 Colon Cancer Brother 60 REVIEW OF SYMPTOMS: The review of systems data was entered by the nurse and reviewed by me Nursing Notes: Charissa Shaffer RN 01/13/2022 11:25 AM Signed REVIEW OF SYSTEMS: General: The patient denies fatigue, denies weight loss, denies weight gain, denies feeling hot, and denies feelings of cold. Eyes: The patient denies glaucoma, denies eye injury/surgery, wears glasses or contacts. Ear/Nose/Throat: The patient denies allergies, NOTES hayfever, denies ear infections, and denies bloody noses. Cardiovascular: The patient denies chest pain, denies heart disease, denies high blood pressure,denies cardiac stent, denies prior heart attack, denies irregular heart beat, NOTES high cholesterol, denies poor circulation, denies heart failure, other cardiac issues, denies claudication, denies cold feet, denies peripheral arterial stent. Respiratory: The patient denies tuberculosis, denies pneumonia, denies frequent cough, denies pulmonary embolism, denies shortness of breath, and denies coughing up blood. Gastrointestinal: The patient denies difficulty swallowing, NOTES acid reflux, denies ulcers, denies vomiting, denies jaundice/hepatitis, denies gallbladder problems, denies black or tarry stools, denies hemorrhoids, denies bleeding from rectum, denies diverticulitis, denies constipation, NOTES diarrhea, denies loss of stool control, and denies hernias. Kidney/Bladder: The patient denies kidney stones, denies urine infections, and denies bloody urine. Skin: The patient denies a history of skin cancer, denies bleeding/changing moles, and denies a history of skin rash. Neurologic: The patient denies a history of epilepsy/convulsions, denies headaches, denies head/spinal injuries, and denies stroke/TIA. Psychiatric: The patient denies psychiatric medications, denies depression, and denies voices, denies substance abuse. Endocrine: The patient denies thyroid disorders, denies diabetes, and denies hormonal problems. Hematologic: The patient denies a history of bruising, denies bleeding, and denies anemia, denies blood clots. Infections: The patient denies a history of measles and mumps, denies rheumatic fever, and denies sexually transmitted diseases. Musculoskeletal: The patient denies back pain/injury, denies back problems, denies sciatica, denies knee/foot trouble, NOTES arthritis, or denies gout. When was patient's last Mammogram screening? 02/13/2021 Last Colonoscopy: 2017 Charissa Shaffer RN I have confirmed and edited as necessary, the PFSH and ROS obtained by others. Nataly Navarro PA-C PHYSICAL EXAMINATION: General: The patient is 76 year old female, well nourished, well hydrated in no acute distress. The patient is oriented to time, place, and person. VITALS: Blood pressure 124/80, pulse 74, temperature 36.7 C (98 F), height 162.6 cm (5' 4), weight 58.1 kg (128 lb), SpO2 98 %. There is no height or weight on file to calculate BMI. HEENT: Normal cephalic, ataumatic, pupils are equally round, sclera are anicteric, mucous membranes are moist, oropharynx is clear. Neck has no masses, asymmetry or lymphadenopathy. Respiratory: Clear to auscultation and percussion. Normal respiratory excursion and pattern. Cardiac: Examination is regular rate and rhythm. Normal S1/S2 Abdominal exam: Soft, nontender, with no palpable masses. No hepatosplenomegaly. No palpable hernias. Extremities: no clubbing, cyanosis or edema. No adenopathy. LABORATORY VALUES: As Noted RADIOLOGIC STUDIES: As Noted Assessment IMPRESSION: encounter for high-risk screening colonoscopy due to family history of colon cancer. GERD, history of gastritis PLAN: I have reviewed my findings with the surgeon. Will plan for upper and lower endoscopy. We discussed the risks and benefits of the planned endoscopy. I have informed the patient that complications can occur including failure to complete the endoscopy and perforation. The patient had the opportunity to ask questions concerning the planned endoscopy. My staff has also explained the procedure to the patient in understandable terms and has given the patient printed material concerning the procedure. The patient freely consents to surgery. The patient was offered a surgery/procedure at a [facility]. I have counseled the patient regarding the risk of exposure to and/or potential harm posed by the COVID-19 virus with having a surgery/procedure at this time versus the risk of delaying the surgery/procedure. It is not possible to know either the risk of delaying the surgery or procedure or chance of getting an infection with perfect accuracy, but a joint decision was made between the patient and myself to proceed at this time with endoscopy. I plan to use Miralax/Dulcolax bowel preparation I have explained to the patient the difference between IV conscious sedation and MAC anesthesia - and I have offered either, according to the patient's wishes. I have explained that with IV conscious sedation there is no anesthesia provider available and therefore there is a limitation of the amount of IV medications that can be given and that the patient may wake up in the middle of the procedure and/or experience pain/discomfort during the procedure. Further discussion was done and the patient was given the opportunity to ask questions and all questions were answered. The patient chooses IV conscious sedation Diagnoses: (Z12.11) Encounter for screening for malignant neoplasm of colon (primary encounter diagnosis) (Z80.0) Family history of colon cancer (K21.9) Gastroesophageal reflux disease, unspecified whether esophagitis present (Z87.19) History of gastritis I spent a total of 35 minutes on the date of the service which included preparing to see the patient, [id number] patient care, completing clinical documentation, obtaining and/or reviewing separately obtained history, performing a medically appropriate examination, counseling and educating the patient/family/caregiver, ordering medications, tests, or procedures, and care coordination (not separately reported). Nataly Navarro PA-C documented in this encounter [facility] 06-15-2022 Instructions Hermila Randall MD - 06/15/2022 10:18 AM EST -We will start you on annual infusions of Reclast. If you start having aches, pains, headache or low-grade fever after the infusion, you may take Tylenol as needed for the first couple of days after the infusion documented in this encounter [facility] 06-15-2022 History of Present illness Narrative ENDOCRINOLOGY CLINIC NOTE Reason for visit Eladia Tirado is a pleasant 76 year old female with h/o esophagitis presented for follow-up of low bone density. HPI Evaluation for secondary causes of low BMD in 05/2022 showed albumin adjusted calcium 9.6, GFR 81, ionized calcium 1.24, P4.3, vitamin D 52, PTH 28, 24-hour urine calcium 247, CTX 487, bone specific ALP 11.2 and normal TFTs. SPEP with no M protein and celiac screen was negative Most recent DXA 03/2022 compared to 2009: L-spine T score -2.4 10% decline Left hip T score -1.8 6.1% decline Left femoral neck T score -2.5 12.8% decline Right hip T score -2.1 Right femoral neck T score -2.8 Fracture history: L ankle fracture 22 years ago R humeral fracture following a fall form a ground in 11/2021 Treatment history (including any side effects/contraindications): None Family history of metabolic bone disease or fractures: None Risk factors: > Menstrual history/male hypogonadism: - menarche: - last period: in her 50s - periods were regular > Medication exposures/pertinent medical or social history: (Glucocorticoid, AED use, relevant medications, hyperthyroidism, kidney stone/disease, eating disorder, malabsorption, immobility, smoking, excessive alcohol use etc) None Calcium/Vit D intake: Dietary calcium: eats cheese Supplements: citracal 2 tabs daily Vitamin D intake: takes MVI, and 2 tabs of vitamin D Weight bearing exercise: None Dental Procedure: None Radiation Exposure: None Height Loss: About an inch Past Medical History PAST MEDICAL HISTORY Diagnosis Date Disorder of bone and cartilage, unspecified Esophagitis, unspecified Family history of malignant neoplasm of gastrointestinal tract Internal hemorrhoids without mention of complication Other and unspecified hyperlipidemia Seasonal allergies Unspecified hemorrhoids without mention of complication Hemorrhoids Past Surgical History PAST SURGICAL HISTORY Procedure Laterality Date COLONOSCOPY 12/11/2016 normal, repeat in 5 yrs due to family history COLONOSCOPY FLX DX W/COLLJ SPEC WHEN PFRMD 2002 Colonoscopy COLONOSCOPY FLX DX W/COLLJ SPEC WHEN PFRMD 10/29/11 repeat 5 years EGD 12/11/2016 gastritis and fundic gland polyps FOOT SURGERY HX Right 08/2015 Medications Current Outpatient Medications Medication Sig losartan (COZAAR) 25 mg tablet Take 1 tablet by mouth once daily. For blood pressure calcium phosphate trib/vit D3 (CITRACAL + D3, CALCIUM PHOS, ORAL) Take 2 tablets by mouth once daily. atorvastatin (LIPITOR) 20 mg tablet Take 1 tablet by mouth daily at bedtime. For cholesterol. ibuprofen (MOTRIN) 200 mg tablet Take 600 mg by mouth every 6 hours as needed for pain. cholecalciferol, vitamin D3, (VITAMIN D3 ORAL) Take 2 tablets by mouth once daily. MEDICATION, NON-DATABASE Aloe Gel MEDICATION, NON-DATABASE Tumeric famotidine (PEPCID ORAL) Take 20 mg by mouth. omega-3 fatty acids(FISH OIL 500 MG CAP) Take one(1) capsule daily. MULTIVITAMIN TAB Take one(1) tablet daily. No current facility-administered medications for this visit. The medication list in the chart was reviewed. Allergies ALLERGIES No Known Allergies The allergy list in the chart was reviewed. Family History FAMILY HISTORY Problem Relation Age of Onset Hypertension Mother Lipids Mother Blood Disease Mother Heart Mother CAD, CABG Kidney Disease Mother ESRD, on HD Cancer Father brain Heart Brother Heart Sister CAD, smoker Cancer Maternal Grandfather colon Cancer Maternal Aunt colon Colon Cancer Brother 50 Colon Cancer Brother 60 Social History Social History Tobacco Use Smoking status: Never Smokeless tobacco: Never Vaping Use Vaping Use: Never used Substance Use Topics Alcohol use: Yes Comment: glass of wine daily Drug use: No Review of Systems: Answers submitted by the patient for this visit: Core Review of Systems (Submitted on 06/08/2022) Fever : No Night Sweats: No Recent Unintentional Weight Change: No Nasal Congestion: No Hearing Loss: No Vision Disturbance: No A Cough: No Difficulty Breathing?: No Chest Pain: No Irregular Heart Beat: No Leg Swelling: No Nausea: No Diarrhea: No Black Tarry Stools: No Difficulty Urinating?: No Awaken at Night More Than Once to Urinate?: Yes Joint Pain or Stiffness: No Muscle Aches: No Leg or Foot Discomfort at Night?: No A Rash: No Dizziness: No Headaches: No Memory Loss: No Seizures: No Physical Exam There were no vitals taken for this visit. There is no height or weight on file to calculate BMI. Last 3 Encounter Ht Readings: Date: Ht: 01/13/2022 162.6 cm (5' 4) 01/24/2021 162.6 cm (5' 4) 11/20/2019 161.3 cm (5' 3.5) General Appearance: Alert, cooperative, not in distress Previous exam: Head: Normocephalic, atraumatic Neck: Supple Cardiovascular: Regular rate and rhythm, no murmur, rub, or gallop Respiratory: Clear to auscultation bilaterally Musculoskeletal: back is not tender to palpation Extremities: No edema Neurologic: AAOx 3 Psychiatric: appropriate mood Imaging DXA scans as above Recent Laboratory Data: 01/26/22 10:36 Sodium 131 (L) Potassium 4.4 Chloride 93 (L) CO2 25 BUN 10 Creatinine 0.69 Glucose 98 Protein, Total 7.3 Calcium 9.4 Albumin 4.8 Bilirubin, Total 0.4 Alkaline Phosphatase 73 ALT 21 AST 24 Anion Gap 13 eGFR 90 Assessment Eladia Tirado is a pleasant 76 year old female presented for follow-up for low bone density. Low bone density Most recent DXA from 03/2022 shows lowest T score -2.8 at the right femoral neck with significant decline compared to 2018. She had a right humerus fragility fracture. Risk factors for low bone density include age, ethnicity, postmenopausal state. Evaluation for secondary causes of low BMD was unremarkable It was again discussed with the patient that pharmacologic therapy is appropriate based on her bone density and risk factors for fracture. Risks, benefits, potential side effects, and fracture data for bisphosphonates, denosumab, teriparatide/abaloparatide and romosozumab were previously reviewed. Since she has history of esophagitis, we will avoid oral bisphosphonates. After discussing and reviewing the above, Ms. Reno would like to start annual infusions of Reclast, and I think it is good option given that her lowest BMD is at the hip level She was advised to achieve a total of 1200 mg/day of calcium intake we will continue the current vitamin D intake. Her total calcium is elevated, but the albumin adjusted value is normal and the ionized calcium is also normal. We will lower the Citracal to 1 pill a day, and she will obtain the remainder of the calcium from diet We will start the Reclast infusion Some of the above has been copied from prior documentation on but riggs elements reviewed, confirmed, and/or updated by me (Hermila Randall MD) on 06/15/2022 I spent a total of 25 minutes on the date of the service which included preparing to see the patient, [id number] patient care, completing clinical documentation, counseling and educating the patient/family/caregiver, and ordering medications, tests, or procedures. Virtual Visit (Audio/Visual)I have discussed the nature of this visit with the patient which will occur via [facility] (Phone, Virtual Visit) and she agrees to proceed with this interaction. This note was created using [employer] dictation software. You may find errors that were missed during proofreading. They are purely unintentional and if there are any concerns regarding this dictation, please do not hesitate to call the dictating provider for clarification. Hermila Randall MD documented in this encounter [facility] 05-20-2022 Instructions Hermila Randall MD - 05/20/2022 12:05 PM EST - Please do blood tests and a 24 hour urine collection - Target calcium intake 1200 mg per day from diet and/or supplements - We will meet in a month - Here is the estimated calcium content of a variety of foods: Produce Serving Size Estimated Calcium* Tony greens, frozen 8 oz 360 mg Broccoli cayetano 8 oz 200 mg Kale, frozen 8 oz 180 mg Soy Beans, green, boiled 8 oz 175 mg Bok Norberto, cooked, boiled 8 oz 160 mg Figs, dried 2 figs 65 mg Broccoli, fresh, cooked 8 oz 60 mg Oranges 1 whole 55 mg Seafood Serving Size Estimated Calcium* Sardines, canned with bones 3 oz 325 mg Gunter, canned with bones 3 oz 180 mg Shrimp, canned 3 oz 125 mg Dairy Serving Size Estimated Calcium* Ricotta, part-skim 4 oz 335 mg Yogurt, plain, low-fat 6 oz 310 mg Milk, skim, low-fat, whole 8 oz 300 mg Yogurt with fruit, low-fat 6 oz 260 mg Mozzarella, part-skim 1 oz 210 mg Cheddar 1 oz 205 mg Yogurt, Andorran 6 oz 200 mg [place] Cheese 1 oz 195 mg Feta Cheese 4 oz 140 mg Cottage Cheese, 2% 4 oz 105 mg Frozen yogurt, vanilla 8 oz 105 mg Ice Cream, vanilla 8 oz 85 mg Parmesan 1 tbsp 55 mg Fortified Food Serving Size Estimated Calcium* [employer] milk, rice milk or soy milk, fortified 8 oz 300 mg [place] juice and other fruit juices, fortified 8 oz 300 mg Tofu, prepared with calcium 4 oz 205 mg Waffle, frozen, fortified 2 pieces 200 mg Oatmeal, fortified 1 packet 140 mg Prydeinig muffin, fortified 1 muffin 100 mg Cereal, fortified 8 oz 100-1,000 mg Other Serving Size Estimated Calcium* Mac & cheese, frozen 1 package 325 mg Pizza, cheese, frozen 1 serving 115 mg Pudding, chocolate, prepared with 2% milk 4 oz 160 mg Beans, baked, canned 4 oz 160 mg Patient information: Collection of a 24-hour urine specimen The following instructions will guide you in the proper collection of a 24-hour urine specimen. In some instances, you will be asked to collect two or three consecutive 24-hour urine samples. INSTRUCTIONS You should collect every drop of urine during each 24-hour period. It does not matter how much or little urine is passed each time, as long as every drop is collected. Begin the urine collection in the morning after you wake up, after you have emptied your bladder for the first time. Urinate (empty the bladder) for the first time and flush it down the toilet. Note the exact time (e.g., 6:15 AM). You will begin the urine collection at this time. Collect every drop of urine during the day and night in an empty collection bottle. Store the bottle at room temperature or in the refrigerator. If you need to have a bowel movement, any urine passed with the bowel movement should be collected. Try not to include feces with the urine collection. If feces do get mixed in, do not try to remove the feces from the urine collection bottle. Finish by collecting the first urine passed the next morning, adding it to the collection bottle. This should be within ten minutes before or after the time of the first morning void on the first day (which was flushed). In this example, you would try to void between 6:05 and 6:25 on the second day. If you need to urinate one hour before the final collection time, drink a full glass of water so that you can void again at the appropriate time. If you have to urinate 20 minutes before, try to hold the urine until the proper time. Please note the exact time of the final collection, even if it is not the same time as when collection began on day one. STORAGE -- The bottle(s) may be kept at room temperature for a day or two, but should be kept cool or refrigerated for longer periods of time. RECLAST: Zoledronic Acid Intravenous zoledronic acid (brand name Reclast ) was recently approved by the [place] FDA as the first once yearly therapy for post-menopausal osteoporosis. Zoledronic acid was previously FDA approved for Paget s disease and in oncology for management of hypercalcemia of malignancy and skeletal metastases (Zometa ; 4 mg dose). Osteoporosis approval was based in large part on data published from two large fracture studies. In the [facility] Pivotal Fracture Trial (HORIZON-PFT), [id number] postmenopausal women were randomized to 3 annual doses of 5 mg of zoledronic acid or placebo1. This trial found that over 3 years of follow up, postmenopausal women taking zoledronic acid had a significantly lower rate of new morphometric vertebral fractures (relative risk reduction, RRR = 70%), non-vertebral fractures (RRR = 25%) and hip fractures (RRR = 41%). While this study is not directly comparable with the pivotal studies of oral bisphosphonates, the magnitude and consistency of the fracture risk reduction equaled or exceeded that observed in prior bisphosphonate trials, despite a somewhat less robust increase in lumbar bone mineral density (6.7% over 3 years) compared with that seen in with alendronate (8.8 % versus placebo over 3 years in the phase III study by Larry and colleagues)2. A second study, the HORIZON recurrent fracture trial (HORIZON-RFT) examined the effects of once yearly zoledronic acid on recurrent fractures after an initial hip fracture in over 1000 women and men3. IV zoledronic acid was associated with a significantly reduced risk of new clinical vertebral fracture (RRR 46%) and any clinical fracture (RRR 35%). All cause mortality was also reduced by 28%, although the mechanism for the mortality benefit is not fully understood. While the population in this trial was a bit younger than that seen in the community traditionally, and the study was too small to look at age and sex affects, this was the first osteoporosis RCT to specifically examine a post-hip fracture population. Two shorter-term studies compared zoledronic acid with alendronate and examined the onset of action4 of each and the effects on BMD for patients that switched from alendronate to zoledronic acid5. Among new users, intravenous zoledronic acid more rapidly reduced biomarkers of bone resorption compared to new alendronate users and was non-inferior to alendronate in maintaining bone mineral density in patients switched from alendronate to zoledronic acid. Adverse Events In both HORIZON studies, zoledronic acid was generally well tolerated and serious adverse events did not differ significantly from placebo. Up to 18.8% of persons receiving zoledronic acid experienced infusion reactions4, consisting most commonly of influenza-like symptoms and fevers within three days of the infusion. Infusions were much less common with subsequent treatments. In the study of patients switched from alendronate to zoledronic acid, no patients experienced an infusion reaction, suggesting a waning of this effect with longer duration of bisphosphonate exposure. In the HORIZON Recurrent Fracture Trial, where patients were pre-treated with acetaminophen with study drug and as needed over 72 hours, only 7% of participants experienced infusion reactions. Hypocalcemia was seen infrequently (0.2% of subjects using a cutpoint of 7.5 mg/dl and 2.3 % using 8.3 mg/dl as the threshold) at the zoledronic acid dose used for osteoporosis and was seldom symptomatic or sustained when it occurred. It is recommended that all persons receiving zoledronic acid be vitamin D replete. In the HORIZON Recurrent Fracture Study, patients with 25 OH vitamin D levels below 15 ng/ml or those without known vitamin D levels were given 50 to 125,000 IU of ergocalciferol or cholecalciferol 2 weeks prior to infusion to help ameliorate this potential concern. It is also recommended that renal function be considered prior to use of IV bisphosphonates and that they be avoided if creatinine clearances are < 35 ml/min. Osteonecrosis of the jaw is an uncommon adverse outcome that predominately has been reported in association with frequent intravenous bisphosphonate therapy in the setting of underlying malignancy (see ACR Hotline Bisphosphonate-Associated Osteonecrosis of the Jaw, October 2005), but it has been very rare when bisphosphonates are administered for osteoporosis (current estimated incidence of 1/100,000). Two cases of confirmed osteonecrosis of the jaw were reported in patients in the HORIZON Pivotal Fracture Trial, 1 on active treatment, 1 receiving placebo; none were seen in the other HORIZON trial, although a specific case finding method was not used. Patients should be informed of this risk, and pending dental work should be completed prior to treatment. Atrial fibrillation was detected in 2.5% of zoledronic acid patients (96 out of 3862) vs 1.9% (75 out of 3852; P < 0.001) of patients on placebo in the HORIZON Pivotal Fracture Trial. Most atrial fibrillation occurred more than a month after the infusion, suggesting that this outcome was not mediated by a transient flux in serum calcium levels shortly after the infusion. An ECG sub-study in 559 patients did not demonstrate an increased risk of atrial fibrillation. The second HORIZON study did not detect an increased risk of atrial fibrillation or cardiovascular events associated with zoledronic acid. This issue is currently under review at FDA, which has not recommended any change in prescribing related to it. (http://www.fda.gov/cder/drug/ear ly_comm/bisphosphonates.htm) There has been concern about fracture healing with bisphosphonate use. The absence of impairment in hip fracture healing when zoledronic acid was administered within 90 days of a hip fracture suggests it may be suitable for post-fracture patients. This concern requires more study. Practical Considerations The decision to use zoledronic acid for osteoporosis will depend in part on cost, (currently approximately $1,264 per infusion wholesale ferrer for 5 mg Reclast and $700 for 4 mg Zometa) and insurance coverage, as well as on physician and patient preference. Adherence is a major problem with currently available oral anti-osteoporosis therapies, with less than 50% of those starting bisphosphonates continuing them for more than one year. A medication that is administered once a year could potentially improve adherence to therapy. A 15 minute IV infusion time will require that zoledronic be infused by health providers familiar with intravenous medication administration. Pre-medication with acetaminophen may help abrogate infusion related symptoms. While longer-term data is forthcoming, it is likely that IV zoledronic acid will assume a significant role in post-menopausal fracture management. THE BOTTOM LINE Zoledronic acid administered IV once yearly appears to be at least as effective as oral bisphosphonates in reducing the risk of new and recurrent vertebral and non-vertebral fractures in patients with osteoporosis Infusion reactions, including myalgias, may occur (particularly following the first dose) Vitamin D should be repleted before infusion, and patients should be monitored for hypocalcemia The drug should be avoided in patients with a creatinine clearance of <35 ml/min Patients who are not candidates for oral bisphosphonates, such as those with severe esophageal disease, inability to remain upright, or severe cognitive impairment may be particularly suitable patients for the drug Hotline Authors: Walker Matamoros MD, MSc, Lance Lynn MD, MPH, [facility] Education and Research on Therapeutics of Musculoskeletal Disorders, Division of Clinical Immunology and Rheumatology, [facility] Hotline Editors: Mega Blackmon MD; Rush Medina MD, MPH; Rush Ludwig MD Disclosures: Dr. 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 Dr. Lynn has served as a solar consultant or has received honoraria from [employer], [employer], [employer], and [employer]. 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 Adam Gaines and Oziel have nothing to disclose. The ACR Hotline is provided by the ACR Communications and Marketing Committee as a service to members. This Hotline reflects the views of the author(s) and does not represent a position statement of the [place] [employer] 1. Familia DM, Sonya PD, Janet R, et al. Once-yearly zoledronic acid for treatment of postmenopausal osteoporosis. N Engl J Med. 2007;356(18):1809-22. 2. Edward UA, Blas SR, Tawanda J, et al. Effect of oral alendronate on bone mineral density and the incidence of fractures in postmenopausal osteoporosis. The Alendronate Phase III Osteoporosis Treatment Study Group. N Engl J Med. 1995;333(22):1437-43. 3. Renea KW, Sumeet CS, Rambo JS, et al. Zoledronic Acid and Clinical Fractures and Mortality after Hip Fracture. 2007:[id number]. 4. Shiloh Fisher, Genevieve R, Sybil A, Pk E, Chavez W. A single zoledronic acid infusion reduces bone resorption markers more rapidly than weekly oral alendronate in postmenopausal women with low bone mineral density. Bone. 2007;40(5):1238-43. 5. Nhung M, Princess R, John P, et al. Intravenous zoledronic acid 5 mg in the treatment of postmenopausal women with low bone density previously treated with alendronate. Bone. 2007;41(1):122-8. The following are corrections to the Zoledronic Acid Hotline: (noted in red): A second study, the HORIZON recurrent fracture trial (HORIZON-RFT) examined the effects of once yearly zoledronic acid on recurrent fractures after an initial hip fracture in over 2000 women and men3. Atrial fibrillation was detected in 1.3% of zoledronic acid patients (50 out of 3862) vs 0.5% (20 out of 3852; P < 0.001) of patients on placebo in the HORIZON Pivotal Fracture Trial. Costs quoted in the Hotline may not be current or consistent in all regions. The current Wholesale Acquisition Cost (WAC) for Reclast (5 mg) is now quoted as $1042. Prescribers are advised to contact their local carriers or distributors for up-to-date information on the acquisition cost of Reclast and Zometa. Osteonecrosis of the jaw is an uncommon adverse outcome that predominately has been reported in association with frequent intravenous bisphosphonate therapy in the setting of underlying malignancy (see ACR Hotline Bisphosphonate-Associated Osteonecrosis of the Jaw, October 2005), but it has been very rare when bisphosphonates are administered for osteoporosis (current estimated incidence of 1/100,000 patient-years of therapy). 2007 [place] [employer] This information was printed from: http://www.rheumatology.org/publi cations/hotline/1007ZoledronicAci d.asp What is Prolia? (denosumab) Prolia is a prescription medicine used to: Treat osteoporosis (thinning and weakening of bone) in women after menopause ( change of life ) who: are at high risk for fracture (broken bone) cannot use another osteoporosis medicine or other osteoporosis medicines did not work well Increase bone mass in men with osteoporosis who are at high risk for fracture. Treat osteoporosis in men and women who will be taking corticosteroid medicines (such as prednisone) for at least 6 months and are at high risk for fracture. Treat bone loss in men who are at high risk for fracture receiving certain treatments for prostate cancer that has not spread to other parts of the body. Treat bone loss in women who are at high risk for fracture receiving certain treatments for breast cancer that has not spread to other parts of the body. It is not known if Prolia is safe and effective in children. What is the most important information I should know about Prolia? If you receive Prolia, you should not receive XGEVA . Prolia contains the same medicine as Xgeva (denosumab). Prolia can cause serious side effects including: Serious allergic reactions. Serious allergic reactions have happened in people who take Prolia. Call your doctor or go to your nearest emergency room right away if you have any symptoms of a serious allergic reaction. Symptoms of a serious allergic reaction may include: low blood pressure (hypotension) trouble breathing throat tightness swelling of your face, lips, or tongue rash itching hives Low calcium levels in your blood (hypocalcemia). Prolia may lower the calcium levels in your blood. If you have low blood calcium before you start receiving Prolia, it may get worse during treatment. Your low blood calcium must be treated before you receive Prolia. Most people with low blood calcium levels do not have symptoms, but some people may have symptoms. Call your doctor right away if you have symptoms of low blood calcium such as: spasms, twitches, or cramps in your muscles numbness or tingling in your fingers, toes, or around your mouth Your doctor may prescribe calcium and vitamin D to help prevent low calcium levels in your blood while you take Prolia. Take calcium and vitamin D as your doctor tells you to. Severe jaw bone problems (osteonecrosis). Severe jaw bone problems may happen when you take Prolia. Your doctor should examine your mouth before you start Prolia. Your doctor may tell you to see your dentist before you start Prolia. It is important for you to practice good mouth care during treatment with Prolia. Ask your doctor or dentist about good mouth care if you have any questions. Unusual thigh bone fractures. Some people have developed unusual fractures in their thigh bone. Symptoms of a fracture include new or unusual pain in your hip, groin, or thigh. Increased risk of broken bones, including broken bones in the spine, after stopping Prolia. After your treatment with Prolia is stopped, your risk for breaking bones, including bones in your spine, is increased. Your risk for having more than 1 broken bone in your spine is increased if you have already had a broken bone in your spine. Do not stop taking Prolia without first talking with your doctor. If your Prolia treatment is stopped, talk to your doctor about other medicine that you can take. Serious infections. Serious infections in your skin, lower stomach area (abdomen), bladder, or ear may happen if you take Prolia. Inflammation of the inner lining of the heart (endocarditis) due to an infection also may happen more often in people who take Prolia. You may need to go to the hospital for treatment if you develop an infection. Prolia is a medicine that may affect the ability of your body to fight infections. People who have a weakened immune system or take medicines that affect the immune system may have an increased risk for developing serious infections. Call your doctor right away if you have any of the following symptoms of infection: fever or chills skin that looks red or swollen and is hot or tender to touch fever, shortness of breath, cough that will not go away severe abdominal pain frequent or urgent need to urinate or burning feeling when you urinate Skin problems. Skin problems such as inflammation of your skin (dermatitis), rash, and eczema may happen if you take Prolia. Call your doctor if you have any of the following symptoms of skin problems that do not go away or get worse: redness itching small bumps or patches (rash) your skin is dry or feels like leather blisters that ooze or become crusty skin peeling Bone, joint, or muscle pain. Some people who take Prolia develop severe bone, joint, or muscle pain. Call your doctor right away if you have any of these side effects. DO NOT TAKE PROLIA IF YOU: have been told by your doctor that your blood calcium level is too low. are or plan to become . are allergic to denosumab or any of the ingredients in Prolia Before taking Prolia, tell your doctor about all of your medical conditions, including if you: are taking a medicine called Xgeva (denosumab). Xgeva contains the same medicine as Prolia. have low blood calcium. cannot take daily calcium and vitamin D. had parathyroid or thyroid surgery (glands located in your neck). have been told you have trouble absorbing minerals in your stomach or intestines (malabsorption syndrome). have kidney problems or are on kidney dialysis. are taking medicine that can lower your blood calcium levels. plan to have dental surgery or teeth removed. are or plan to become . Prolia may harm your unborn baby. Females who are able to become : Your healthcare provider should do a test before you start treatment with Prolia. You should use an effective method of control (contraception) during treatment with Prolia and for at least 5 months after your last dose of Prolia. Tell your doctor right away if you become while taking Prolia. are or plan to breastfeed. It is not known if Prolia passes into your breast milk. You and your doctor should decide if you will take Prolia or breastfeed. You should not do both. Tell your doctor about all the medicines you take, including prescription and esus-uym-tdfdryt medicines, vitamins, and herbal supplements. Know the medicines you take. Keep a list of medicines with you to show to your doctor or pharmacist when you get a new medicine. How will I receive Prolia? Prolia is an injection that will be given to you by a healthcare professional. Prolia is injected under your skin (subcutaneous). You will receive Prolia 1 time every 6 months. You should take calcium and vitamin D as your doctor tells you to while you receive Prolia. If you miss a dose of Prolia, you should receive your injection as soon as you can. Take good care of your teeth and gums while you receive Prolia. Transfer and floss your teeth regularly. Tell your dentist that you are receiving Prolia before you have dental work. What are the possible side effects of Prolia? See What is the most important information I should know about Prolia? It is not known if the use of Prolia over a long period of time may cause slow healing of broken bones. The most common side effects of Prolia in women who are being treated for osteoporosis after menopause are: back pain pain in your arms and legs high cholesterol muscle pain bladder infection The most common side effects of Prolia in men with osteoporosis are: back pain joint pain common cold (runny nose or sore throat) The most common side effects of Prolia in patients with glucocorticoid-induced osteoporosis are: back pain high blood pressure lung infection (bronchitis) headache The most common side effects of Prolia in patients receiving certain treatments for prostate or breast cancer are: joint pain back pain pain in your arms and legs muscle pain Tell your doctor if you have any side effect that bothers you or that does not go away. These are not all the possible side effects of Prolia. What are the ingredients in Prolia? Active ingredient: denosumab Inactive ingredients: sorbitol, acetate, polysorbate 20, Water for Injection (S[facility]ING), and sodium hydroxide documented in this encounter [facility] 05-20-2022 History of Present illness Narrative ENDOCRINOLOGY CLINIC NOTE Reason for visit Eladia Tirado is a pleasant 76 year old female with h/o esophagitis seen in consultation for evaluation and discussion of treatment options for low bone density. Consult has been requested by Dr. Abilio Mcbride HPI Most recent DXA 03/2022 compared to 2009: L-spine T score -2.4 10% decline Left hip T score -1.8 6.1% decline Left femoral neck T score -2.5 12.8% decline Right hip T score -2.1 Right femoral neck T score -2.8 Fracture history: L ankle fracture 22 years ago R humeral fracture following a fall form a ground in 11/2021 Treatment history (including any side effects/contraindications): None Family history of metabolic bone disease or fractures: None Risk factors: > Menstrual history/male hypogonadism: - menarche: - last period: in her 50s - periods were regular > Medication exposures/pertinent medical or social history: (Glucocorticoid, AED use, relevant medications, hyperthyroidism, kidney stone/disease, eating disorder, malabsorption, immobility, smoking, excessive alcohol use etc) None Calcium/Vit D intake: Dietary calcium: eats cheese Supplements: citracal 2 tabs daily Vitamin D intake: takes MVI, and 2 tabs of vitamin D Weight bearing exercise: None Dental Procedure: None Radiation Exposure: None Height Loss: About an inch Past Medical History PAST MEDICAL HISTORY Diagnosis Date Disorder of bone and cartilage, unspecified Esophagitis, unspecified Family history of malignant neoplasm of gastrointestinal tract Internal hemorrhoids without mention of complication Other and unspecified hyperlipidemia Seasonal allergies Unspecified hemorrhoids without mention of complication Hemorrhoids Past Surgical History PAST SURGICAL HISTORY Procedure Laterality Date COLONOSCOPY 12/11/2016 normal, repeat in 5 yrs due to family history COLONOSCOPY FLX DX W/COLLJ SPEC WHEN PFRMD 2002 Colonoscopy COLONOSCOPY FLX DX W/COLLJ SPEC WHEN PFRMD 10/29/11 repeat 5 years EGD 12/11/2016 gastritis and fundic gland polyps FOOT SURGERY HX Right 08/2015 Medications Current Outpatient Medications Medication Sig atorvastatin (LIPITOR) 20 mg tablet Take 1 tablet by mouth daily at bedtime. For cholesterol. ibuprofen (ADVIL) 200 mg tablet Take 600 mg by mouth every 6 hours as needed for pain. cholecalciferol, vitamin D3, (VITAMIN D3 ORAL) Take 2 tablets by mouth once daily. MEDICATION, NON-DATABASE Aloe Gel MEDICATION, NON-DATABASE Tumeric famotidine (PEPCID ORAL) Take 20 mg by mouth. omega-3 fatty acids(FISH OIL 500 MG CAP) Take one(1) capsule daily. MULTIVITAMIN TAB Take one(1) tablet daily. No current facility-administered medications for this visit. The medication list in the chart was reviewed. Allergies ALLERGIES No Known Allergies The allergy list in the chart was reviewed. Family History FAMILY HISTORY Problem Relation Age of Onset Hypertension Mother Lipids Mother Blood Disease Mother Heart Mother CAD, CABG Kidney Disease Mother ESRD, on HD Cancer Father brain Heart Brother Heart Sister CAD, smoker Cancer Maternal Grandfather colon Cancer Maternal Aunt colon Colon Cancer Brother 50 Colon Cancer Brother 60 Social History Social History Tobacco Use Smoking status: Never Smokeless tobacco: Never Vaping Use Vaping Use: Never used Substance Use Topics Alcohol use: Yes Comment: glass of wine daily Drug use: No Review of Systems: Answers submitted by the patient for this visit: Endocrine Review of Systems (Submitted on 05/19/2022) Fatigue: No Night Sweats: No Recent Unintentional Weight Change: No Skin Color Changes: No Post-Nasal Drip: No Thyroid Pain (lower neck): No Trouble Swallowing: No Vision Disturbance: No Chest Pain: No Leg Swelling: No Blood Clots?: No Leg Pain while walking?: No Difficulty Breathing?: No Heartburn: Yes Nausea: No Vomiting?: No Diarrhea: No Constipation: No Abdominal Pain: No Bone Pain?: Yes Muscle Aches: No Muscle Weakness: No Joint Pain or Stiffness: Yes Headaches: No Dizziness: No Numbness?: No Urgency to Urinate?: No Increased Urination?: No Slow or Small Urine Stream?: No Are your menstrual cycles regular?: No Are your menstrual cycles irregular?: No Have your menstrual cycles stopped?: Yes Flushing?: No Hot Flashes?: No Increased Thirst: No Change in Body Hair?: No Cold Intolerance: No Heat Intolerance?: No Physical Exam BP 176/85 (BP Site: Left Arm, BP Position: Sitting, BP Cuff Size: Large Adult) Pulse 74 Resp 16 Ht 160 cm (5' 2.99) Wt 58.2 kg (128 lb 3.2 oz) BMI 22.72 kg/m Body mass index is 22.72 kg/m . Last 3 Encounter Ht Readings: Date: Ht: 01/13/2022 162.6 cm (5' 4) 01/24/2021 162.6 cm (5' 4) 11/20/2019 161.3 cm (5' 3.5) General Appearance: Alert, cooperative, not in distress Head: Normocephalic, atraumatic Neck: Supple Cardiovascular: Regular rate and rhythm, no murmur, rub, or gallop Respiratory: Clear to auscultation bilaterally Musculoskeletal: back is not tender to palpation Extremities: No edema Neurologic: AAOx 3 Psychiatric: appropriate mood Imaging DXA scans as above Recent Laboratory Data: 01/26/22 10:36 Sodium 131 (L) Potassium 4.4 Chloride 93 (L) CO2 25 BUN 10 Creatinine 0.69 Glucose 98 Protein, Total 7.3 Calcium 9.4 Albumin 4.8 Bilirubin, Total 0.4 Alkaline Phosphatase 73 ALT 21 AST 24 Anion Gap 13 eGFR 90 Assessment Eladia Tirado is a 76 year old female seen in consultation for evaluation and discussion of treatment options for low bone density. Low bone density Most recent DXA from 03/2022 shows lowest T score -2.8 at the right femoral neck with significant decline compared to 2018. She had a right humerus fragility fractures. Risk factors for low bone density include age, ethnicity, postmenopausal state. We will first complete secondary evaluation for other causes of low bone density. It was discussed with the patient that pharmacologic therapy is appropriate based on her bone density and risk factors for fracture. Risks, benefits, potential side effects, and fracture data for bisphosphonates, denosumab, teriparatide/abaloparatide and romosozumab were reviewed. Since she has history of esophagitis, we will avoid oral bisphosphonates. 2 main options in her case would be zoledronic acid or denosumab, since her lowest T score is at the femoral neck/hip area. Information was provided to the patient She was advised to achieve a total of 1200 mg/day of calcium intake we will continue the current vitamin D intake. We will meet in about a month to discuss the results and next steps Her BP was elevated at 176/85, and 200/99 on repeat. She stated that her blood blood pressure is usually in the 130s, but she gets nervous when she goes to the clinic. I asked her to check it at home and to contact Dr. Mcbride My final recommendations will be communicated back to the requesting physician by way of shared Medical record or letter to requesting physician via [place] mail. I spent 50 minutes in the visit, with more than 50% of the total civm-mq-oevg time of the visit in counseling / coordination of care. This note was created using [employer] dictation software. You may find errors that were missed during proofreading. They are purely unintentional and if there are any concerns regarding this dictation, please do not hesitate to call the dictating provider for clarification. Hermila Randall MD documented in this encounter [facility] 05-07-2022 Miscellaneous Notes Scheduled olinda Champion next week for osteoporosis. Sis Marinelli Spoke to patient who verbalized understanding of results. Please place order for endo and will have PSS schedule with provider here in bk. Teresa Norman Ma Please inform patient that her recent bone density results shows 10-year Fracture Risk (FRAX): Major osteoporotic fracture risk 26% Hip fracture risk is 8.6% IMPRESSION: 1. Osteoporosis in the bilateral femoral necks. 2. Osteopenia in the lumbar spine. I would like her to consider seeing [employer] for opinion if interested in bone medications to treat this, in addition to need for calcium , vitamin D and weight bearing exercise routinely Abilio Mcbride DO documented in this encounter [facility] 04-15-2022 History of Present illness Narrative Radiology Service Progress Note PATIENT NAME: Eladia Tirado DATE OF SERVICE: April 15, 2022 TIME: 10:30 AM PATIENT IDENTITY VERIFICATION COMPLETED USING TWO (2) IDENTIFIERS: Name and Date of confirmed by patient verbally. FALL SCREENING: Has the patient had 2 falls in the last year or 1 fall with injury or currently using an Ambulatory Assistive Device (Walker, Cane, Wheelchair, Crutches, etc.)? No PATIENT GENDER DATA: Female. status: : No status: NO. PATIENT RELEVANT IMPLANT DATA REVIEWED: Not Applicable RADIOLOGY DEPARTMENT: Bone Density PERIPHERAL IV DATA: Not applicable SIGNED BY: RT Gege(Pat) April 15, 2022 10:30 AM documented in this encounter [facility] 04-14-2022 Miscellaneous Notes April 14, 2022 PID: [id number] Eladia Tirado [address] [place] [address] Dear Ms. Tirado, We are pleased to inform you that the results of your recent breast imaging exam on 04/13/2022 are normal. Your mammogram demonstrates that you have dense breast tissue, which could hide abnormalities. Dense breast tissue, in and of itself, is a relatively common condition. Therefore, this information is not provided to cause undue concern; rather, it is to raise your awareness and promote discussion with your health care provider regarding the presence of dense breast tissue in addition to other risk factors. Early detection of cancer is very important. We also understand recommendations regarding breast cancer screening are controversial. Please discuss with your primary care provider which strategy is best for you and whether a mammogram is right for you. Your imaging studies and report will be kept on file at [facility] as part of your permanent medical record and are available for your continuing care. Thank you for allowing us to help in meeting your health care needs. Sincerely, Dr. Eng Interpreting Radiologist [facility] (Normal over 40) documented in this encounter [facility] 04-13-2022 Miscellaneous Notes The following approved medication requests have been transmitted electronically. Requested Prescriptions Signed Prescriptions Disp Refills peg 3350-Electrolytes (GOLYTELY) 236-22.74-6.74 -5.86 gram suspension 4000 mL 0 Sig: Take 4,000 mL by mouth one time only for 1 dose. Refer to printed prep instructions from your provider. Authorizing Provider: ABILIO MCBRIDE Ordering User: MARCIE MEDINA APRN.CNP Please send Golytely Bowel Prep to [facility] [place], [place] [address] Patient requesting this instead of Miralax / Dulcolax. Yara Manzo documented in this encounter [facility] 04-13-2022 Instructions Marcie Medina APRN.CNP - 04/13/2022 1:48 PM EST Images from the original note were not included. Bowel Preparation Instructions for: Golytely, Nulytely, Trilyte or Colyte (polyethylene glycol 3350 and electrolytes) IF YOU DO NOT FOLLOW THESE DIRECTIONS, YOUR COLONOSCOPY WILL BE CANCELLED. Riggs Instructions: Your bowel must be empty so that your doctor can clearly view your colon. Follow all of the instructions in this handout EXACTLY as they are written. Do NOT eat any solid food the ENTIRE day before your colonoscopy. Drink only clear liquids. Buy your bowel preparation at least 5 days before your colonoscopy. TRANSPORTATION on the Day of Your Exam A responsible person MUST be present with you at Check In prior to your colonoscopy and REMAIN in the endoscopy area until you are discharged. You are NOT ALLOWED to drive, take a taxi or bus, or leave the Endoscopy Center ALONE. If you do not have a responsible tow car driver (family member or friend) with you to take you home, your exam cannot be done with sedation and will be cancelled. Please bring a list of all of your current medications, including any Over-the Counter medications with you. Medications If you take insulin, diabetic medications or blood thinners such as Coumadin (warfarin), Plavix (clopidogrel), Ticlid (ticlopidine hydrochloride), Agrylin (anagrelide), Xarelto (Rivaroxaban), Pradaxa (Dabigatran), Eliquis (Apixaban), and Effient (Prasugrel). You MUST call the doctors who orders those medicines for instructions on altering the dosage before your colonoscopy. All other medications should be taken the day of the exam with a sip of water including ASPIRIN. Five (5) Days Before Your Colonoscopy Do NOT take medicines that stop diarrhea - such as Imodium, Kaopectate, or Pepto Bismol. Do NOT take fiber supplements - such as Metamucil, Citrucel, or Perdiem. Do NOT take products that contain iron - such as multi-vitamins (the label lists what is in the products). Do NOT take Vitamin E. Buy the prescription bowel preparation solution at your local pharmacy or drugstore pharmacy. 04/2019 Bowel Preparation Instructions for: Golytely, Nulytely, Trilyte or Colyte (polyethylene glycol 3350 and electrolytes) Three (3) Days Before Your Colonoscopy Do NOT eat high-fiber foods - such as popcorn, beans, seeds (flax, sunflower, quinoa), multigrain bread, nuts, salad/vegetables, or fresh and dried fruit. One (1) Day Before Your Colonoscopy Only drink clear liquids the ENTIRE DAY before your colonoscopy. Do NOT eat any solid foods. Drink at least 8 ounces of clear liquids every hour after waking up. The clear liquids you can drink include: Clear Liquid (NO RED LIQUIDS) DO NOT DRINK Gatorade, Pedialyte or Powerade Clear broth or bouillon Coffee or tea (no milk or non-dairy creamer) Carbonated and non-carbonated soft drinks Jarred-Aid or other fruit flavored drinks Strained fruit juices (no pulp) Jell-O, popsicles, hard candy Water Alcohol Milk or non-dairy creamers Noodles or vegetables in soup Juice with pulp Liquid you cannot see through Do not use tobacco/vaping products The bowel preparation solution will be consumed in two parts. Mix the solution the evening before your colonoscopy and refrigerate before drinking. You may add the flavor pack that came with the bowel preparation. Do NOT add ice, sugar or any other flavorings to the solution. Part 1 At 6:00 PM - Evening before your colonoscopy Drink an 8-oz glass of bowel preparation every 10 minutes for a total of 8 glasses. You may continue to drink clear liquids until midnight. Part 2 On the day of your colonoscopy you may drink clear liquids up to (three) 3 hours before your procedure. 4 1/2 hours before your colonoscopy Drink an 8-oz glass of bowel preparation every 10 minutes for a total of 8 glasses. Fifteen (15) minutes later, drink an 8-oz glass of clear liquids every 15 minutes for a total of 2 glasses. You may continue to drink clear liquids up to (three) 3 hours before your exam. 2 04/2019 documented in this encounter [facility] 04-13-2022 History of Present illness Narrative Radiology Service Progress Note PATIENT NAME: Eladia Tirado DATE OF SERVICE: April 13, 2022 TIME: 11:05 AM PATIENT IDENTITY VERIFICATION COMPLETED USING TWO (2) IDENTIFIERS: Name and Date of confirmed by patient verbally. FALL SCREENING: Has the patient had 2 falls in the last year or 1 fall with injury or currently using an Ambulatory Assistive Device (Walker, Cane, Wheelchair, Crutches, etc.)? No PATIENT GENDER DATA: Female. status: : No status: NO. PATIENT RELEVANT IMPLANT DATA REVIEWED: Not Applicable RADIOLOGY DEPARTMENT: Mammography PERIPHERAL IV DATA: Not applicable SIGNED BY: Ekaterina Rodriguez April 13, 2022 11:05 AM documented in this encounter [facility] 02-23-2022 Instructions Ni José APRN.CNP - 02/23/2022 2:27 PM EDT FACT SHEET FOR PATIENTS, PARENTS, AND CAREGIVERS EMERGENCY USE AUTHORIZATION (EUA) OF PAXLOVID FOR CORONAVIRUS DISEASE 2019 (COVID-19) You are being given this Fact Sheet because your healthcare provider believes it is necessary to provide you with PAXLOVID for the treatment of xldl-nd-bykxsvam coronavirus disease (COVID-19) caused by the SARS-CoV-2 virus. This Fact Sheet contains information to help you understand the risks and benefits of taking the PAXLOVID you have received or may receive. The U.S. Food and Drug Administration (FDA) has issued an Emergency Use Authorization (EUA) to make PAXLOVID available during the COVID-19 pandemic (for more details about an EUA please see What is an Emergency Use Authorization? at the end of this document). PAXLOVID is not an FDA-approved medicine in the [place]. Read this Fact Sheet for information about PAXLOVID. Talk to your healthcare provider about your options or if you have any questions. It is your choice to take PAXLOVID. What is COVID-19? COVID-19 is caused by a virus called a coronavirus. You can get COVID-19 through close contact with another person who has the virus. COVID-19 illnesses have ranged from very zdcz-qf-haoumm, including illness resulting in . While information so far suggests that most COVID-19 illness is mild, serious illness can happen and may cause some of your other medical conditions to become worse. Older people and people of all ages with severe, long lasting (chronic) medical conditions like heart disease, lung disease, and diabetes, for example seem to be at higher risk of being hospitalized for COVID-19. What is PAXLOVID? PAXLOVID is an investigational medicine used to treat ykgl-lk-soeasdny COVID-19 in adults and children [12 years of age and older weighing at least 88 pounds (40 kg)] with positive results of direct SARS-CoV-2 viral testing, and who are at high risk for progression to severe COVID-19, including hospitalization or . PAXLOVID is investigational because it is still being studied. There is limited information about the safety and effectiveness of using PAXLOVID to treat people with znru-up-ljfhturm COVID-19. The FDA has authorized the emergency use of PAXLOVID for the treatment of usri-bm-kupdgzdg COVID-19 in adults and children [12 years of age and older weighing at least 88 pounds (40 kg)] with a positive test for the virus that causes COVID-19, and who are at high risk for progression to severe COVID-19, including hospitalization or , under an EUA. 1 Revised: 01 August 2021 What should I tell my healthcare provider before I take PAXLOVID? Tell your healthcare provider if you: Have any allergies Have liver or kidney disease Are or plan to become Are a child Have any serious illnesses Tell your healthcare provider about all the medicines you take, including prescription and klkr-zyk-xnyxzvq medicines, vitamins, and herbal supplements. Some medicines may interact with PAXLOVID and may cause serious side effects. Keep a list of your medicines to show your healthcare provider and pharmacist when you get a new medicine. You can ask your healthcare provider or pharmacist for a list of medicines that interact with PAXLOVID. Do not start taking a new medicine without telling your healthcare provider. Your healthcare provider can tell you if it is safe to take PAXLOVID with other medicines. Tell your healthcare provider if you are taking combined hormonal contraceptive. PAXLOVID may affect how your control pills work. Females who are able to become should use another effective alternative form of contraception or an additional barrier method of contraception. Talk to your healthcare provider if you have any questions about contraceptive methods that might be right for you. How do I take PAXLOVID? PAXLOVID consists of 2 medicines: nirmatrelvir and ritonavir. Take 2 pink tablets of nirmatrelvir with 1 white tablet of ritonavir by mouth 2 times each day (in the morning and in the evening) for 5 days. For each dose, take all 3 tablets at the same time. If you have kidney disease, talk to your healthcare provider. You may need a different dose. Swallow the tablets whole. Do not chew, break, or crush the tablets. Take PAXLOVID with or without food. Do not stop taking PAXLOVID without talking to your healthcare provider, even if you feel better. If you miss a dose of PAXLOVID within 8 hours of the time it is usually taken, take it as soon as you remember. If you miss a dose by more than 8 hours, skip the missed dose and take the next dose at your regular time. Do not take 2 doses of PAXLOVID at the same time. If you take too much PAXLOVID, call your healthcare provider or go to the nearest hospital emergency room right away. If you are taking a ritonavir-or cobicistat-containing medicine to treat hepatitis C or Human Immunodeficiency Virus (HIV), you should continue to take your medicine as prescribed by your healthcare provider. Talk to your healthcare provider if you do not feel better or if you feel worse after 5 days. Who should generally not take PAXLOVID? Do not take PAXLOVID if: You are allergic to nirmatrelvir, ritonavir, or any of the ingredients in PAXLOVID You are taking any of the following medicines: Alfuzosin Pethidine, propoxyphene Ranolazine Amiodarone, dronedarone, flecainide, propafenone, quinidine Colchicine Lurasidone, pimozide, clozapine Dihydroergotamine, ergotamine, methylergonovine Lovastatin, simvastatin Sildenafil (Revatio ) for pulmonary arterial hypertension (PAH) Triazolam, oral midazolam Apalutamide Carbamazepine, phenobarbital, phenytoin Rifampin [place] s Wort (hypericum perforatum) Taking PAXLOVID with these medicines may cause serious or life-threatening side effects or affect how PAXLOVID works. These are not the only medicines that may cause serious side effects if taken with PAXLOVID. PAXLOVID may increase or decrease the levels of multiple other medicines. It is very important to tell your healthcare provider about all of the medicines you are taking because additional laboratory tests or changes in the dose of your other medicines may be necessary while you are taking PAXLOVID. Your healthcare provider may also tell you about specific symptoms to watch out for that may indicate that you need to stop or decrease the dose of some of your other medicines. What are the important possible side effects of PAXLOVID? Possible side effects of PAXLOVID are: Allergic Reactions. Allergic reactions can happen in people taking PAXLOVID, even after only 1 dose. Stop taking PAXLOVID and call your healthcare provider right away if you get any of the following symptoms of an allergic reaction: hives trouble swallowing or breathing swelling of the mouth, lips, or face throat tightness hoarseness skin rash Liver Problems. Tell your healthcare provider right away if you have any of these signs and symptoms of liver problems: loss of appetite, yellowing of your skin and the whites of eyes (jaundice), dark-colored urine, pale colored stools and itchy skin, stomach area (abdominal) pain. Resistance to HIV Medicines. If you have untreated HIV infection, PAXLOVID may lead to some HIV medicines not working as well in the future. Other possible side effects include: altered sense of taste diarrhea high blood pressure muscle aches These are not all the possible side effects of PAXLOVID. Not many people have taken PAXLOVID. Serious and unexpected side effects may happen. PAXLOVID is still being studied, so it is possible that all of the risks are not known at this time. What other treatment choices are there? Veklury (remdesivir) is FDA-approved for the treatment of tiyw-wk-ywmxhrzd COVID-19 in certain adults and children. Talk with your doctor to see if Veklury is appropriate for you. Like PAXLOVID, FDA may also allow for the emergency use of other medicines to treat people with COVID-19. Go to https://www.fda.gov/emergency-pre paredness-andresponse/mcm-legal-r vmuarersr-kdg-fihgse-framework/em tqhlhzl-sbq-sbasivgltrxbv for information on the emergency use of other medicines that are authorized by FDA to treat people with COVID-19. Your healthcare provider may talk with you about clinical trials for which you may be eligible. It is your choice to be treated or not to be treated with PAXLOVID. Should you decide not to receive it or for your child not to receive it, it will not change your standard medical care. What if I am or ? There is rad technologist treating women or mothers with PAXLOVID. For a mother and unborn baby, the benefit of taking PAXLOVID may be greater than the risk from the treatment. If you are , discuss your options and specific situation with your healthcare provider. It is recommended that you use effective barrier contraception or do not have sexual activity while taking PAXLOVID. If you are , discuss your options and specific situation with your healthcare provider. How do I report side effects with PAXLOVID? Contact your healthcare provider if you have any side effects that bother you or do not go away. Report side effects to FDA MedWatch at www.fda.gov/medwatch or call 8-895-TSP8968 or you can report side effects to [facility]. at the contact information provided below. Website Fax number Telephone number [employer] How should I store PAXLOVID? Store PAXLOVID tablets at room temperature, between 68?F to 77?F (20?C to 25?C). How can I learn more about COVID-19? Ask your healthcare provider. Visit https://www.cdc.gov/COVID19. Contact your local or state public health department. What is an Emergency Use Authorization (EUA)? The [place] FDA has made PAXLOVID available under an emergency access mechanism called an Emergency Use Authorization (EUA). The EUA is supported by a [place] of Health and Human Service (HHS) declaration that circumstances exist to justify the emergency use of drugs and biological products during the COVID-19 pandemic. PAXLOVID for the treatment of hbkc-cq-ribozncm COVID-19 in adults and children [12 years of age and older weighing at least 88 pounds (40 kg)] with positive results of direct SARS-CoV-2 viral testing, and who are at high risk for progression to severe COVID-19, including hospitalization or , has not undergone the same type of review as an FDA-approved product. In issuing an EUA under the COVID-19 public health emergency, the FDA has determined, among other things, that based on the total amount of scientific evidence available including data from adequate and well-controlled clinical trials, if available, it is reasonable to believe that the product may be effective for diagnosing, treating, or preventing COVID-19, or a serious or life-threatening disease or condition caused by COVID-19; that the known and potential benefits of the product, when used to diagnose, treat, or prevent such disease or condition, outweigh the known and potential risks of such product; and that there are no adequate, approved, and available alternatives. All of these criteria must be met to allow for the product to be used in the treatment of patients during the COVID-19 pandemic. The EUA for PAXLOVID is in effect for the duration of the COVID-19 declaration justifying emergency use of this product, unless terminated or revoked (after which the products may no longer be used under the EUA). Additional Information For general questions, visit the website or call the telephone number provided below. Website Telephone number www.VPLMC58nnklTvScheduleSoft (9-462-F15-OJJH) You can also go to www.Luma[employer]te or call for more information. Pfizer Distributed by [employer] [place] [address] [id number] Revised: 01 August 2021 documented in this encounter [facility] 02-23-2022 History of Present illness Narrative This Team Access Model visit is a virtual encounter. It required patient-provider interaction for the medical decision making as documented below. Patient agrees to the visit: Yes Patient Location: [place] CC: Patient presents with: Covid19 Concern HPI Eladia Tirado is a 76 year old female who is contacted today for a virtual visit. This is an established patient of Dr. Abilio Mcbride DO. Eladia is a new patient to me today. Concerns today... COVID --- COVID + with at home test this morning. Reports symptoms of chills, scratchy throat, fatigue, and dry cough started yesterday. Taking Nyquil that does help the cough. Interested in Paxlovid. Uploading COVID + test into [employer] now. No other concerns or complaints. REVIEW OF SYSTEMS See HPI PAST MEDICAL HISTORY Diagnosis Date Disorder of bone and cartilage, unspecified Esophagitis, unspecified Family history of malignant neoplasm of gastrointestinal tract Internal hemorrhoids without mention of complication Other and unspecified hyperlipidemia Seasonal allergies Unspecified hemorrhoids without mention of complication Hemorrhoids PAST SURGICAL HISTORY Procedure Laterality Date COLONOSCOPY 12/11/2016 normal, repeat in 5 yrs due to family history COLONOSCOPY FLX DX W/COLLJ SPEC WHEN PFRMD 2002 Colonoscopy COLONOSCOPY FLX DX W/COLLJ SPEC WHEN PFRMD 10/29/11 repeat 5 years EGD 12/11/2016 gastritis and fundic gland polyps FOOT SURGERY HX Right 08/2015 ALLERGIES Patient has no known allergies. MEDICATIONS atorvastatin (LIPITOR) 20 mg tablet Take 1 tablet by mouth daily at bedtime. For cholesterol. ibuprofen (ADVIL) 200 mg tablet Take 600 mg by mouth every 6 hours as needed for pain. cholecalciferol, vitamin D3, (VITAMIN D3 ORAL) Take 2 tablets by mouth once daily. MEDICATION, NON-DATABASE Aloe Gel MEDICATION, NON-DATABASE Tumeric meloxicam (MOBIC) 15 mg tablet Take 1 tablet by mouth once daily. As needed for neck pain, Take with food. famotidine (PEPCID ORAL) Take 20 mg by mouth. omega-3 fatty acids(FISH OIL 500 MG CAP) Take one(1) capsule daily. MULTIVITAMIN TAB Take one(1) tablet daily. FAMILY HISTORY Problem Relation Age of Onset Hypertension Mother Lipids Mother Blood Disease Mother Heart Mother CAD, CABG Kidney Disease Mother ESRD, on HD Cancer Father brain Heart Brother Heart Sister CAD, smoker Cancer Maternal Grandfather colon Cancer Maternal Aunt colon Colon Cancer Brother 50 Colon Cancer Brother 60 Social History Tobacco Use Smoking status: Never Smokeless tobacco: Never Vaping Use Vaping Use: Never used Substance Use Topics Alcohol use: Yes Comment: glass of wine daily Drug use: No EXAM: Deferred physical exam as visit was completed over the phone Patient is speaking in complete sentences without obvious respiratory distress or audible wheezing. Virtual visit completed using video, limited exam completed. GENERAL: alert and appropriate, in no distress, well-hydrated, well nourished, and happy, smiling, interactive SKIN: no rash noted HEAD: normocephalic, no abnormality or lesion noted DATA REVIEWED: Most recent labs and imaging results. ADVANCE DIRECTIVE DISCUSSION Never done DEPRESSION ASSESSMENT Never done DIABETES SCREEN due on 01/26/2025 DTAP,TDAP,TD(2 - Td or Tdap) due on 10/22/2025 BONE DENSITY Completed INFLUENZA Completed HEPATITIS C SCREENING Completed SHINGRIX VACCINE Completed COVID-19 VACCINE Completed PNEUMOCOCCAL: 65+ Completed ASSESSMENT/PLAN: 1. COVID-19 - ICD9: 079.89, ICD10: U07.1 Paxlovid BID x 5 days. Discussed CDC guidelines. Discussed red flag symptoms and when to seek immediate medical attention. - NIRMATRELVIR 300 MG (150 MG X2)-RITONAVIR 100 MG TABLET,DOSE PACK(EUA) Prescription instructions reviewed with patient as applicable. Potential red flag symptoms discussed with the patient. Reviewed appropriate action plan to take if red flag symptoms occur. Patient agreeable to treatment plan. During this patient visit I have spent approximately 15 minutes in counseling regarding treatment options, medications, and test results. Ni José APRN.JEROMY Nirmatrelvir/Ritonavir (Paxlovid) Eligibility and Patient Discussion [facility] Formulary Restriction Criteria: Adult outpatients 18 years and older with ALL of the following: [x] Patient has positive SARS-COV-2 viral test (PCR or antigen test) during current illness [x] Patient has symptoms for 5 days or less [x] Not requiring hospitalization at any time for management of COVID-19 [x] Not requiring supplemental oxygen or a change in baseline supplemental oxygen [x] Not utilized for pre-exposure or post-exposure prophylaxis for prevention of COVID-19 [x] Patient does not have severe renal impairment (eGFR < 30 mL/min) or severe hepatic impairment (Child-[place] Class C) [x] Meeting at least one of the criteria for high risk of progression to severe COVID-19: [x] Age over 65 years [] Cancer [] Chronic kidney disease [] Chronic liver disease [] Chronic lung diseases, including cystic fibrosis [] Dementia or other neurological conditions [] Diabetes (type 1 or type 2) [] Disabilities, including Down syndrome and neurodevelopmental disorders [] Heart conditions [] HIV infection [] Immunocompromised state [] Mental health conditions [] Medical related technological dependence (tracheostomy, gastrostomy, or positive pressure ventilation (not related to COVID) [] Overweight and obesity (BMI greater or equal to 25 for adults) [] Physical inactivity [] [] Sickle cell disease or thalassemia [] Smoking, current or former [] Solid organ or blood stem cell transplant [] Stroke or cerebrovascular disease [] Substance use disorders [] Tuberculosis [] People from racial and ethnic minority groups Criteria above are met: Yes Date of Positive Test:02/23/22 Date of Symptom Onset: 02/22/22 Patient received COVID vaccine: Yes Drug-Drug interactions reviewed: Yes. No drug interactions were identified. I have discussed the use of the investigational therapeutic, nirmatrelvir/ritonavir, for the treatment of mild to moderate COVID-19 and its use under Emergency Use Authorization with the patient. The patient was informed that nirmatrelvir/ritonavir is not an FDA approved drug and that it is authorized for use under this Emergency Use Authorization. The patient was also informed of the significant known benefits and potential risks of nirmatrelvir/ritonavir, and the extent to which such potential risks and benefits are unknown. The patient was informed that there is mandatory reporting of all medication errors and serious adverse events potentially related to nirmatrelvir/ritonavir treatment within 7 calendar days from the onset of the event and that events up to 28 days after completion of therapy need to be reported. The discussion included alternatives to receiving nirmatrelvir/ritonavir, including clinical trials, and potential the risks and benefits of those alternatives. The patient was provided electronically with the Fact Sheet for Patients, Parents and Caregivers. The patient was also instructed that in addition to the treatment with nirmatrelvir/ritonavir, he/she should continue to self-isolate and use infection control measures (e.g., wear mask, isolate, social distance, avoid sharing personal items, clean and disinfect high touch surfaces, and frequent handwashing) according to CDC guidelines. The patient stated understanding and gave verbal consent to proceeding with nirmatrelvir/ritonavir treatment. Ni José APRN.JEROMY February 23, 2022 2:29 PM documented in this encounter [facility] 01-27-2022 Miscellaneous Notes Phoned patient and updated her with provider's message. Patient voiced understanding. Please inform patient that overall her labs are stable except for low sodium and mildly low chloride. Would recommend increasing these electrolytes in her diet such as drinking a small V8 juice or OJ daily (4-6 oz) Abilio Mcbride DO documented in this encounter [facility] 01-26-2022 History of Present illness Narrative CC: Eladia Tirado is a 76 year old female who presents to the office for follow up HPI: Osteopenia, hasn't had a recent bone density. Did have a fall and right humerus fracture- treated by Orthopedic surgeon Dr. Driscoll. Just finishing up with PHYSICAL THERAPY and will see surgeon this next week. HPL, taking lipitor, no SE with medication Willing to do fasting labs Need for mammogram. Has scheduled a colonoscopy and EGD upcoming PAST MEDICAL HISTORY Diagnosis Date Disorder of bone and cartilage, unspecified Esophagitis, unspecified Family history of malignant neoplasm of gastrointestinal tract Internal hemorrhoids without mention of complication Other and unspecified hyperlipidemia Seasonal allergies Unspecified hemorrhoids without mention of complication Hemorrhoids PAST SURGICAL HISTORY Procedure Laterality Date COLONOSCOPY 12/11/2016 normal, repeat in 5 yrs due to family history COLONOSCOPY FLX DX W/COLLJ SPEC WHEN PFRMD 2002 Colonoscopy COLONOSCOPY FLX DX W/COLLJ SPEC WHEN PFRMD 10/29/11 repeat 5 years EGD 12/11/2016 gastritis and fundic gland polyps FOOT SURGERY HX Right 08/2015 Social History: Social History Tobacco Use Smoking status: Never Smokeless tobacco: Never Vaping Use Vaping Use: Never used Substance Use Topics Alcohol use: Yes Comment: glass of wine daily Drug use: No FAMILY HISTORY Problem Relation Age of Onset Hypertension Mother Lipids Mother Blood Disease Mother Heart Mother CAD, CABG Kidney Disease Mother ESRD, on HD Cancer Father brain Heart Brother Heart Sister CAD, smoker Cancer Maternal Grandfather colon Cancer Maternal Aunt colon Colon Cancer Brother 50 Colon Cancer Brother 60 Current Outpatient prescriptions: ibuprofen (ADVIL) 200 mg tablet Take 600 mg by mouth every 6 hours as needed for pain. cholecalciferol, vitamin D3, (VITAMIN D3 ORAL) Take 2 tablets by mouth once daily. MEDICATION, NON-DATABASE Aloe Gel MEDICATION, NON-DATABASE Tumeric meloxicam (MOBIC) 15 mg tablet Take 1 tablet by mouth once daily. As needed for neck pain, Take with food. famotidine (PEPCID ORAL) Take 20 mg by mouth. omega-3 fatty acids(FISH OIL 500 MG CAP) Take one(1) capsule daily. MULTIVITAMIN TAB Take one(1) tablet daily. atorvastatin (LIPITOR) 20 mg tablet Take 1 tablet by mouth daily at bedtime. For cholesterol. Allergies: ALLERGIES No Known Allergies ROS: See HPI PE: 01/26/22 0931 BP: 130/84 Pulse: 76 Resp: 16 Temp: 36.1 C (97 F) TempSrc: Left Tympanic Weight: 57.2 kg (126 lb) Gen: A&O, NAD, non-toxic appearing, Pleasant, cooperative HEENT: NT/AC, PERRLA, EOMs intact b/l, nares clear and patent b/l, pharynx without erythema, exudate or lesions. MMM, Uvula midline. EACs without erythema or debris. TMs pearly browning with intact landmarks b/l. Neck: supple, No cervical LAD, no thyromegaly, no carotid bruits CV: RRR, normal S1 and S2, no murmurs, no gallops, no rubs, Pulses 2+ and symmetric in UE and LE b/l Lungs: normal respiratory effort, CTA b/l, no wheezing or rhonchi or rales Abd: soft, NT, ND, +BS, no hepatosplenomegaly MS: FROM all 4 extremities Neuro: CN II-XII intact b/l, strength 5/5 b/l UE and LE, DTRs 2/4 UE and LE, sensation intact. Skin: warm, dry, intact, No rashes or lesions on exposed skin. Scattered solar lentigos and angiomas ASSESSMENT/PLAN: 1. Osteopenia, senile - ICD9: 733.90, ICD10: M85.80 (primary diagnosis) - set up for BMD AP Spine and Hip Unilateral - Reviewed the need for Calcium and Vitamin D supplements and weight bearing exercise as tolerated - COMP METABOLIC PANEL - CBC + DIFF 2. Hyperlipidemia, mixed - ICD9: 272.2, ICD10: E78.2 - to be determined upon return of lab results - Continue current medication. - Encouraged following a low fat, low cholesterol diet. - Discussed the benefits of regular aerobic exercise and weight loss. - ATORVASTATIN 20 MG TABLET 3. Neck pain - ICD9: 723.1, ICD10: M54.2 - chronic, stable. 4. Other osteoarthritis of spine, lumbar region - ICD9: 721.3, ICD10: M47.896 - chronic, stable. 5. Hyperglycemia - ICD9: 790.29, ICD10: R73.9 Recheck labs as ordered. - TSH BLD - HGB A1C - URINALYSIS, WITH MICROSCOPIC 6. Dyslipidemia - ICD9: 272.4, ICD10: E78.5 - suboptimal control - Encouraged following a low fat, low cholesterol diet. - Discussed the benefits of regular aerobic exercise and weight loss. - Check fasting lipid panel - COMP METABOLIC PANEL - CBC + DIFF - LIPID PANEL BASIC - TSH BLD - URINALYSIS, WITH MICROSCOPIC 7. Encounter for screening mammogram for malignant neoplasm of breast - ICD9: V76.12, ICD10: Z12.31 - Set up for mammogram, yearly mammogram recommended - Encouraged monthly BSE - Set up for bone mineral density - Follow up for annual exam in one year. - BARIBE SCREENING W NA 8. Other closed nondisplaced fracture of proximal end of right humerus with routine healing, subsequent encounter - ICD9: V54.11, ICD10: S42.294D - DXA-AXIAL SKELETON 9. Screening for osteoporosis - ICD9: V82.81, ICD10: Z13.820 - DXA-AXIAL SKELETON Abilio Mcbride DO To ER if develops chest pain, shortness of breath, or severe worsening of symptoms. Discussed risks, benefits, alternatives, and potential side effects of medications. Patient expressed understanding and agreed with the plan. Abilio Mcbride DO [address] [phone] documented in this encounter [facility] 01-15-2022 Miscellaneous Notes 12 Colon [facility] patient r/s to after her vacation 02/02/2022 Colonoscopy & EGD ASC documented in this encounter [facility] 01-13-2022 Nurse Note REVIEW OF SYSTEMS: General: The patient denies fatigue, denies weight loss, denies weight gain, denies feeling hot, and denies feelings of cold. Eyes: The patient denies glaucoma, denies eye injury/surgery, wears glasses or contacts. Ear/Nose/Throat: The patient denies allergies, NOTES hayfever, denies ear infections, and denies bloody noses. Cardiovascular: The patient denies chest pain, denies heart disease, denies high blood pressure,denies cardiac stent, denies prior heart attack, denies irregular heart beat, NOTES high cholesterol, denies poor circulation, denies heart failure, other cardiac issues, denies claudication, denies cold feet, denies peripheral arterial stent. Respiratory: The patient denies tuberculosis, denies pneumonia, denies frequent cough, denies pulmonary embolism, denies shortness of breath, and denies coughing up blood. Gastrointestinal: The patient denies difficulty swallowing, NOTES acid reflux, denies ulcers, denies vomiting, denies jaundice/hepatitis, denies gallbladder problems, denies black or tarry stools, denies hemorrhoids, denies bleeding from rectum, denies diverticulitis, denies constipation, NOTES diarrhea, denies loss of stool control, and denies hernias. Kidney/Bladder: The patient denies kidney stones, denies urine infections, and denies bloody urine. Skin: The patient denies a history of skin cancer, denies bleeding/changing moles, and denies a history of skin rash. Neurologic: The patient denies a history of epilepsy/convulsions, denies headaches, denies head/spinal injuries, and denies stroke/TIA. Psychiatric: The patient denies psychiatric medications, denies depression, and denies voices, denies substance abuse. Endocrine: The patient denies thyroid disorders, denies diabetes, and denies hormonal problems. Hematologic: The patient denies a history of bruising, denies bleeding, and denies anemia, denies blood clots. Infections: The patient denies a history of measles and mumps, denies rheumatic fever, and denies sexually transmitted diseases. Musculoskeletal: The patient denies back pain/injury, denies back problems, denies sciatica, denies knee/foot trouble, NOTES arthritis, or denies gout. When was patient's last Mammogram screening? 02/13/2021 Last Colonoscopy: 2017 Charissa Shaffer RN documented in this encounter [facility] 01-13-2022 History of Present illness Narrative HISTORY AND PHYSICAL Eladia Tirado 1945 REFERRING PHYSICIAN: Scar Astudillo MD CHIEF COMPLAINT: Consult (EGD and colonoscopy consult) HPI: The patient is a 76 year old female referred for endoscopy. Eladia notes family history of colon cancer and is due for high-risk screening colonoscopy. Patient denies any change in bowel habits, weight changes, blood in stools, black tarry stools or abdominal pain. The patient NOTES issues with reflux and history of gastritis, is wanting EGD rechecked at same setting as colonoscopy. Eladia has undergone prior endoscopy. Most recent colonoscopy 12/11/[address] Astudillo, no concerning findings. Repeat colonoscopy was recommended in 5 years due to family history of colon cancer. She also had EGD at that time showing multiple gastric polyps and GERD. Patient denies chest pain, shortness of breath or recent hospitalizations. Denies problems with sedation in the past. PAST MEDICAL HISTORY Diagnosis Date Disorder of bone and cartilage, unspecified Esophagitis, unspecified Family history of malignant neoplasm of gastrointestinal tract Internal hemorrhoids without mention of complication Other and unspecified hyperlipidemia Seasonal allergies Unspecified hemorrhoids without mention of complication Hemorrhoids PAST SURGICAL HISTORY Procedure Laterality Date COLONOSCOPY 12/11/2016 normal, repeat in 5 yrs due to family history COLONOSCOPY FLX DX W/COLLJ SPEC WHEN PFRMD 2002 Colonoscopy COLONOSCOPY FLX DX W/COLLJ SPEC WHEN PFRMD 10/29/11 repeat 5 years EGD 12/11/2016 gastritis and fundic gland polyps FOOT SURGERY HX Right 08/2015 Current Outpatient Medications Medication Sig ibuprofen (ADVIL) 200 mg tablet Take 600 mg by mouth every 6 hours as needed for pain. cholecalciferol, vitamin D3, (VITAMIN D3 ORAL) Take 2 tablets by mouth once daily. MEDICATION, NON-DATABASE Aloe Gel MEDICATION, NON-DATABASE Tumeric atorvastatin (LIPITOR) 20 mg tablet Take 1 tablet by mouth daily at bedtime. For cholesterol. meloxicam (MOBIC) 15 mg tablet Take 1 tablet by mouth once daily. As needed for neck pain, Take with food. famotidine (PEPCID ORAL) Take 20 mg by mouth. omega-3 fatty acids(FISH OIL 500 MG CAP) Take one(1) capsule daily. MULTIVITAMIN TAB Take one(1) tablet daily. No current facility-administered medications for this visit. ALLERGIES: Patient has no known allergies. PERSONAL HISTORY: Social History Tobacco Use Smoking status: Never Smokeless tobacco: Never Vaping Use Vaping Use: Never used Substance Use Topics Alcohol use: Yes Comment: glass of wine daily Drug use: No FAMILY HISTORY: FAMILY HISTORY Problem Relation Age of Onset Hypertension Mother Lipids Mother Blood Disease Mother Heart Mother CAD, CABG Kidney Disease Mother ESRD, on HD Cancer Father brain Heart Brother Heart Sister CAD, smoker Cancer Maternal Grandfather colon Cancer Maternal Aunt colon Colon Cancer Brother 50 Colon Cancer Brother 60 REVIEW OF SYMPTOMS: The review of systems data was entered by the nurse and reviewed by fl Nursing Notes: Charissa Shaffer RN 01/13/2022 11:25 AM Signed REVIEW OF SYSTEMS: General: The patient denies fatigue, denies weight loss, denies weight gain, denies feeling hot, and denies feelings of cold. Eyes: The patient denies glaucoma, denies eye injury/surgery, wears glasses or contacts. Ear/Nose/Throat: The patient denies allergies, NOTES hayfever, denies ear infections, and denies bloody noses. Cardiovascular: The patient denies chest pain, denies heart disease, denies high blood pressure,denies cardiac stent, denies prior heart attack, denies irregular heart beat, NOTES high cholesterol, denies poor circulation, denies heart failure, other cardiac issues, denies claudication, denies cold feet, denies peripheral arterial stent. Respiratory: The patient denies tuberculosis, denies pneumonia, denies frequent cough, denies pulmonary embolism, denies shortness of breath, and denies coughing up blood. Gastrointestinal: The patient denies difficulty swallowing, NOTES acid reflux, denies ulcers, denies vomiting, denies jaundice/hepatitis, denies gallbladder problems, denies black or tarry stools, denies hemorrhoids, denies bleeding from rectum, denies diverticulitis, denies constipation, NOTES diarrhea, denies loss of stool control, and denies hernias. Kidney/Bladder: The patient denies kidney stones, denies urine infections, and denies bloody urine. Skin: The patient denies a history of skin cancer, denies bleeding/changing moles, and denies a history of skin rash. Neurologic: The patient denies a history of epilepsy/convulsions, denies headaches, denies head/spinal injuries, and denies stroke/TIA. Psychiatric: The patient denies psychiatric medications, denies depression, and denies voices, denies substance abuse. Endocrine: The patient denies thyroid disorders, denies diabetes, and denies hormonal problems. Hematologic: The patient denies a history of bruising, denies bleeding, and denies anemia, denies blood clots. Infections: The patient denies a history of measles and mumps, denies rheumatic fever, and denies sexually transmitted diseases. Musculoskeletal: The patient denies back pain/injury, denies back problems, denies sciatica, denies knee/foot trouble, NOTES arthritis, or denies gout. When was patient's last Mammogram screening? 02/13/2021 Last Colonoscopy: 2016 Charissa Shaffer RN I have confirmed and edited as necessary, the PFSH and ROS obtained by others. Nataly Navarro PA-C PHYSICAL EXAMINATION: General: The patient is 76 year old female, well nourished, well hydrated in no acute distress. The patient is oriented to time, place, and person. VITALS: Blood pressure 124/80, pulse 74, temperature 36.7 C (98 F), height 162.6 cm (5' 4), weight 58.1 kg (128 lb), SpO2 98 %. There is no height or weight on file to calculate BMI. HEENT: Normal cephalic, ataumatic, pupils are equally round, sclera are anicteric, mucous membranes are moist, oropharynx is clear. Neck has no masses, asymmetry or lymphadenopathy. Respiratory: Clear to auscultation and percussion. Normal respiratory excursion and pattern. Cardiac: Examination is regular rate and rhythm. Normal S1/S2 Abdominal exam: Soft, nontender, with no palpable masses. No hepatosplenomegaly. No palpable hernias. Extremities: no clubbing, cyanosis or edema. No adenopathy. LABORATORY VALUES: As Noted RADIOLOGIC STUDIES: As Noted Assessment IMPRESSION: encounter for high-risk screening colonoscopy due to family history of colon cancer. GERD, history of gastritis PLAN: I have reviewed my findings with the surgeon. Will plan for upper and lower endoscopy. We discussed the risks and benefits of the planned endoscopy. I have informed the patient that complications can occur including failure to complete the endoscopy and perforation. The patient had the opportunity to ask questions concerning the planned endoscopy. My staff has also explained the procedure to the patient in understandable terms and has given the patient printed material concerning the procedure. The patient freely consents to surgery. The patient was offered a surgery/procedure at a [facility] facility. I have counseled the patient regarding the risk of exposure to and/or potential harm posed by the COVID-19 virus with having a surgery/procedure at this time versus the risk of delaying the surgery/procedure. It is not possible to know either the risk of delaying the surgery or procedure or chance of getting an infection with perfect accuracy, but a joint decision was made between the patient and myself to proceed at this time with endoscopy. I plan to use Miralax/Dulcolax bowel preparation I have explained to the patient the difference between IV conscious sedation and MAC anesthesia - and I have offered either, according to the patient's wishes. I have explained that with IV conscious sedation there is no anesthesia provider available and therefore there is a limitation of the amount of IV medications that can be given and that the patient may wake up in the middle of the procedure and/or experience pain/discomfort during the procedure. Further discussion was done and the patient was given the opportunity to ask questions and all questions were answered. The patient chooses IV conscious sedation Diagnoses: (Z12.11) Encounter for screening for malignant neoplasm of colon (primary encounter diagnosis) (Z80.0) Family history of colon cancer (K21.9) Gastroesophageal reflux disease, unspecified whether esophagitis present (Z87.19) History of gastritis I spent a total of 35 minutes on the date of the service which included preparing to see the patient, [id number] patient care, completing clinical documentation, obtaining and/or reviewing separately obtained history, performing a medically appropriate examination, counseling and educating the patient/family/caregiver, ordering medications, tests, or procedures, and care coordination (not separately reported). Nataly Navarro PA-C documented in this encounter [facility] 01-24-2021 History of Present illness Narrative Radiology Service Progress Note PATIENT NAME: Eladia Tirado DATE OF SERVICE: January 24, 2021 TIME: 11:35 AM PATIENT IDENTITY VERIFICATION COMPLETED USING TWO (2) IDENTIFIERS: Name and Date of confirmed by patient verbally. FALL SCREENING: Has the patient had 2 falls in the last year or 1 fall with injury or currently using an Ambulatory Assistive Device (Walker, Cane, Wheelchair, Crutches, etc.)? No PATIENT GENDER DATA: Female. status: : No status: NO. PATIENT RELEVANT IMPLANT DATA REVIEWED: Not Applicable RADIOLOGY DEPARTMENT: General X-ray: Exam(s) Completed: Spine X-Ray(s): Cervical AP / LAT / OBL PERIPHERAL IV DATA: Not applicable SIGNED BY: RT Russell(R) January 24, 2021 11:35 AM documented in this encounter [facility] Evaluation note No assessment inform ation available [facility] Work Phone: Evaluation note Diagnosis Hyperlipidemia, mixed Mixed hyperlipidemia [facility] Diagnosis Encounter for screening for malignant neoplasm of colon- Primary Special screening for malignant neoplasms, colon Family history of colon cancer Family history of malignant neoplasm of gastrointestinal tract Gastroesophageal reflux disease, unspecified whether esophagitis present History of gastritis Personal history of other diseases of digestive system [facility] Diagnosis Family history of colon cancer- Primary Family history of malignant neoplasm of gastrointestinal tract Gastroesophageal reflux disease, unspecified whether esophagitis present History of gastritis Personal history of other diseases of digestive system [facility] Diagnosis Osteopenia, senile- Primary Disorder of bone and cartilage, unspecified Hyperlipidemia, mixed Mixed hyperlipidemia Neck pain Cervicalgia Other osteoarthritis of spine, lumbar region Hyperglycemia Other abnormal glucose Dyslipidemia Other and unspecified hyperlipidemia Encounter for screening mammogram for malignant neoplasm of breast Other screening mammogram Other closed nondisplaced fracture of proximal end of right humerus with routine healing, subsequent encounter Screening for osteoporosis Special screening for osteoporosis [facility] Diagnosis COVID-19- Primary [facility] Diagnosis Screening for colon cancer- Primary Special screening for malignant neoplasms, colon [facility] Diagnosis Other osteoporosis with current pathological fracture, sequela- Primary [facility] Diagnosis Other osteoporosis with current pathological fracture, sequela- Primary Special screening for malignant neoplasms, colon- Primary Gastroesophageal reflux disease without esophagitis Esophageal reflux [facility] Diagnosis Family history of colon cancer- Primary Family history of malignant neoplasm of gastrointestinal tract GERD without esophagitis Esophageal reflux Hiatal hernia Diaphragmatic hernia without mention of obstruction or gangrene Chronic superficial gastritis without bleeding Atrophic gastritis without mention of hemorrhage [facility] Diagnosis Hyperlipidemia, mixed- Primary Mixed hyperlipidemia Hyperglycemia Other abnormal glucose [facility] Diagnosis Medicare annual wellness visit, subsequent- Primary Routine general medical examination at a [facility] Wellness examination Hyperlipidemia, mixed Mixed hyperlipidemia Hyperglycemia Other abnormal glucose Osteoporosis, unspecified osteoporosis type, unspecified pathological fracture presence Hypertension, unspecified type [facility] Diagnosis Special screening for malignant neoplasms, colon- Primary Gastroesophageal reflux disease without esophagitis Esophageal reflux Family history of colon cancer Family history of malignant neoplasm of gastrointestinal tract Gastroesophageal reflux disease, unspecified whether esophagitis present History of gastritis Personal history of other diseases of digestive system [facility] Diagnosis Other closed nondisplaced fracture of proximal end of right humerus with routine healing, subsequent encounter Screening for osteoporosis Special screening for osteoporosis [facility] Diagnosis Encounter for screening mammogram for malignant neoplasm of breast Other screening mammogram [facility] Diagnosis Encounter for screening mammogram for malignant neoplasm of breast- Primary Other screening mamm[facility] Diagnosis Encounter for screening mammogram for malignant neoplasm of breast Other screening mammogram [facility] Diagnosis Osteopenia, senile- Primary Disorder of bone and cartilage, unspecified Osteoporosis, unspecified osteoporosis type, unspecified pathological fracture presence [facility] Diagnosis Osteopenia, senile- Primary Disorder of bone and cartilage, unspecified Closed fracture of proximal end of right humerus with routine healing, unspecified fracture morphology, subsequent encounter [facility] Diagnosis Hypertension, unspecified type- Primary Medicare annual wellness visit, subsequent Routine general medical examination at a health care facility Screening for depression Encounter for screening examination for other mental health and behavioral disorders Encounter for immunization Need for other specified prophylactic vaccination against single bacterial disease Dyslipidemia Other and unspecified hyperlipidemia Hyperglycemia Other abnormal glucose Screening for diabetes mellitus Screening for thyroid disorder [facility] Diagnosis Neck pain Cervicalgia [facility] Diagnosis Hyperlipidemia, mixed Mixed hyperlipidemia [facility] Diagnosis Hyperlipidemia, mixed Mixed hyperlipidemia [facility] Diagnosis Screening for osteoporosis- Primary Special screening for osteoporosis [facility] Diagnosis Encounter for screening mammogram for malignant neoplasm of breast- Primary Other screening mammogram [facility] Diagnosis Encounter for screening mammogram for malignant neoplasm of breast Other screening mammogram [facility]* Diagnosis Hypertension, unspecified type [facility]* Diagnosis Screening for osteoporosis Special screening for osteoporosis documented in this encounter [facility] note* Diagnosis Osteopenia, senile- Primary Disorder of bone and cartilage, unspecified Closed fracture of proximal end of right humerus with routine healing, unspecified fracture morphology, subsequent encounter [facility] Diagnosis Hypertension, unspecified type [facility] Diagnosis Hyperlipidemia, mixed Mixed hyperlipidemia documented in this encounter [facility] Discharge instructions Additional Instructions Ice to your shoulder. Sling when you are up and around. You can take it off to sleep and to bathe. Tylenol and Motrin for pain. Head injury instructions return if severe headache, vomiting or not acting herself. Call and follow-up with orthopedic doctor for your shoulder fracture.[facility] Work Phone: Reason for referral (narrative)* Outpatient Procedure (Routine) - Authorized Specialty Diagnoses / Procedures Referred By Zakiya rivera Referred To Contact [facility] Diagnoses Gastroesophageal reflux disease, unspecified whether esophagitis present History of gastritis Procedures EGD DIAGNOSTIC ESOPHAGOGASTRODUODENOSC OPY TRANSORAL DIAGNOSTIC Nataly Navarro PA-C [address] [place] [address] [facility] [address] [place] [id number] Referral ID Status Reason Start Date Expiration Date Visits Requested Visits Authorized [id number] Authorized Auto-Generat ed Referral 01/13/2022 01/13/2023 1 1 * Outpatient Procedure (Routine) - Authorized Specialty Diagnoses / Procedures Referred By Contac t Referred To Contact [facility] Diagnoses Family history of colon cancer Procedures COLONOSCOPY SCREENING COLONOSCOPY FLX DX W/COLLJ SPEC WHEN PFRMD Nataly Navarro PA-C [address] [place] [address] [address] Referral ID Status Reason Start Date Expiration Date Visits Requested Visits Authorized [id number] Authorized Auto-Generat ed Referral 01/13/2022 01/13/2023 1 1 [facility] for referral (narrative)* Diagnostic Procedure Only (Routine) - Authorized Specialty Diagnoses / Procedures Referred By Contac t Referred To Contact [facility] Diagnoses Encounter for screening mammogram for malignant neoplasm of breast Procedures BARBIE SCREENING W NA SCREENING DIGITAL BREAST TOMOSYNTHESIS BI SCREENING MAMMOGRAPHY BI 2-VIEW BREAST INC Abiloi Hernandez DO [address] [place] [address] [facility] [address] [place] [id number] Referral ID Status Reason Start Date Expiration Date Visits Requested Visits Authorized [id number] Authorized Auto-Generat ed Referral 01/26/2022 02/25/2023 1 1 [facility] for referral (narrative)* Outpatient Procedure (Routine) - Closed Specialty Diagnoses / Procedures Referred By Contac t Referred To Contact [facility] Diagnoses Gastroesophageal reflux disease, unspecified whether esophagitis present History of gastritis Procedures EGD DIAGNOSTIC ESOPHAGOGASTRODUODENOSC OPY TRANSORAL DIAGNOSTIC Nataly Navarro PA-C [address] [place] [address] [facility] [address] [address] Referral ID Status Reason Start Date Expiration Date V isits Requested Visits Authorized [id number] Closed Auto-Generate d Referral 01/13/2022 01/13/2023 1 1 * Outpatient Procedure (Routine) - Closed Specialty Diagnoses / Procedures Referred By Zakiya t Referred To Contact [facility] Diagnoses Family history of colon cancer Procedures COLONOSCOPY SCREENING COLONOSCOPY FLX DX W/COLLJ SPEC WHEN PFRMD Nataly Navarro PA-C [address] [place] [address] [facility] [place] [address] [place] [id number] Referral ID Status Reason Start Date Expiration Date V isits Requested Visits Authorized [id number] Closed Auto-Generate d Referral 01/13/2022 01/13/2023 1 1 [facility] for referral (narrative)* Diagnostic Procedure Only (Routine) - Closed Specialty Diagnoses / Procedures Referred By Contsindi t Referred To Contact [facility] Diagnoses Encounter for screening mammogram for malignant neoplasm of breast Procedures BARBIE SCREENING W NA SCREENING DIGITAL BREAST TOMOSYNTHESIS BI SCREENING MAMMOGRAPHY BI 2-VIEW BREAST INC Abilio Hernandez, [address] [place] [address] [facility] [address] [place] [address] Referral ID Status Reason Start Date Expiration Date V isits Requested Visits Authorized [id number] Closed Auto-Generate d Referral 01/26/2022 02/25/2023 1 1 [facility] Diagnostic Procedure Only (Routine) - Authorized Specialty Diagnoses / Procedures Referred By Contsindi t Referred To Contact [facility] Diagnoses Encounter for screening mammogram for malignant neoplasm of breast Procedures BARBIE SCREENING W NA SCREENING DIGITAL BREAST TOMOSYNTHESIS BI SCREENING MAMMOGRAPHY BI 2-VIEW BREAST INC Ni Becerril APRN.[employer]ETING MANAGER [address] [place] [address] [facility] [address] [place] [address] Referral ID Status Reason Start Date Expiration Date Visits Requested Visits Authorized [id number] Authorized Auto-Generat ed Referral 04/23/2023 05/22/2024 1 1 [facility] for referral (narrative)* Diagnostic Procedure Only (Routine) - Closed Specialty Diagnoses / Procedures Referred By Contac t Referred To Contact [facility] Diagnoses Neck pain Procedures XR CERV OTHER 4V AP/LAT/OBL X-RAY NECK MINIMUM 4 VIEWS Abliio Mcbride DO [address] [place] [address] [place] [address] Referral ID Status Reason Start Date Expiration Date V isits Requested Visits Authorized [id number] Closed Auto-Generate d Referral 01/24/2021 02/23/2022 1 1 [facility] for referral (narrative)* Diagnostic Procedure Only (Routine) - New Request Specialty Diagnoses / Procedures Referred By Contac t Referred To Contact [facility] Diagnoses Screening for osteoporosis Procedures DXA-AXIAL SKELETON DXA BONE DENSITY STUDY 1/> SITES AXIAL SKEL Abilio Mcbride DO [address] [place] [address] [place] [address] Referral ID Status Reason Start Date Expiration Date Visits Requested Visits Authorized [id number] New Request Auto-Generat ed Referral 4 04/26/2025 1 1 [facility] for referral (narrative)* Diagnostic Procedure Only (Routine) - New Request Specialty Diagnoses / Procedures Referred By Contac t Referred To Contact [facility] Diagnoses Encounter for screening mammogram for malignant neoplasm of breast Procedures BARBIE SCREENING W NA SCREENING DIGITAL BREAST TOMOSYNTHESIS BI SCREENING MAMMOGRAPHY BI 2-VIEW BREAST INC CAD Marcie Medina APRN.[employer] MARKETING MANAGER [address] [place] [address] [facility] [address] [place] [address] Referral ID Status Reason Start Date Expiration Date Visits Requested Visits Authorized [id number] New Request Auto-Generat ed Referral 05/28/2025 1 1 [facility] for visit Narrative* Outpatient Procedure (Routine) - Closed Specialty Diagnoses / Procedures Referred By Zakiya rivera Referred To Contact [facility] Diagnoses Gastroesophageal reflux disease, unspecified whether esophagitis present History of gastritis Procedures EGD DIAGNOSTIC ESOPHAGOGASTRODUODENOSC OPY TRANSORAL DIAGNOSTIC Nataly Navarro PA-C [address] [place] [address] [facility] [place] [address] [place] [address] Referral ID Status Reason Start Date Expiration Date V isits Requested Visits Authorized [id number] Closed Auto-Generate d Referral 01/13/2022 01/13/2023 1 1 [facility] for visit Narrative* Diagnostic Procedure Only (Routine) - Closed Specialty Diagnoses / Procedures Referred By Zakiya rivera Referred To Contact [facility] Diagnoses Encounter for screening mammogram for malignant neoplasm of breast Procedures BARBIE SCREENING W NA SCREENING DIGITAL BREAST TOMOSYNTHESIS BI SCREENING MAMMOGRAPHY BI 2-VIEW BREAST INC CAD Abilio Mcbride L, DO [address] [place] [address] [facility] [address] [place] [address] Referral ID Status Reason Start Date Expiration Date V isits Requested Visits Authorized [id number] Closed Auto-Generate d Referral 01/26/2022 02/25/2023 1 1 [facility] for visit Narrative* Diagnostic Procedure Only (Routine) - Closed Specialty Diagnoses / Procedures Referred By Zakiya rivera Referred To Contact [facility] Diagnoses Encounter for screening mammogram for malignant neoplasm of breast Procedures BARBIE SCREENING W NA SCREENING DIGITAL BREAST TOMOSYNTHESIS BI SCREENING MAMMOGRAPHY BI 2-VIEW BREAST INC CAD Ni Wilde, [employer] MARKETING MANAGER [address] [place] [address] [facility] [address] [place] [address] Referral ID Status Reason Start Date Expiration Date V isits Requested Visits Authorized [id number] Closed Auto-Generate d Referral 04/23/2023 05/22/2024 1 1 [facility] for visit Narrative* Diagnostic Procedure Only (Routine) - Closed Specialty Diagnoses / Procedures Referred By Contac t Referred To Contact XR IMAGING Diagnoses Neck pain Procedures XR CERV OTHER 4V AP/LAT/OBL X-RAY NECK MINIMUM 4 VIEWS Abilio Mcbride, DO [address] [place] [address] Xr Imaging [id number] Referral ID Status Reason Start Date Expiration Date V isits Requested Visits Authorized [id number] Closed Auto-Generate d Referral 01/24/2021 02/23/2022 1 1 [facility] for visit Narrative* Diagnostic Procedure Only (Routine) - Closed Specialty Diagnoses / Procedures Referred By Contac t Referred To Contact BR IMAGING Diagnoses Encounter for screening mammogram for malignant neoplasm of breast Procedures BARBIE SCREENING W NA SCREENING DIGITAL BREAST TOMOSYNTHESIS BI SCREENING MAMMOGRAPHY BI 2-VIEW BREAST INC CAD Marcie Medina, ENGINEER AUTOMATED EQUIPMENT.GLOBAL MARKETING MANAGER [address] [place] [address] [facility] [address] [place] [address] Referral ID Status Reason Start Date Expiration Date V isits Requested Visits Authorized [id number] Closed Auto-Generate d Referral 04/28/2024 05/28/2025 1 1 [facility] for visit Narrative* Diagnostic Procedure Only (Routine) - Closed Specialty Diagnoses / Procedures Referred By Contac t Referred To Contact XR IMAGING Diagnoses Screening for osteoporosis Procedures DXA-AXIAL SKELETON DXA BONE DENSITY STUDY 1/> SITES AXIAL SKEL Abilio Mcbride, DO [address] [place] [address] Phone: tel: fax: [place] [address] Referral ID Status Reason Start Date Expiration Date V isits Requested Visits Authorized [id number] Closed Auto-Generate d Referral 03/27/2024 04/26/2025 1 1 [facility] Chief Complaint and Reason for Visit Chief Complaint FALL WITH R SHOULDER INJURY Chief Complaint LOCALIZED SWELLING, MASS/LUMP UPPER LIMB Advance Directives No Advanced Directives Records Found Advance Directive Response Recorded Date/ Time Advance Directives Yes September 09, 016 1:39pm Living Will Yes November 30, 2021 7:37pm Power of Team Guide Yes November 30 7:37pm Name of Medical Power of Team Guide NICHOLE TIRADO November 30, 2021 7:37pm Advance Directive Response Recorded Date/ Time Advance Directives Yes September 09 016 12:39pm Living Will Yes November 30, 2021 6:37pm Power of Team Guide Yes November 30 6:37pm Summary Purpose Family History No Family History Records FoundNo Family History Records Found Medications Administered Section Inactive Administered Medications - up to 3 most recent administrations Medication Order MAR Action Action Date Dose Rate Site benzocaine 20% 1 [place] (TOPEX) 1 [place], TOPICAL, DIRECTED, Starting on Wed06/16/22 at 1300, Until Wed06/16/22 at 165, DOSING DIRECTED BY PHYSICIAN FOR PROCEDURAL SEDATION ONLY - Pharmaceutical Waste: Aerosol -, Intraprocedure Given by [facility] 06/16/2022 12:37 PM EST 3 Sprays diphenhydrAMINE 12.5-50 mg injection (BENADRYL) 12.5-50 mg, INTRAVENOUS, DIRECTED, Starting on Wed06/16/22 at 1300, Until Wed06/16/22 at 1659, DOSING DIRECTED BY PHYSICIAN FOR PROCEDURAL SEDATION ONLY, Intraprocedure Given 06/16/2022 12:45 PM EST 50 mg fentaNYL 50 mcg/mL 25-100 mcg injection (SUBLIMAZE) 25-100 mcg, INTRAVENOUS, DIRECTED, Starting on Wed06/16/22 at 1300, Until Wed06/16/22 at 1659, DOSING DIRECTED BY PHYSICIAN FOR PROCEDURAL SEDATION ONLY, Intraprocedure Given by [facility] 06/16/2022 12:40 PM EST 50 mcg Given by [facility] 06/16/2022 12:38 PM EST 50 mcg lactated ringers iv infusion 30 mL/hr, INTRAVENOUS, CONTINUOUS, Starting on Wed06/16/22 at 1130, Until Wed06/16/22 at 1321, Preprocedure New Bag/Syringe/Bottle 06/16/2022 11:05 AM EST 30 mL/hr 30 mL/hr midazolam 1-5 mg injection (VERSED) 1-5 mg, INTRAVENOUS, DIRECTED, Starting on Wed06/16/22 at 1300, Until Wed06/16/22 at 1659, DOSING DIRECTED BY PHYSICIAN FOR PROCEDURAL SEDATION ONLY, Intraprocedure Given 06/16/2022 12:55 PM EST 1 mg Given by [facility] 06/16/2022 12:40 PM EST 2 mg Given by [facility] 06/16/2022 12:38 PM EST 3 mg Additional Source Comments Goals (unrecognized section and content) Goals may be documented in a n alternate sectionGoals may be documented in an alternate section Source Comments (unrecognize d section and content) In the event this informatio n is protected by the Federal Confidentiality of Alcohol and Drug Abuse Patient Records regulations: The Federal rules restrict any use of the information to criminally investigate or prosecute any alcohol or drug abuse patient.[facility] the event this information is protected by the Federal Confidentiality of Alcohol and Drug Abuse Patient Records regulations: The Federal rules restrict any use of the information to criminally investigate or prosecute any alcohol or drug abuse patient.[facility]In the event this information is protected by the Federal Confidentiality of Alcohol and Drug Abuse Patient Records regulations: The Federal rules restrict any use of the information to criminally investigate or prosecute any alcohol or drug abuse patient.[facility]In the event this information is protected by the Federal Confidentiality of Alcohol and Drug Abuse Patient Records regulations: The Federal rules restrict any use of the information to criminally investigate or prosecute any alcohol or drug abuse patient.[facility]In the event this information is protected by the Federal Confidentiality of Alcohol and Drug Abuse Patient Records regulations: The Federal rules restrict any use of the information to criminally investigate or prosecute any alcohol or drug abuse patient.[facility]In the event this information is protected by the Federal Confidentiality of Alcohol and Drug Abuse Patient Records regulations: The Federal rules restrict any use of the information to criminally investigate or prosecute any alcohol or drug abuse patient.[facility]In the event this information is protected by the Federal Confidentiality of Alcohol and Drug Abuse Patient Records regulations: The Federal rules restrict any use of the information to criminally investigate or prosecute any alcohol or drug abuse patient.[facility]In the event this information is protected by the Federal Confidentiality of Alcohol and Drug Abuse Patient Records regulations: The Federal rules restrict any use of the information to criminally investigate or prosecute any alcohol or drug abuse patient.[facility]In the event this information is protected by the Federal Confidentiality of Alcohol and Drug Abuse Patient Records regulations: The Federal rules restrict any use of the information to criminally investigate or prosecute any alcohol or drug abuse patient.[facility]In the event this information is protected by the Federal Confidentiality of Alcohol and Drug Abuse Patient Records regulations: The Federal rules restrict any use of the information to criminally investigate or prosecute any alcohol or drug abuse patient.[facility]In the event this information is protected by the Federal Confidentiality of Alcohol and Drug Abuse Patient Records regulations: The Federal rules restrict any use of the information to criminally investigate or prosecute any alcohol or drug abuse patient.[facility]In the event this information is protected by the Federal Confidentiality of Alcohol and Drug Abuse Patient Records regulations: The Federal rules restrict any use of the information to criminally investigate or prosecute any alcohol or drug abuse patient.[facility]In the event this information is protected by the Federal Confidentiality of Alcohol and Drug Abuse Patient Records regulations: The Federal rules restrict any use of the information to criminally investigate or prosecute any alcohol or drug abuse patient.[facility]In the event this information is protected by the Federal Confidentiality of Alcohol and Drug Abuse Patient Records regulations: The Federal rules restrict any use of the information to criminally investigate or prosecute any alcohol or drug abuse patient.[facility]In the event this information is protected by the Federal Confidentiality of Alcohol and Drug Abuse Patient Records regulations: The Federal rules restrict any use of the information to criminally investigate or prosecute any alcohol or drug abuse patient.[facility] HospitalIn the event this information is protected by the Federal Confidentiality of Alcohol and Drug Abuse Patient Records regulations: The Federal rules restrict any use of the information to criminally investigate or prosecute any alcohol or drug abuse patient.[facility] HospitalIn the event this information is protected by the Federal Confidentiality of Alcohol and Drug Abuse Patient Records regulations: The Federal rules restrict any use of the information to criminally investigate or prosecute any alcohol or drug abuse patient.[facility] HospitalIn the event this information is protected by the Federal Confidentiality of Alcohol and Drug Abuse Patient Records regulations: The Federal rules restrict any use of the information to criminally investigate or prosecute any alcohol or drug abuse patient.[facility] HospitalIn the event this information is protected by the Federal Confidentiality of Alcohol and Drug Abuse Patient Records regulations: The Federal rules restrict any use of the information to criminally investigate or prosecute any alcohol or drug abuse patient.[facility] HospitalIn the event this information is protected by the Federal Confidentiality of Alcohol and Drug Abuse Patient Records regulations: The Federal rules restrict any use of the information to criminally investigate or prosecute any alcohol or drug abuse patient.[facility]In the event this information is protected by the Federal Confidentiality of Alcohol and Drug Abuse Patient Records regulations: The Federal rules restrict any use of the information to criminally investigate or prosecute any alcohol or drug abuse patient.[facility] HospitalIn the event this information is protected by the Federal Confidentiality of Alcohol and Drug Abuse Patient Records regulations: The Federal rules restrict any use of the information to criminally investigate or prosecute any alcohol or drug abuse patient.[facility] HospitalIn the event this information is protected by the Federal Confidentiality of Alcohol and Drug Abuse Patient Records regulations: The Federal rules restrict any use of the information to criminally investigate or prosecute any alcohol or drug abuse patient.[facility] HospitalIn the event this information is protected by the Federal Confidentiality of Alcohol and Drug Abuse Patient Records regulations: The Federal rules restrict any use of the information to criminally investigate or prosecute any alcohol or drug abuse patient.[facility]In the event this information is protected by the Federal Confidentiality of Alcohol and Drug Abuse Patient Records regulations: The Federal rules restrict any use of the information to criminally investigate or prosecute any alcohol or drug abuse patient.[facility]In the event this information is protected by the Federal Confidentiality of Alcohol and Drug Abuse Patient Records regulations: The Federal rules restrict any use of the information to criminally investigate or prosecute any alcohol or drug abuse patient.[facility] HospitalIn the event this information is protected by the Federal Confidentiality of Alcohol and Drug Abuse Patient Records regulations: The Federal rules restrict any use of the information to criminally investigate or prosecute any alcohol or drug abuse patient.[facility]In the event this information is protected by the Federal Confidentiality of Alcohol and Drug Abuse Patient Records regulations: The Federal rules restrict any use of the information to criminally investigate or prosecute any alcohol or drug abuse patient.[facility]In the event this information is protected by the Federal Confidentiality of Alcohol and Drug Abuse Patient Records regulations: The Federal rules restrict any use of the information to criminally investigate or prosecute any alcohol or drug abuse patient.[facility] HospitalIn the event this information is protected by the Federal Confidentiality of Alcohol and Drug Abuse Patient Records regulations: The Federal rules restrict any use of the information to criminally investigate or prosecute any alcohol or drug abuse patient.[facility]In the event this information is protected by the Federal Confidentiality of Alcohol and Drug Abuse Patient Records regulations: The Federal rules restrict any use of the information to criminally investigate or prosecute any alcohol or drug abuse patient.[facility]In the event this information is protected by the Federal Confidentiality of Alcohol and Drug Abuse Patient Records regulations: The Federal rules restrict any use of the information to criminally investigate or prosecute any alcohol or drug abuse patient.[facility] HospitalIn the event this information is protected by the Federal Confidentiality of Alcohol and Drug Abuse Patient Records regulations: The Federal rules restrict any use of the information to criminally investigate or prosecute any alcohol or drug abuse patient.[facility] HospitalIn the event this information is protected by the Federal Confidentiality of Alcohol and Drug Abuse Patient Records regulations: The Federal rules restrict any use of the information to criminally investigate or prosecute any alcohol or drug abuse patient.[facility] HospitalIn the event this information is protected by the Federal Confidentiality of Alcohol and Drug Abuse Patient Records regulations: The Federal rules restrict any use of the information to criminally investigate or prosecute any alcohol or drug abuse patient.[facility] HospitalIn the event this information is protected by the Federal Confidentiality of Alcohol and Drug Abuse Patient Records regulations: The Federal rules restrict any use of the information to criminally investigate or prosecute any alcohol or drug abuse patient.[facility] HospitalIn the event this information is protected by the Federal Confidentiality of Alcohol and Drug Abuse Patient Records regulations: The Federal rules restrict any use of the information to criminally investigate or prosecute any alcohol or drug abuse patient.[facility] HospitalIn the event this information is protected by the Federal Confidentiality of Alcohol and Drug Abuse Patient Records regulations: The Federal rules restrict any use of the information to criminally investigate or prosecute any alcohol or drug abuse patient.[facility] HospitalIn the event this information is protected by the Federal Confidentiality of Alcohol and Drug Abuse Patient Records regulations: The Federal rules restrict any use of the information to criminally investigate or prosecute any alcohol or drug abuse patient.[facility] HospitalIn the event this information is protected by the Federal Confidentiality of Alcohol and Drug Abuse Patient Records regulations: The Federal rules restrict any use of the information to criminally investigate or prosecute any alcohol or drug abuse patient.[facility] HospitalIn the event this information is protected by the Federal Confidentiality of Alcohol and Drug Abuse Patient Records regulations: The Federal rules restrict any use of the information to criminally investigate or prosecute any alcohol or drug abuse patient.[facility] HospitalIn the event this information is protected by the Federal Confidentiality of Alcohol and Drug Abuse Patient Records regulations: The Federal rules restrict any use of the information to criminally investigate or prosecute any alcohol or drug abuse patient.[facility] HospitalIn the event this information is protected by the Federal Confidentiality of Alcohol and Drug Abuse Patient Records regulations: The Federal rules restrict any use of the information to criminally investigate or prosecute any alcohol or drug abuse patient.[facility] HospitalIn the event this information is protected by the Federal Confidentiality of Alcohol and Drug Abuse Patient Records regulations: The Federal rules restrict any use of the information to criminally investigate or prosecute any alcohol or drug abuse patient.[facility]In the event this information is protected by the Federal Confidentiality of Alcohol and Drug Abuse Patient Records regulations: The Federal rules restrict any use of the information to criminally investigate or prosecute any alcohol or drug abuse patient.[facility] HospitalIn the event this information is protected by the Federal Confidentiality of Alcohol and Drug Abuse Patient Records regulations: The Federal rules restrict any use of the information to criminally investigate or prosecute any alcohol or drug abuse patient.[facility] Reason for Visit (unrecogniz ed section and content) Reason Comments Refill Request Reason Comments Consult EGD and colonoscopy consult Reason Comments 10-12 Colon ASC Reason Comments Follow Up Reason Comments Covid19 Concern Reason Comments script Reason Comments New Reason Comments Osteoporosis Reason Comments Follow Up Reason Comments Results Reason Onset Date Comments Refill Request 08/22/2022 Reason Onset Date Comments Refill Request 08/29/2022 Reason Comments Benefits Investigation Reason Onset Date Comments Refill Request 11/07/2022 Reason Comments Patient Question Reason Comments medicare Medicare Wellness Exam Reason Onset Date Comments Refill Request 04/19/2023 Reason Comments Orders Reason Comments question- reclast injection Reason Onset Date Comments Refill Request 10/05/2023 Reason Comments Orders Reason Comments Non-Chemotherapy Treatment Specialty Diagnoses / Procedures Referred By Zakiya t Referred To Contact Diagnoses Osteopenia, senile Closed fracture of proximal end of right humerus with routine healing, unspecified fracture morphology, subsequent encounter Procedures INJECTION, ZOLEDRONIC ACID, 1 MG Abilio Mcbride, DO [address] [place] [address] [facility] [address] [place] [address] Referral ID Status Reason Start Date Expiration Date V isits Requested Visits Authorized [id number] Authorized 10/05/2023 05/16/2024 99 99 Reason Comments Medicare Wellness Exam Reason Onset Date Comments Refill Request 02/19/2024 Reason Onset Date Comments Refill Request 02/21/2024 Reason Onset Date Comments Population Health Navigation Outreach 05/29/2024 AWV INITIATIVE Reason Onset Date Comments Refill Request 07/14/2024 Reason Comments Appointment Specialty Diagnoses / Procedures Referred By Contac t Referred To Contact Diagnoses Osteopenia, senile Closed fracture of proximal end of right humerus with routine healing, unspecified fracture morphology, subsequent encounter Procedures INJECTION, ZOLEDRONIC ACID, 1 MG Abilio Mcbride, DO [address] [place] [address] Phone: tel: fax: Hematology/Oncology [address] [place] [address] Phone: tel: fax: Referral ID Status Reason Start Date Expiration Date V isits Requested Visits Authorized [id number] Authorized 10/05/2023 05/16/2025 99 99 Care Teams (unrecognized sec tion and content) 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 Relationship Specialty Start Date End Date Abilio Mcbride, DO [address] [place] [address] PCP - General Family Practice 11/16/17 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 Relationship Specialty Start Date End Date Abilio Mcbride DO [address] [place] [address] PCP - General Family Practice 11/16/17 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 Relationship Specialty Start Date End Date Abilio Mcbride, DO [address] [place] [address] PCP - General Family Practice 11/16/17 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 Relationship Specialty Start Date End Date Abilio Mcbride, DO [address] [place] [address] PCP - General Family Practice 11/16/17 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 Relationship Specialty Start Date End Date Abilio Mcbride, DO [address] [place] [address] PCP - General Family Medicine 11/16/17 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 Relationship Specialty Start Date End Date Abliio Mcbride, DO [address] [place] [address] PCP - General Family Medicine 11/16/17 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 Relationship Specialty Start Date End Date Abilio Mcbride, DO [address] [place] [address] PCP - General Family Medicine 11/16/17 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 Relationship Specialty Start Date End Date Abilio Mcbride, DO [address] [place] [address] PCP - General Family Medicine 11/16/17 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 Relationship Specialty Start Date End Date Abilio Mcbride, DO [address] [place] [address] PCP - General Family Medicine 11/16/17 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 Relationship Specialty Start Date End Date Abilio Mcbride, [address] [place] [address] PCP - General Family Medicine 11/16/17 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 Relationship Specialty Start Date End Date Abilio Mcbride, [address] [place] [address] PCP - General Family Medicine 11/16/17 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 Relationship Specialty Start Date End Date Abilio Mcbride, DO [address] [place] [address] PCP - General Family Medicine 11/16/17 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 Relationship Specialty Start Date End Date Abilio Mcbride DO [address] [place] [address] PCP - General Family Medicine 11/16/17 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 Relationship Specialty Start Date End Date Abilio Mcbride, [address] [place] [address] PCP - General Family Medicine 11/16/17 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 Relationship Specialty Start Date End Date Abilio Mcbride, [address] [place] [address] PCP - General Family Medicine 11/16/17 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 Relationship Specialty Start Date End Date Abilio Mcbride, [address] [place] [address] PCP - General Family Medicine 11/16/17 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 Relationship Specialty Start Date End Date Abilio Mcbride, [address] [place] [address] PCP - General Family Medicine 11/16/17 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 Relationship Specialty Start Date End Date Abilio Mcbride DO [address] [place] [address] PCP - General Family Medicine 11/16/17 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 Relationship Specialty Start Date End Date Abilio Mcbride, [address] [place] [address] PCP - General Family Medicine 11/16/17 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 Relationship Specialty Start Date End Date Abilio Mcbride DO [address] [place] [address] PCP - General Family Medicine 11/16/17 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 Relationship Specialty Start Date End Date Abilio Mcbride, [address] [place] [address] PCP - General Family Medicine 11/16/17 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 Relationship Specialty Start Date End Date Abilio Mcbride DO [address] [place] [address] PCP - General Family Medicine 11/16/17 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 Relationship Specialty Start Date End Date Abilio Mcbride DO [address] [place] [address] PCP - General Family Medicine 11/16/17 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 Relationship Specialty Start Date End Date Abilio Mcbride DO [address] [place] [address] PCP - General Family Medicine 11/16/17 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 Relationship Specialty Start Date End Date Abilio Mcbride DO [address] [place] [address] PCP - General Family Medicine 11/16/17 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 Relationship Specialty Start Date End Date Abilio Mcbride DO [address] [place] [address] PCP - General Family Medicine 11/16/17 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 Relationship Specialty Start Date End Date Abilio Mcbride DO [address] [place] [address] PCP - General Family Medicine 11/16/17 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 Relationship Specialty Start Date End Date Abilio Mcbride DO [address] [place] [address] PCP - General Family Medicine 11/16/17 Ni Wilde APRN.GLOBAL MARKETING MANAGER [address] [place] [address] Accounting Clerks Supervisor Family [place] 04/23/24 Marcie Medina, ENGINEER AUTOMATED EQUIPMENT.GLOBAL MARKETING MANAGER [address] [place] [place] [address] [facility] 04/23/24 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 Relationship Specialty Start Date End Date Abilio Mcbride DO [address] [place] [place] [address] PCP - General Family Medicine 11/16/17 Ni Wilde, ENGINEER AUTOMATED EQUIPMENT.GLOBAL MARKETING MANAGER [address] [place] [place] [address] [facility] 04/23/24 Marcie Medina, ENGINEER AUTOMATED EQUIPMENT.GLOBAL MARKETING MANAGER [address] [place] [address] [facility] 04/23/24 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 Relationship Specialty Start Date End Date Abilio Mcbride DO [address] [place] [place] [address] PCP - General Family Medicine 11/16/17 Ni Wilde, ENGINEER AUTOMATED EQUIPMENT.GLOBAL MARKETING MANAGER [address] [place] [address] [facility] 04/23/24 Marcie Medina, ENGINEER AUTOMATED EQUIPMENT.GLOBAL MARKETING MANAGER [address] [place] [place] [address] [facility] 04/23/24 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 Relationship Specialty Start Date End Date Abilio Mcbride DO [address] [place] [address] PCP - General Family Medicine 11/16/17 Ni Wilde, ENGINEER AUTOMATED EQUIPMENT.GLOBAL MARKETING MANAGER [address] [place] [address] [facility] 04/23/24 DevanteMarcie, ENGINEER AUTOMATED EQUIPMENT.GLOBAL MARKETING MANAGER [address] [facility] [address] Accounting Clerks Supervisor [facility] 04/23/24 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 Relationship Specialty Start Date End Date Abilio Mcbride DO [address] [facility] [place] [address] PCP - General Family Medicine 11/16/17 Marcie Medina, ENGINEER AUTOMATED EQUIPMENT.GLOBAL MARKETING MANAGER [address] [place] [address] [facility] 04/23/24 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 Relationship Specialty Start Date End Date Abilio Mcbride DO [address] [place] [address] PCP - General Family Medicine 11/16/17 Marcie Medina, ENGINEER AUTOMATED EQUIPMENT.GLOBAL MARKETING MANAGER [address] [place] [address] [facility] 04/23/24 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 Relationship Specialty Start Date End Date Abilio Mcbride DO [address] [place] [address] PCP - General Family Medicine 11/16/17 DevanteMarcie, ENGINEER AUTOMATED EQUIPMENT.GLOBAL MARKETING MANAGER [address] [place] [address] [facility] 04/23/24 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 Relationship Specialty Start Date End Date Abilio Mcbride DO [address] [place] [address] PCP - General Family Medicine 11/16/17 DevanteMarcie, ENGINEER AUTOMATED EQUIPMENT.GLOBAL MARKETING MANAGER [address] [place] [address] [employer]er[employer] Supervisor [facility] 04/23/24 Tiffani Rodriguez, ENGINEER AUTOMATED EQUIPMENT.GLOBAL MARKETING MANAGER [address] [place] [address] [facility] 10/30/24 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 Relationship Specialty Start Date End Date Abilio Mcbride DO [address] [place] [address] PCP - General Family Medicine 11/16/17 DevanteMarcie, ENGINEER AUTOMATED EQUIPMENT.GLOBAL MARKETING MANAGER [address] [place] [address] Accounting [employer]erks Supervisor [facility] 04/23/24 Tiffani Rodriguez, ENGINEER AUTOMATED EQUIPMENT.GLOBAL MARKETING MANAGER [address] [place] [address] [facility] 10/30/24 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 Relationship Specialty Start Date End Date Abilio Mcbride DO [address] [place] [address] PCP - General Family Medicine 11/16/17 DevanteMarcie, ENGINEER AUTOMATED EQUIPMENT.GLOBAL MARKETING MANAGER [address] [place] [address] Accounting [employer]erks Supervisor [facility] 04/23/24 Tiffani Rodriguez, ENGINEER AUTOMATED EQUIPMENT.GLOBAL MARKETING MANAGER [address] [place] [address] [employer]ing [employer]erks Supervisor [facility] 10/30/24 INFORMATION SOURCE (unrecogn ized section and content) DATE CREATED AUTHOR 05/06/2022 [facility] DATE CREATED AUTHOR AUTHOR'Justin CRABTREE 02/21/2025 [facility] FOR RECORDS PERTAINING TO PATIENTS WHO ARE OR HAVE BEEN ENROLLED IN A CHEMICAL DEPENDENCY/SUBSTANCEABUSE PROGRAM, SOME INFORMATION MAY BE OMITTED. This clinical summary was aggregated from multiple sources. Caution should be exercised in using it in the provision of clinical care. This summary normalizes information from multiple sources, and as a consequence, information in this document may materially change the coding, format and clinical context of patient data. In addition, data may be omitted in some cases. CLINICAL DECISIONS SHOULD BE BASED ON THE PRIMARY CLINICAL RECORDS. [facility]. provides no warranty or guarantee of the accuracy or completeness of information in this document.
[2025-05-04 09:04] LABS: Hematocrit 35.7 % (37-47); Hemoglobin 12.8 g/dL (12.0-15.0); Mean Corp Hgb Conc 35.9 g/dL (32-36); Mean Corpuscular Volume 91.1 fL (81-99); Mean Platelet Vol. 9.4 fl (6.2-12.0); Platelet Count 246 K/mm3 (150-450); RBC Distribution Width CV 12.5 % (11.6-14.6); RBC Distribution Width SD 41.6 fl (35.1-43.9); Red Blood Count 3.92 M/mm3 (4.2-5.4); White Blood Count 4.8 K/mm3 (4.4-11.0)
[2025-05-04 09:35] LABS: Anion Gap 11 (5-15); BUN 8 mg/dL (4-19); BUN/Creat Ratio 11.0 RATIO (10-20); Calcium,Total 9.1 mg/dL (7.6-11.0); Carbon Dioxide 24.1 mmol/L (21.0-32.0); Chloride 96 mmol/L (98-108); Glucose 111 mg/dL (70-99); Potassium 4.5 mmol/L (3.3-5.1)
== END | disposition home or self-care (01) ==
LOC: PSN 07:42
PROVIDERS: PCP Student in an Organized Health Care Education/Training Program; Referring Provider Physician Assistant Surgical; Visit Provider Physician Assistant Surgical
DX: Z01.810 Encounter for preprocedural cardiovascular examination (principal); Z01.818 Encounter for other preprocedural examination
CPT/HCPCS: 36415; 80048; 85027; 93005